=== PATIENT | male | born 1940 | race African-American/Black ===

== ENCOUNTER 2017-06-06 09:22 | Emergency (ER) | payer BC ==
[~2017-06-06 09:22] MED LIST: LISI-334 PO
[2017-06-06 09:38] VITALS: BP 148/67
--- NOTE | 2017-06-06 09:48 | PHYS DOC ---
Past Medical History Past Medical History: Hypertension Additional Past Medical Histor: GOUT, ABDOMINAL AND UMBILICAL HERNIA Past Surgical History: Other Additional Past Surgical Histo: VASECTOMY, HERNIA REPAIR Alcohol Use: Occasionally Drug Use: None Adult General Chief Complaint Chief Complaint: R foot/ankle pain HPI HPI Patient is a 77 year old male who presents with R foot and ankle pain after a fall on Monday. He was standing on a wall and fell striking his R ankle/foot. He had pain and swelling and had been treating it as a gout attack with maciel-lord and red onion. Denies other injury, no headache/blurry vision/other extremity pain, no cp/sob/abd pain Review of Systems Review of Systems Constitutional: Denies fever or chills [] Eyes: Denies change in visual acuity, redness, or eye pain [] HENT: Denies nasal congestion or sore throat [] Respiratory: Denies cough or shortness of breath [] Cardiovascular:denies chest pain GI: Denies abdominal pain, nausea, vomiting, bloody stools or diarrhea [] : Denies dysuria or hematuria [] Musculoskeletal: Denies back pain Integument: Denies rash or skin lesions [] Neurologic: Denies headache, focal weakness or sensory changes [] All other systems were reviewed and found to be within normal limits, except as documented in this note. Allergies Allergies Allergies Coded Allergies Type Severity Reaction Last Updated Verified No Known Drug Allergies 10/25/13 No Physical Exam Physical Exam Constitutional: Well developed, well nourished, no acute distress, non-toxic appearance. HENT: Normocephalic, atraumatic Eyes: conjunctiva normal, no discharge. Neck:supple Cardiovascular:Heart rate regular with regular rhythm Lungs & Thorax: No respiratory distress Skin: Warm, dry Extremities: R foot with ttp lateral maleolus, anterior distal foot ttp, no deformity, FROM, normal strength, cap refill >3s, dp pulse intact, mild edema Neurologic: Alert and oriented X 3, normal sensory function, no focal deficits noted. Psychologic: mood normal. Current Patient Data Vital Signs Vital Signs Date Time Temp Pulse Resp B/P (MAP) Pulse Ox O2 Delivery O2 Flow Rate FiO2 06/06/17 09:38 97.5 92 16 148/67 (94) 98 Room Air 97.5 EKG EKG [] Radiology/Procedures Radiology/Procedures XRay R foot History: Fall, pain There is a mild hallux valgus deformity with moderate degenerative change at the first MTP joint. There is deformity of the fifth metatarsal shaft compatible with an old healed fracture. Minimal spurring is present at the midfoot level. A tiny calcific density along the dorsal aspect of the anterior portion of the talus is probably old. No acute fracture or dislocation is identified. There is mild generalized subcutaneous edema. IMPRESSION: 1. Chronic findings as described above. 2. No acute bony abnormality is detected. ankle:Indication: Fall with pain in the right ankle and right foot. Time of exam 9:43 AM 3 views of the right ankle were obtained. The alignment is normal. Ankle mortise is well-maintained. The talar dome is smooth. No fracture is seen. There is a large plantar calcaneal spur. Impression: No acute bony abnormality is detected. Course & Med Decision Making Course & Med Decision Making Pertinent Labs and Imaging studies reviewed. (See chart for details) pt declined pain meds. XRay R foot/ankle performed. No acute fracture/dislocation noted. Pt placed in stuart wrap, sprain care instructions given. Ibuprofen RX Dragon Disclaimer Dragon Disclaimer This electronic medical record was generated, in whole or in part, using a voice recognition dictation system. Departure Departure Impression: Primary Impression: Ankle sprain Additional Impression: Hand pain Disposition: 01 HOME, SELF-CARE Condition: STABLE Referrals: YANI CORBETT MD (PCP) Scripts Ibuprofen (IBUPROFEN) 600 Mg Tablet 600 MG PO PRN Q6HRS Y for PAIN, #20 TAB take with food or milk Prov: BETTY ANDERSEN MD 06/06/17 Problem Qualifiers BETTY ANDERSEN MD Jun 06, 2017 09:48
--- NOTE | 2017-06-06 10:00 | RAD ---
Indication: Fall with pain in the right ankle and right foot. Time of exam 9:43 AM 3 views of the right ankle were obtained. The alignment is normal. Ankle mortise is well-maintained. The talar dome is smooth. No fracture is seen. There is a large plantar calcaneal spur. Impression: No acute bony abnormality is detected.
--- NOTE | 2017-06-06 10:02 | RAD ---
Right foot, 3 views, 06/06/2017: History: Fall, pain There is a mild hallux valgus deformity with moderate degenerative change at the first MTP joint. There is deformity of the fifth metatarsal shaft compatible with an old healed fracture. Minimal spurring is present at the midfoot level. A tiny calcific density along the dorsal aspect of the anterior portion of the talus is probably old. No acute fracture or dislocation is identified. There is mild generalized subcutaneous edema. IMPRESSION: 1. Chronic findings as described above. 2. No acute bony abnormality is detected.
[2017-06-06] MEDS ORDERED: IBUP-1007 PO (10:07)
== END 2017-06-06 10:14 | disposition home or self-care (01) ==
LOC: ER 09:22
DX: S93.401A Sprain of unspecified ligament of right ankle, initial encounter (principal); M79.641 Pain in right hand; I10 Essential (primary) hypertension; M10.9 Gout, unspecified; W01.198A Fall on same level from slipping, tripping and stumbling with subsequent striking against other object, initial encounter; Y93.89 Activity, other specified; Y92.89 Other specified places as the place of occurrence of the external cause; Y99.8 Other external cause status
CPT/HCPCS: 73610; 73630; 99284

== ENCOUNTER → 2018-01-29 | Outpatient (CLI) | payer BC | END | disposition home or self-care (01) | LOC: RAD 13:04 | DX: M17.11 Unilateral primary osteoarthritis, right knee (principal); I10 Essential (primary) hypertension; J45.909 Unspecified asthma, uncomplicated; Z87.891 Personal history of nicotine dependence | CPT/HCPCS: 73562 ==

== ENCOUNTER 2019-11-12 16:21 | Emergency (ER) | payer BC, MEDICARE ==
[~2019-11-12] VITALS: Ht 294.6 cm; Wt 94.0 kg
[~2019-11-12 16:21] MED LIST changes: +IBUP-1007 PO
[2019-11-12 16:45] VITALS: BP 161/81
--- NOTE | 2019-11-12 17:21 | RAD ---
Right knee x-rays 4 views HISTORY: Right knee swelling, unable to bear weight. Pain. FINDINGS: No fracture. No dislocation. Osteoarthritis with bone spurring at the patellofemoral compartment and medial tibiofemoral compartment. There may be a suprapatellar joint effusion on the lateral view. There is anterior knee soft tissue edema about the quadriceps tendon and patellar tendon. Calcifications of the patella tendon may indicate tendinopathy. Arterial vascular calcifications upper calf. IMPRESSION: No acute osseous injury. Osteoarthritis. Anterior knee soft tissue edema and swelling. Probable mild joint effusion. Patellar tendon calcifications may indicate tendinopathy. Electronically signed by: Narciso Mera MD (11/12/2019 5:18 PM) [facility]
[2019-11-12] MEDS ORDERED: methylPREDNISolone SOD SUCC PF 125 MG/2 ML VIAL. IM ONE (17:45)
[2019-11-12] MEDS ORDERED: KETOROLAC 60 MG/2 ML VIAL. IM ONE (17:45)
[2019-11-12] MEDS ORDERED: DICL100G54 TP (17:58)
[2019-11-12] MEDS ORDERED: GABA-585 PO (17:58)
[2019-11-12] MEDS ORDERED: METH4TAB2 PO (17:58)
--- NOTE | 2019-11-12 17:59 | PHYS DOC ---
Past Medical History Past Medical History: Hypertension Additional Past Medical Histor: GOUT, ABDOMINAL AND UMBILICAL HERNIA Past Surgical History: Other Additional Past Surgical Histo: VASECTOMY, HERNIA REPAIR Smoking Status: Current Every Day Smoker Alcohol Use: Occasionally Drug Use: None Social History Narrative: LAST USE YESTERDAY General Adult EDM: Chief Complaint: KNEE SWELLING HPI: HPI: Patient is a 79 year old male with history of hypertension who presents to the ED today complaining of 9 out of 10 throbbing constant right knee pain that began on Monday, patient states the pain is worse on weightbearing. Reports is had similar pain before and was seen by the PCP who drained some fluid from his knee a couple of months ago. Patient states this did not improve his pain. Denies any fever. Denies any injury. Review of Systems: Review of Systems: Constitutional: Denies fever or chills. [] Musculoskeletal: Reports right knee pain Integument: Denies rash. [] Neurologic: Denies headache, focal weakness or sensory changes. [] Psychiatric: Denies depression or anxiety. [] Heart Score: Risk Factors: Risk Factors: DM, Current or recent (<one month) smoker, HTN, HLP, family history of CAD, obesity. Risk Scores: Score 0 - 3: 2.5% MACE over next 6 weeks - Discharge Home Score 4 - 6: 20.3% MACE over next 6 weeks - Admit for Clinical Observation Score 7 - 10: 72.7% MACE over next 6 weeks - Early Invasive Strategies Current Medications: Current Medications Medications (Trade) Dose Ordered [facility] Start Time Stop Time Status Last Admin Dose Admin Ketorolac Tromethamine (Toradol Im) 60 mg 1X ONCE 11/12/19 17:45 11/12/19 17:46 DC Methylprednisolone Sodium Succinate (SOLU-Medrol 125MG VIAL) 125 mg 1X ONCE 11/12/19 17:45 11/12/19 17:46 DC Allergies: Allergies: Allergies Coded Allergies Type Severity Reaction Last Updated Verified No Known Drug Allergies 10/25/13 No Physical Exam: PE: Constitutional: Well developed, well nourished, no acute distress, non-toxic appearance. [] Skin: Warm, dry, no erythema, no rash. [] Back: No tenderness, no CVA tenderness. [] Extremities: Right knee with mild soft tissue swelling on the anterior aspect of the knee, no redness, no warmth. Tenderness diffusely on the anterior aspect of the knee especially with range of motion. Limited range of motion to the right knee due to pain. +2 right pedal pulse. Cap refill less than 2 seconds the right lower extremity. Neurologic: Alert and oriented X 3, normal motor function, normal sensory function, no focal deficits noted. [] Psychologic: Affect normal, judgement normal, mood normal. [] Current Patient Data: Vital Signs: Vital Signs Date Time Temp Pulse Resp B/P (MAP) Pulse Ox O2 Delivery O2 Flow Rate FiO2 11/12/19 16:45 99.2 93 14 161/81 (107) 100 Room Air 99.2 EKG: EKG: [] Radiology/Procedures: Radiology/Procedures: []PROCEDURE: KNEE RIGHT 4V Right knee x-rays 4 views HISTORY: Right knee swelling, unable to bear weight. Pain. FINDINGS: No fracture. No dislocation. Osteoarthritis with bone spurring at the patellofemoral compartment and medial tibiofemoral compartment. There may be a suprapatellar joint effusion on the lateral view. There is anterior knee soft tissue edema about the quadriceps tendon and patellar tendon. Calcifications of the patella tendon may indicate tendinopathy. Arterial vascular calcifications upper calf. IMPRESSION: No acute osseous injury. Osteoarthritis. Anterior knee soft tissue edema and swelling. Probable mild joint effusion. Patellar tendon calcifications may indicate tendinopathy. Electronically signed by: Jose Mera MD (11/12/2019 5:18 PM) [facility] [place] DICTATED and SIGNED BY: JOSE MERA MD DATE: 11/12/19 1718 Course & Med Decision Making: Course & Med Decision Making Pertinent Labs and Imaging studies reviewed. (See chart for details) This is a 79-year-old male patient presenting to the ED today with right knee pain that began on Monday. No known injury. Right knee x-rays interpreted by radiologist were negative for any acute findings, noted for small joint effusion, osteoarthritis, swelling and probable mild joint effusion and tendinitis. Khoa bandage was applied to the right knee by the mechanical sound technician, neurovascular exam is intact, patient was discharged with instructions to follow-up with orthopedic doctor. Savana Disclaimer: Savana Disclaimer: This electronic medical record was generated, in whole or in part, using a voice recognition dictation system. Departure Departure Impression: Primary Impression: Right knee pain Qualified Codes: M25.561 - Pain in right knee Additional Impressions: Joint effusion, knee Qualified Codes: M25.461 - Effusion, right knee Tendinitis of right knee Osteoarthritis Qualified Codes: M17.11 - Unilateral primary osteoarthritis, right knee Disposition: HOME, SELF-CARE Condition: STABLE Referrals: YANI CORBETT MD (PCP) BRENDA HAQUE MD follow up in the course of this week Patient Instructions: Arthritis, Degenerative-Brief, Knee Pain, [id number] Additional Instructions: You were evaluated in the emergency room for right knee pain, your right knee x- rays are negative for any acute findings, you were noted to have arthritis in your knee, possible joint effusion and tendinitis. We provided you an orthopedic doctor, contact the office tomorrow and set up a follow-up appointment. Wear the Khoa bandage provided as tolerated. Try to ice and elevate the extremity. Take the prescribed medications as ordered. Scripts Gabapentin (GABAPENTIN ) 100 Mg Capsule 100 MG PO TID PRN for PAIN, #25 CAP Prov: DARREL DIMAS APRN 11/12/19 Methylprednisolone (MEDROL) 4 Mg Tab.ds.pk 1 PKG PO UD, #1 PKG Prov: DARREL DIMAS APRN 11/12/19 Diclofenac Sodium (VOLTAREN) 100 Gm Gel..gram. 1 GM TP QID for pain for 30 Days, #1 EACH 0 Refills apply to affected area(s) Prov: DARREL DIMAS APRN 11/12/19 DARREL DIMAS APRN November 12, 2019 17:59
== END 2019-11-12 18:00 | disposition home or self-care (01) ==
LOC: ER 16:21
DX: M25.461 Effusion, right knee (principal); M25.561 Pain in right knee; M17.11 Unilateral primary osteoarthritis, right knee; I10 Essential (primary) hypertension; F17.200 Nicotine dependence, unspecified, uncomplicated; Z90.89 Acquired absence of other organs; Z98.890 Other specified postprocedural states
CPT/HCPCS: 73564; 96372; 99284; J1885; J2930

== ENCOUNTER 2019-12-23 16:06 | Inpatient (IN) | payer MEDICARE ==
[~2019-12-23] VITALS: Ht 170.2 cm; Wt 91.7 kg
[~2019-12-23 16:06] MED LIST changes: +DICL100G54 TP; +GABA-585 PO; +METH4TAB2 PO
[2019-12-23] MEDS ORDERED: ASPIRIN CHEWABLE 81 MG TABLET. PO ONE (16:45)
--- NOTE | 2019-12-23 17:00 | PHYS DOC ---
Past Medical History Past Medical History: Hypertension Additional Past Medical Histor: GOUT, ABDOMINAL AND UMBILICAL HERNIA Past Surgical History: Other Additional Past Surgical Histo: VASECTOMY, HERNIA REPAIR Smoking Status: Current Every Day Smoker Alcohol Use: Occasionally Drug Use: None General Adult EDM: Chief Complaint: WEAKNESS/GENERALIZED HPI: HPI: Patient is a 79-year-old male who presents with generalized weakness chest pain and sweating. He states he was out working in the yard when he started sweating profusely and developed a little chest tightness. He is never had this before. Patient states currently he feels so weak he is just unable to get up and do anything. [] Review of Systems: Review of Systems: Constitutional: Denies fever or chills. [] Eyes: Denies change in visual acuity. [] HENT: Denies nasal congestion or sore throat. [] Respiratory: Denies cough or shortness of breath. [] Cardiovascular: Per HPI [] GI: Denies abdominal pain, nausea, vomiting, bloody stools or diarrhea. [] : Denies dysuria. [] Musculoskeletal: Denies back pain or joint pain. [] Integument: Denies rash. [] Neurologic: Denies headache, focal weakness or sensory changes. [] Endocrine: Denies polyuria or polydipsia. [] Lymphatic: Denies swollen glands. [] Psychiatric: Reports depression [] Heart Score: HEART Score for Chest Pain: HEART Score for Chest Pain Response (Comments) Value History Moderately Suspicious 1 Age > 65 2 Risk Factors 1 or 2 Risk Factors 1 Troponin < Normal Limit 0 Total 4 Risk Factors: Risk Factors: DM, Current or recent (<one month) smoker, HTN, HLP, family history of CAD, obesity. Risk Scores: Score 0 - 3: 2.5% MACE over next 6 weeks - Discharge Home Score 4 - 6: 20.3% MACE over next 6 weeks - Admit for Clinical Observation Score 7 - 10: 72.7% MACE over next 6 weeks - Early Invasive Strategies Current Medications: Current Medications Medications (Trade) Dose Ordered Sig/Li Start Time Stop Time Status Last Admin Dose Admin Aspirin (Aspirin Chewable) 324 mg 1X ONCE 12/23/19 16:45 12/23/19 16:46 DC 12/23/19 16:55 324 MG Allergies: Allergies: Allergies Coded Allergies Type Severity Reaction Last Updated Verified No Known Drug Allergies 10/25/13 No Physical Exam: PE: Constitutional: Frail elderly male in no acute distress. [] HENT: Normocephalic, atraumatic, bilateral external ears normal, oropharynx moist, no oral exudates, nose normal. [] Eyes: PERRLA, EOMI, conjunctiva normal, no discharge. [] Neck: Normal range of motion, no tenderness, supple, no stridor. [] Cardiovascular:Heart rate regular rhythm, no murmur [] Lungs & Thorax: Bilateral breath sounds clear to auscultation [] Abdomen: Bowel sounds normal, soft, no tenderness, no masses, no pulsatile masses. [] Skin: Warm, dry, no erythema, no rash. [] Back: No tenderness, no CVA tenderness. [] Extremities: No tenderness, no cyanosis, no clubbing, ROM intact, no edema. [] Neurologic: Alert and oriented X 3, normal motor function, normal sensory function, no focal deficits noted. [] Psychologic: Depressed affect [] EKG: EKG: [] EKG: Normal sinus rhythm rate of [address]-T changes Radiology/Procedures: Radiology/Procedures: []PROCEDURE: CHEST AP ONLY CHEST AP ONLY History: Reason: chest pain / Spl. Instructions: / History: Comparison: July 23, 2015 Findings: No consolidation or pleural effusion. Normal heart size. No pneumothorax. Calcified right lower lung nodule, likely prior granulomatous disease. Nodular opacity projecting over the left mid lung measures 9 mm. Impression: 1. No acute cardiopulmonary process. 2. Nodular opacity projecting over the left midlung, may represent summation artifact or nodule. Nonemergent CT can further assess as clinically warranted. Course & Med Decision Making: Course & Med Decision Making Pertinent Labs and Imaging studies reviewed. (See chart for details) [ED course: Evaluation of is a 79-year-old male with a heart score of 4. His symptoms were concerning for cardiac in origin. Although his laboratory studies were relatively unremarkable I believe it is in the patient's best interest to stay and be risk stratified.] Dragon Disclaimer: Dragon Disclaimer: This electronic medical record was generated, in whole or in part, using a voice recognition dictation system. Departure Departure Impression: Primary Impression: Chest pain Qualified Codes: R07.9 - Chest pain, unspecified Disposition: 09 ADMITTED INPATIENT Admitting Physician: Yani Cheatham Condition: STABLE Referrals: YANI CHEATHAM MD (PCP) Justicifation of Admission Dx: Justifications for Admission: Justification of Admission Dx: Yes Angina: New-Onset MADELINE NUENS DO Dec 23, 2019 17:00
[2019-12-23 17:12] LABS: BASO # 0.1 x10^3/uL (0.0-0.2); BASO % 1 % (0-3); EOS # 0.2 x10^3/uL (0.0-0.7); EOS % 4 % (0-3); HEMATOCRIT 34.8 % (39.0-53.0); HEMOGLOBIN 12.3 g/dL (13.0-17.5); LYMPH # 1.2 x10^3/uL (1.0-4.8); LYMPH % 26 % (24-48); MEAN CORPUSCULAR HEMOGLOBIN 34 pg (25-35); MEAN CORPUSCULAR HGB CONC 35 g/dL (31-37); MEAN CORPUSCULAR VOLUME 97 fL (79-100); MONO # 0.6 x10^3/uL (0.0-1.1); MONO % 13 % (0-9); NEUT # 2.7 x10^3/uL (1.8-7.7); NEUT % 56 % (31-73); PLATELET COUNT 238 x10^3/uL (140-400); RED BLOOD COUNT 3.59 x10^6/uL (4.30-5.70); RED CELL DISTRIBUTION WIDTH 13.5 % (11.5-14.5); WHITE BLOOD COUNT 4.9 x10^3/uL (4.0-11.0)
[2019-12-23 17:24] LABS: CALCIUM 8.7 mg/dL (8.5-10.1); CREATININE 1.4 mg/dL (0.7-1.3); GFR 59.3; POTASSIUM 4.5 mmol/L (3.5-5.1)
--- NOTE | 2019-12-23 17:24 | RAD ---
CHEST AP ONLY History: Reason: chest pain / Spl. Instructions: / History: Comparison: July 23, 2015 Findings: No consolidation or pleural effusion. Normal heart size. No pneumothorax. Calcified right lower lung nodule, likely prior granulomatous disease. Nodular opacity projecting over the left mid lung measures 9 mm. Impression: 1. No acute cardiopulmonary process. 2. Nodular opacity projecting over the left midlung, may represent summation artifact or nodule. Nonemergent CT can further assess as clinically warranted. Electronically signed by: Philippe Montoya DO (12/23/2019 5:21 PM) [id number]
[2019-12-23 17:29] LABS: ALBUMIN 3.5 g/dL (3.4-5.0); MAGNESIUM 1.8 mg/dL (1.8-2.4); TOTAL BILIRUBIN 0.3 mg/dL (0.2-1.0)
[2019-12-23] MEDS ORDERED: NITROGLYCERIN SUBLINGUAL 0.4 MG BOTTLE OF 25. SL PRN (17:45)
[2019-12-23] MEDS ORDERED: ONDANSETRON PF 4 MG/2 ML VIAL. IV PRN (17:45)
[2019-12-23] MEDS ORDERED: ACETAMINOPHEN 325 MG TABLET. PO PRN (17:45)
[2019-12-23 18:55] VITALS: BP 173/76
[2019-12-23] MEDS ORDERED: ALLO100T PO (19:51)
[2019-12-23 23:00] VITALS: BP 170/87
[2019-12-24 03:40] VITALS: BP 162/79
--- NOTE | 2019-12-24 06:19 | EKG ---
[facility] [address] [place] [address] Test Date: 2019-12-23 Test Time: 16:47:40 Pat Name: JULI BALL Department: Room: 250 1 Gender: M Clinical Quality Rn: : 1940 Requested By: MADELINE NUNES Order Number: [id number] Reading MD: De Pablo MD Measurements Intervals [place] Rate: 82 P: 34 GA: 186 QRS: 9 QRSD: 72 T: 24 QT: 330 QTc: 388 Interpretive Statements SINUS RHYTHM Electronically Signed On 01-20-2020 9:37:31 CDT by De Pablo MD
[2019-12-24 07:00] VITALS: BP 144/78
[2019-12-24] MEDS ORDERED: GABAPENTIN 100 MG CAPSULE. PO PRN (07:45)
--- NOTE | 2019-12-24 07:49 | PDOC ---
Provider Note Provider Note H&P to be dictated.#[id number] Justicifation of Admission Dx: Justifications for Admission: Justification of Admission Dx: Yes Comments: CHEST PAIN EVALUATION YANI CORBETT MD Dec 24, 2019 07:49
[2019-12-24] MEDS ORDERED: LISINOPRIL 10 MG TABLET PO SCH (09:00)
[2019-12-24] MEDS: DICLOFENAC SODIUM 1% TOPICAL GEL 100GM TUBE. TP SCH ×2 (09:00→13:00)
[2019-12-24] MEDS ORDERED: ALLOPURINOL 100 MG TABLET. PO SCH (09:00)
[2019-12-24 09:02] LABS: CHOLESTEROL/HDL RATIO 2.6
--- NOTE | 2019-12-24 09:07 | PDOC2 ---
VIRGIL JONES BUSINESS BROKER 12/24/19 0907: CARDIAC CONSULT DATE OF CONSULT Date of Consult DATE: 12/24/19 TIME: 09:02 REASON FOR CONSULT Reason for Consult: Chest pain REFERRING PHYSICIAN Referring Physician: Dr. Estrella SOURCE Source: Chart review, Patient HISTORY OF PRESENT ILLNESS HISTORY OF PRESENT ILLNESS This is a 79 yo male who presented secondary to chest pain. Patient reports pain began last Monday. Was out working in the yard in the sun and began having tightness in his central chest. Was diaphoretic and slightly short of breath. No dizziness, palpitations, or nausea/vomiting. Pain resolved with rest. Yesterday, was out working in the yard again and developed central chest tightness again after about a hour of work. [place] short of breath and was very diaphoretic. No palpitations or nausea/vomiting. He rested and pain did not resolved so he came in for further evaluation and treatment. Pain resolved in ED and has not returned since. PAST MEDICAL HISTORY Cardiovascular: HTN Rheumatologic: Gout Renal/: Chronic renal insuff PAST SURGICAL HISTORY Past Surgical History: No pertinent history FAMILY HISTORY Family History: Hypertension SOCIAL HISTORY Smoke: <1 pack per day ALCOHOL: heavy (3 beers and 1/2 pint Gin daily ) Drugs: Marijuana Lives: Alone CURRENT MEDICATIONS CURRENT MEDICATIONS Current Medications Medications (Trade) Dose Ordered Sig/Li Route PRN Reason Start Time Stop Time Status Last Admin Dose Admin Aspirin (Aspirin Chewable) 324 mg 1X ONCE PO 12/23/19 16:45 12/23/19 16:46 DC 12/23/19 16:55 Allopurinol (Zyloprim) 100 mg DAILY PO 12/24/19 09:00 12/24/19 08:44 Lisinopril (Prinivil) 10 mg DAILY PO 12/24/19 09:00 12/24/19 08:45 ALLERGIES ALLERGIES: Coded Allergies: No Known Drug Allergies (Unverified , 10/25/13) ROS Review of System 14 point ROS conducted with pertinent positives noted above in HPI PHYSICAL EXAM General: Alert, Oriented X3, Cooperative, No acute distress HEENT: Atraumatic, Mucous membr. moist/pink Lungs: Clear to auscultation Heart: Regular rate, Normal S1, Normal S2 Abdomen: Soft, No tenderness Extremities: No edema, Normal pulses Skin: No significant lesion Neuro: Normal speech, Sensation intact Psych/Mental Status: Mental status NL, Mood NL MUSCULOSKELETAL: Osteoarthritic changes both hands VITALS/I&O VITALS/I&O: Vital Signs Date Time Temp Pulse Resp B/P (MAP) Pulse Ox O2 Delivery O2 Flow Rate FiO2 12/24/19 08:45 66 144/78 12/24/19 08:00 Room Air 12/24/19 03:40 98.4 18 97 98.4 I & O 12/23/19 12/23/19 12/24/19 15:00 23:00 07:00 Intake Total 0 ml Balance 0 ml LABS Lab: Laboratory Tests Test 12/23/19 17:03 12/23/19 20:55 12/23/19 23:59 12/24/19 08:05 White Blood Count 4.9 x10^3/uL (4.0-11.0) Red Blood Count 3.59 x10^6/uL (4.30-5.70) L Hemoglobin 12.3 g/dL (13.0-17.5) L Hematocrit 34.8 % (39.0-53.0) L Mean Corpuscular Volume 97 fL (79-100) Mean Corpuscular Hemoglobin 34 pg (25-35) Mean Corpuscular Hemoglobin Concent 35 g/dL (31-37) Red Cell Distribution Width 13.5 % (11.5-14.5) Platelet Count 238 x10^3/uL (140-400) Neutrophils (%) (Auto) 56 % (31-73) Lymphocytes (%) (Auto) 26 % (24-48) Monocytes (%) (Auto) 13 % (0-9) H Eosinophils (%) (Auto) 4 % (0-3) H Basophils (%) (Auto) 1 % (0-3) Neutrophils # (Auto) 2.7 x10^3/uL (1.8-7.7) Lymphocytes # (Auto) 1.2 x10^3/uL (1.0-4.8) Monocytes # (Auto) 0.6 x10^3/uL (0.0-1.1) Eosinophils # (Auto) 0.2 x10^3/uL (0.0-0.7) Basophils # (Auto) 0.1 x10^3/uL (0.0-0.2) Sodium Level 137 mmol/L (136-145) Potassium Level 4.5 mmol/L (3.5-5.1) Chloride Level 105 mmol/L (98-107) Carbon Dioxide Level 21 mmol/L (21-32) Anion Gap 11 (6-14) Blood Urea Nitrogen 18 mg/dL (8-26) Creatinine 1.4 mg/dL (0.7-1.3) H Estimated GFR (Cockcroft-Gault) 59.3 BUN/Creatinine Ratio 13 (6-20) Glucose Level 95 mg/dL (70-99) Calcium Level 8.7 mg/dL (8.5-10.1) Magnesium Level 1.8 mg/dL (1.8-2.4) Total Bilirubin 0.3 mg/dL (0.2-1.0) Aspartate Amino Transferase (AST) 23 U/L (15-37) Alanine Aminotransferase (ALT) 18 U/L (16-63) Alkaline Phosphatase 78 U/L (46-116) Troponin I Quantitative < 0.017 ng/mL (0.000-0.055) < 0.017 ng/mL (0.000-0.055) < 0.017 ng/mL (0.000-0.055) WU-Kpm-R-Type Natriuretic Peptide 41 pg/mL (0-449) Total Protein 7.0 g/dL (6.4-8.2) Albumin 3.5 g/dL (3.4-5.0) Albumin/Globulin Ratio 1.0 (1.0-1.7) Triglycerides Level 172 mg/dL (0-150) H Cholesterol Level 134 mg/dL (0-200) LDL Cholesterol, Calculated 49 mg/dL (0-100) VLDL Cholesterol, Calculated 34 mg/dL (0-40) Non-HDL Cholesterol Calculated 83 mg/dL (0-129) HDL Cholesterol 51 mg/dL (40-60) Cholesterol/HDL Ratio 2.6 Laboratory Tests 12/23/19 17:03 Laboratory Tests 12/23/19 17:03 ASSESSMENT/PLAN ASSESSMENT/PLAN 1. Chest pain, mixed features. AMI ruled out. EKG without significant acute changes 2. Accelerated hypertension; now better controlled 3. KEYSHA vs CKD 4. ETOH misuse; 3 beers and 1/2 pint Gin daily. Discussed decreasing consumption 5. Tobaccoism; discussed/encouraged cessation Recommendations ASA Lipids Oral hydration Echo to assess LV systolic function Discussed need for further ischemic evaluation. Further risk stratification with MPI versus definitive evaluation with left heart cath discussed. Patient would prefer to be discharged and do further workup on an outpatient basis. CK ALVAREZ MD 12/24/19 2121: CARDIAC CONSULT ASSESSMENT/PLAN ASSESSMENT/PLAN Patient seen and examined. Agree with above nurse practitioner note. Echocardiogram unremarkable. Cardiac enzymes negative. Okay to discharge with outpatient follow-up and stress testing. Thank you for this consultation. VIRGIL JONES APRN Dec 24, 2019 09:07 CK ALVAREZ MD Dec 24, 2019 16:57
--- NOTE | 2019-12-24 09:13 | RAD ---
EXAM: Chest CT without intravenous contrast. HISTORY: Pulmonary nodule on chest radiograph. TECHNIQUE: Computed tomographic images of the chest were obtained without contrast. Multiplanar reformatting was performed. *One or more of the following individualized dose reduction techniques were utilized for this examination: 1. Automated exposure control. 2. Adjustment of the mA and/or kV according to patient size. 3. Use of iterative reconstruction technique. COMPARISON: Chest radiograph dated 12/23/2019. FINDINGS: There is minimal biapical predominant emphysema. There is no pneumothorax or pleural effusion. There is no infiltrate. There is mild central bronchial wall thickening. There are calcified right hilar, subcarinal and infrahilar granulomas. There is a 10 mm pleural-based groundglass opacity within the anterior medial left upper lobe, the appearance of which favors atelectasis or scarring. No pathologically enlarged lymph node is seen. The heart is normal in size. There is calcified atherosclerotic plaque involving the coronary arteries. There are a few small hypodense lesions within the liver, the largest of which measures 2.1 cm with attenuation consistent with a cyst. There are few smaller lesions which are too small to characterize on this noncontrast exam. There is colonic diverticulosis, partially included on the oaizl-jk-coao. There are degenerative changes involving the spine. There is no suspicious osseous lesion. IMPRESSION: 1. Minimal emphysema and bronchial wall thickening suggesting the sequela of bronchitis. There is no acute infiltrate. 2. 10 mm pleural-based groundglass opacity within the anterior medial left upper lobe, the appearance of which favors atelectasis or scarring. No suspicious pulmonary nodule is seen. 3. Several small hepatic cysts. There are few small hypodense lesions within the liver which are too small to characterize in the absence of contrast. These are also likely too small to characterize sonographically. If there is no history of primary malignancy, these are also likely cysts. Electronically signed by: Abi Luis MD (12/24/2019 9:11 AM) [id number]
[2019-12-24 11:00] VITALS: BP 133/73
--- NOTE | 2019-12-24 11:45 | NUR ---
SS following for discharge planning. SS reviewed pt chart and discussed with pt RN. Pt is from home and is currently on room air. Pt having cardiac workup. SS will continue to follow for discharge planning.
[2019-12-24] MEDS ORDERED: ASPIRIN ENTERIC COATED 81 MG TABLET.DR. PO SCH (13:00)
--- NOTE | 2019-12-24 15:20 | NUR ---
Discharge Note: JULI BALL [address] [place] [address] The following instructions and handouts were given: patient not willing to wait for discharge order/instructions to be put in computer by Dr. Cheatham so he left without paperwork. Cardiology's card was given to patient however. Discontinued lines and drains: Peripheral IV intact. Patient discharged to Home or Self Care with Significant Other via Ambulated at 1520.
--- NOTE | 2019-12-24 16:13 | CARD ---
MR#: [id number] Date of Study: 12/24/2019 Ordering Physician: YANI CORBETT, Referring Physician: YANI CORBETT, Tech: Barbara Singh APPROVED REPORT EXAM: Two-dimensional and M-mode echocardiogram with Doppler and color Doppler. Other Information Quality : AverageHR: 84bpm INDICATION Chest Pain 2D DIMENSIONS RVDd2.6 (2.9-3.5cm)Left Atrium(2D)3.6 (1.6-4.0cm) IVSd1.1 (0.7-1.1cm)Aortic Root(2D)3.2 (2.0-3.7cm) LVDd5.2 (3.9-5.9cm)LVOT Diameter2.4 (1.8-2.4cm) PWd1.1 (0.7-1.1cm)LVDs3.0 (2.5-4.0cm) FS (%) 42.0 %SV94.5 ml LVEF(%)72.7 (>50%) Aortic Valve AoV Peak Rajendra.177.1cm/sAoV VTI28.2cm AO Peak GR.12.5mmHgLVOT Peak Rajendra.143.6cm/s LVOT VTI 27.02cmAO Mean GR.6mmHg REID (VMAX)2.09yt2YYX (VTI)4.37cm2 Mitral Valve MV E Oujztmtb77.5cm/sMV DECEL ORDM745uh MV A Wwqkqdhd05.0cm/sMV E Mean Gr.2mmHg MV VGG950qgO/A Ratio0.7 MVA (PHT)2.19cm2 TDI E/Lateral E'9.0E/Medial E'9.5 Pulmonary Valve PV Peak Vmdolcuk198.3cm/sPV Peak Grad.5mmHg Tricuspid Valve TR P. Zbozqoew481yx/sRAP WIEVTPOG7vgWb TR Peak Gr.70msDhUESM17akKc Pulmonary Vein S1 Vslmdoeg49.3cm/sD2 Zdrxycry15.4cm/s PVa evffgvow352fbju LEFT VENTRICLE The left ventricle is normal size. There is mild concentric left ventricular hypertrophy. The left ve ntricular systolic function is normal and the ejection fraction is within normal range. The Ejection Fraction is 55-60%. There is normal LV segmental wall motion. Transmitral Doppler flow pattern is Gra de I-abnormal relaxation pattern. RIGHT VENTRICLE The right ventricle is normal size. There is normal right ventricular wall thickness. The right ventr icular systolic function is normal. ATRIA The left atrium size is normal. The right atrium size is normal. The interatrial septum is intact wit h no evidence for an atrial septal defect or patent foramen ovale as noted on 2-D or Doppler imaging. AORTIC VALVE The aortic valve is normal in structure and function. Doppler and Color Flow revealed no significant aortic regurgitation. There is no significant aortic valvular stenosis. MITRAL VALVE The mitral valve is normal in structure and function. There is no evidence of mitral valve prolapse. There is no mitral valve stenosis. Doppler and Color Flow revealed no mitral valve regurgitation note d. TRICUSPID VALVE The tricuspid valve is normal in structure and function. Doppler and Color Flow revealed trace tricus pid regurgitation with an estimated PAP of 34 mmHg. There is no tricuspid valve stenosis. PULMONIC VALVE The pulmonic valve is not well visualized. Doppler and Color Flow revealed trace to mild pulmonic jazmin vular regurgitation. There is no pulmonic valvular stenosis. GREAT VESSELS The aortic root is normal in size. The IVC is normal in size and collapses >50% with inspiration. PERICARDIAL EFFUSION There is no evidence of significant pericardial effusion. Critical Notification Critical Value: No <Conclusion> The left ventricular systolic function is normal and the ejection fraction is within normal range. T he Ejection Fraction is 55-60%. There is normal LV segmental wall motion. Signed by : De Pablo, Electronically Approved : 12/24/2019 16:12:37
--- NOTE | 2019-12-24 16:58 | HP ---
ADMIT DATE: LOCATION: . REASON FOR ADMISSION TO THE HOSPITAL: Chest discomfort feels weak, tired. CONSULTATION: Dr. Chandler. PROCEDURES DONE: CT chest. COMPLICATIONS NOTED: None. HISTORY OF PRESENT ILLNESS: The patient is a 79-year-old male patient with history of hypertension, gout. He has been feeling like not feeling well, like feeling passing out and some discomfort, tightness, but nothing significant was brought into the hospital and EKG. Cardiac enzymes negative, was admitted for rule out CA. The patient was seen by Cardiology. Chest x-ray shows nodule in the lung. CT chest did not show any nodules. The patient is seen by Cardiology, scheduled as outpatient echo and a stress test. PAST MEDICAL HISTORY: Hypertension, gout, umbilical hernia. PAST SURGICAL HISTORY: Vasectomy, hernia repair, arthritis. MEDICATIONS: The patient is on allopurinol 100 mg daily, gabapentin 100 mg 3 times a day, lisinopril 20 mg daily, diclofenac gel. PERSONAL HISTORY: Smokes half a pack for at least 40 years. The patient is a social alcoholic. Denies any street drugs. ALLERGIES: Negative. REVIEW OF SYSTEMS: The patient is not sweating, not short of breath at this point. No fever. Only felt tired at that time and much better now. PHYSICAL EXAMINATION: GENERAL: The patient is pleasant, not in any distress. VITAL SIGNS: Temperature 98, pulse 80, respirations 20, blood pressure 170/87, 99 on room air. HEENT: Head is atraumatic. Pupils equal. Oral cavity: Dentures. NECK: Supple. Thyroid not enlarged. JVD not elevated. CHEST: Symmetrical. No tenderness to deep palpation. LUNGS: Clear to auscultation. No wheezing. ABDOMEN: Soft, bowel sounds present, no mass palpable. EXTERNAL GENITALIA: No Bhatt. RECTAL: Deferred. EXTREMITIES: No calf tenderness, no edema. The patient has arthritis in the knee. Pulses 1+. NEUROLOGIC: Moving all extremities. No focal deficits noted. LABORATORY DATA: Shows a white count of 5, hemoglobin 12, platelets 238. Electrolytes are sodium 137, potassium 4.5, chloride 105, bicarbonate 21, BUN 18, creatinine 1.4, glucose 95, magnesium 1.8. LFTs are normal. Troponin was negative x 3. Cholesterol was normal. TSH was normal. Chest x-ray shows possible 9 mm left mid lung nodule, possible CT of the chest did not show any lung nodules, some scarring medial left upper lobe and an EKG done, report pending. No acute CA. Echocardiogram was done, report is pending. FINAL IMPRESSION: 1. Chest discomfort. 2. Hypertension. 3. Mild renal insufficiency. 4. Gout. 5. Arthritis. 6. Smoking. PLAN: At this time, was admitted to the hospital. Serial cardiac enzymes, Cardiology consultation, cafeteria monitor and as mentioned, CT chest was negative. Would recommend outpatient stress test. YANI CORBETT MD DR: MAYELIN/marya JOB#: [id number] / [id number]
--- NOTE | 2019-12-25 14:59 | PDOC ---
Provider Note Provider Note Discharge summary dictated.#[id number]. Justicifation of Admission Dx: Justifications for Admission: Justification of Admission Dx: Yes YANI CORBETT MD Dec 25, 2019 14:59
--- NOTE | 2019-12-25 15:49 | DS ---
DATE OF DISCHARGE: 12/24/2019 REASON FOR ADMISSION TO THE HOSPITAL: Chest pain. CONSULTATION: Dr. Chandler. PROCEDURES DONE: 1. CT chest. 2. Echocardiogram. HOSPITAL COURSE: The patient is a 79-year-old male. The patient was not feeling well, history of hypertension, gout, arthritis. He felt something heaviness in the chest, came into the emergency room. EKG negative, cardiac enzymes negative, was admitted overnight. Had x-ray shows some nodule less than a centimeter in the left lung. Had a CT chest was mostly scarring nodule. The patient had echocardiogram shows a good left ventricular function. It was decided that the patient could be discharged home and do outpatient stress test. Ejection fraction 55%, normal left ventricular function. FINAL IMPRESSION: 1. Heaviness in the chest does not look like acute cardiac event at this time; however, needs for outpatient cardiac stress test. 2. Hypertension. 3. Arthritis. 4. Gout. DISPOSITION: Home. Follow up outpatient. Smoking counseling was done. Schedule outpatient stress test. YANI CORBETT MD DR: MAYELIN/marya JOB#: [id number] / [id number] MONI
== END 2019-12-24 15:20 | disposition home or self-care (01) | DRG 392 ==
LOC: ER 16:06 → 2 SOUTH 17:35
PROVIDERS: ADMIT Internal Medicine; ATTEND Internal Medicine
DX: K21.9 Gastro-esophageal reflux disease without esophagitis (principal); F17.210 Nicotine dependence, cigarettes, uncomplicated; I12.9 Hypertensive chronic kidney disease with stage 1 through stage 4 chronic kidney disease, or unspecified chronic kidney disease; M10.9 Gout, unspecified; M19.90 Unspecified osteoarthritis, unspecified site; N18.9 Chronic kidney disease, unspecified; Z82.49 Family history of ischemic heart disease and other diseases of the circulatory system; Z71.6 Tobacco abuse counseling; Z79.899 Other long term (current) drug therapy
CPT/HCPCS: 36415; 71045; 71250; 80053; 80061; 83735; 83880; 84443; 84484; 85025; 93005; 93306; 99285-25; G0378

== ENCOUNTER → 2020-02-11 | Outpatient (CLI) | payer MEDICARE ==
[~2020-02-11] MED LIST changes: +ALLO100T PO; +IOHEXOL 240 MG/ML 50ML VIAL. PO ONE; +IOHEXOL 300 MG/ML 100ML VIAL. IV ONE
--- NOTE | 2020-02-11 17:43 | RAD ---
CT abdomen and pelvis with IV contrast HISTORY: One month lower abdomen pain COMPARISON: None TECHNIQUE: Computed tomographic imaging of the abdomen and pelvis was performed following the uneventful intravenous administration of 75 cc Omnipaque 300 nonionic iodinated contrast material. PQRS Compliance Statement: One or more of the following individualized dose reduction techniques were utilized for this examination: 1. Automated exposure control 2. Adjustment of the mA and/or kV according to patient size 3. Use of iterative reconstruction technique FINDINGS: Adjacent low-density lesions in the posterior lateral aspect of segment 2 of the liver. Multiple small low-density lesions seen in segment 4A and segment 8 in the liver. Also low-density lesion in segment IVb and 6 segment 5 and 6 are present. Gallbladder unremarkable Multiple small low-density lesions in both kidneys are present. No overtly suspicious pattern is present. Adrenal glands unremarkable Pancreas unremarkable Spleen unremarkable Complex heterogeneous mass involving the inferior cecum with surrounding edema of the adjacent fat and multiple focal low-density collections within it measures 75 x 50 x 84 mm. Bladder unremarkable Prostate unremarkable IMPRESSION: Large 8 cm mass involving the cecum without visualization of the appendix that is complex and has low-density collections and is surrounded by inflammation or edema of the adjacent fat. Diagnostic considerations are a complex cecal mass with a mucinous etiology or possibly a complex appendicitis FOR INTERNAL CODING PURPOSES Critical result: Findings discussed with YANI CORBETT at 02/11/2020 5:39 PM. RESULT CODE: (C) Low-density lesions in the liver most likely reflect cysts although hepatic abscesses or metastasis are not excluded Bilateral renal cystic lesions with no suspicious characteristics. Electronically signed by: Reynaldo Drake MD (02/11/2020 5:40 PM) [id number]
== END | disposition home or self-care (01) ==
LOC: CT 08:50
PROVIDERS: ATTEND Internal Medicine
DX: N28.9 Disorder of kidney and ureter, unspecified (principal); K63.89 Other specified diseases of intestine; R10.9 Unspecified abdominal pain
CPT/HCPCS: 74177; Q9966; Q9967

== ENCOUNTER 2020-02-18 13:45 | Inpatient (IN) | payer MEDICARE ==
[~2020-02-18] VITALS: Ht 170.2 cm; Wt 88.9 kg
[~2020-02-18 13:45] MED LIST changes: -IOHEXOL 240 MG/ML 50ML VIAL. PO ONE; -IOHEXOL 300 MG/ML 100ML VIAL. IV ONE
[2020-02-18 14:14] VITALS: BP 148/76
[2020-02-18 15:00] VITALS: BP 125/53
--- NOTE | 2020-02-18 16:24 | PDOC2 ---
GI CONSULT Date of Service: DATE: 02/18/20 TIME: 16:07 Reason For Consult: cecal mass HPI: HPI: 79 y/o male directly admitted by Dr. Cheatham. Reports lower abdominal pain - mostly RLQ but sometimes felt across lower abdomen to LLQ and up toward RLQ. Fairly constant though waxes and wanes in intensity - currently barely bothersome. Worse after eating. Additionally reports need for new dentures - has changed diet and doesn't eat as much as a result. Has lost ~30 pounds in 3-4 months. Had constipation a few weeks ago, resolved w/ a medication and has not recurred. Typically no issues w/ constipation. Denies reflux/heartburn, dysphagia, n/v, diarrhea, hematochezia, and melena. No previous EGD. Colonoscopy in 2013 w/ diverticulosis only. Says was supposed to have a colonoscopy tomorrow (but hasn't prepped or had COVID testing... maybe talking about upcoming office visit?). Denies GB, liver, pancreas, and PUD history. Smokes and drinks. Occasional NSAID for gout. Labs fairly unremarkable in 12/2019 - evaluated for chest pain then, I believe w/ recommendation for outpt stress test. PMH: PMH: HTN, CKD, gout vasectomy, RIH repair, umbilical hernia repair FH: Family History: No pertinent hx Social History: Smoke: <1 pack per day ALCOHOL: other (4 beers and a few shots - not every day) Drugs: Marijuana ROS: GEN: +occasional night sweats HEENT: Denies blurred vision, sore throat CV: Denies chest pain RESP: Denies shortness of air, cough GI: Per HPI : Denies hematuria, dysuria ENDO: +weight loss NEURO: Denies confusion, dizziness MSK: Denies weakness, joint pain/swelling SKIN: Denies jaundice, pruritus Vitals: Vitals: Vital Signs Date Time Temp Pulse Resp B/P (MAP) Pulse Ox O2 Delivery O2 Flow Rate FiO2 02/18/20 15:00 98.0 90 16 125/53 (77) 99 Room Air 98.0 Allergies: Coded Allergies: No Known Drug Allergies (Unverified , 10/25/13) Imaging: Imaging: CT A/P 02/11/20 FINDINGS: Adjacent low-density lesions in the posterior lateral aspect of segment 2 of the liver. Multiple small low-density lesions seen in segment 4A and segment 8 in the liver. Also low-density lesion in segment IVb and 6 segment 5 and 6 are present. Gallbladder unremarkable Multiple small low-density lesions in both kidneys are present. No overtlysuspicious pattern is present. Adrenal glands unremarkable Pancreas unremarkable Spleen unremarkable Complex heterogeneous mass involving the inferior cecum with surrounding edema of the adjacent fat and multiple focal low-density collections within it measures 75 x 50 x 84 mm. Bladder unremarkable Prostate unremarkable IMPRESSION: Large 8 cm mass involving the cecum without visualization of the appendix that is complex and has low-density collections and is surrounded by inflammation or edema of the adjacent fat. Diagnostic considerations are acomplex cecal mass with a mucinous etiology or possibly a complex appendicitis FOR INTERNAL CODING PURPOSES Critical result: Findings discussed with YANI CHEATHAM at 02/11/2020 5:39 PM. Low-density lesions in the liver most likely reflect cysts although hepatic abscesses or metastasis are not excluded Bilateral renal cystic lesions with no suspicious characteristics. Abd US 05/2014 IMPRESSION: 1. No significant gallbladder abnormality. 2. Numerous small hepatic cysts are again identified. 3. Tiny left renal cysts. 4. No acute abdominal abnormality is detected. PE: GEN: NAD HEENT: Atraumatic, PERRL LUNGS: diminished anteriorly HEART: RRR ABD: NABS, soft, RLQ discomfort tracking to LLQ and right mid abdomen EXTREMITY: No edema SKIN: No rashes, no jaundice NEURO/PSYCH: A & O 3 A/P: A/P: RLQ pain Abnormal CT - 8 cm mass involving the cecum without visualization of the appendix, suspected liver cysts Weight loss - attributed to denture issues and dietary changes CRC screen - last in 2013 Diverticulosis -- Await labs and MRI. Await surgery eval. Clears okay w/ GI but defer to surgery. Check COVID swab. OSVALDO WATERS Feb 18, 2020 16:24
--- NOTE | 2020-02-18 16:55 | NUR ---
Patient Shola Montiel 79 y/o male admitted due to cecal mass. He's alert, oriented x 4, denies pain, ambulatory on room air, VSS accompanied by the patient's girlfriend. He was oriented to the unit, call light placed within reach. Dr. Cheatham notified of admission, orders received.
[2020-02-18 18:09] LABS: BASO # 0.1 x10^3/uL (0.0-0.2); BASO % 1 % (0-3); EOS # 0.2 x10^3/uL (0.0-0.7); EOS % 5 % (0-3); HEMATOCRIT 28.4 % (39.0-53.0); HEMOGLOBIN 9.7 g/dL (13.0-17.5); LYMPH # 0.9 x10^3/uL (1.0-4.8); LYMPH % 20 % (24-48); MEAN CORPUSCULAR HEMOGLOBIN 32 pg (25-35); MEAN CORPUSCULAR HGB CONC 34 g/dL (31-37); MEAN CORPUSCULAR VOLUME 95 fL (79-100); MONO # 0.5 x10^3/uL (0.0-1.1); MONO % 10 % (0-9); NEUT # 3.1 x10^3/uL (1.8-7.7); NEUT % 65 % (31-73); PLATELET COUNT 581 x10^3/uL (140-400); RED BLOOD COUNT 2.99 x10^6/uL (4.30-5.70); RED CELL DISTRIBUTION WIDTH 14.2 % (11.5-14.5); WHITE BLOOD COUNT 4.8 x10^3/uL (4.0-11.0)
[2020-02-18 18:16] LABS: PROTHROMBIN TIME PATIENT 13.5 SEC (11.7-14.0)
[2020-02-18 18:23] LABS: ALBUMIN 2.9 g/dL (3.4-5.0); ALBUMIN/GLOBULIN RATIO 0.6 (1.0-1.7); CREATININE 1.3 mg/dL (0.7-1.3); GFR 64.6; POTASSIUM 5.1 mmol/L (3.5-5.1); TOTAL BILIRUBIN 0.4 mg/dL (0.2-1.0); TOTAL PROTEIN 7.7 g/dL (6.4-8.2)
[2020-02-18 19:00] VITALS: BP 136/61
--- NOTE | 2020-02-18 21:10 | NUR ---
NURSING NOTE Attempted to start IVF on pt. Pt refused to have them started, said he would be ok without them. Explained the purpose for IV hydration, but pt still refused.
[2020-02-18] MEDS: IV DEXTROSE 5% - 0.9 % NACL 1,000 ML IV SCH (21:15)
[2020-02-18] MEDS: diphenhydrAMINE HCL 25 MG CAPSULE PO PRN (22:44)
[2020-02-18 23:00] VITALS: BP 137/80
[2020-02-19 07:00] VITALS: BP 157/77
[2020-02-19] MEDS: ALLOPURINOL 100 MG TABLET. PO SCH (08:14)
[2020-02-19] MEDS: LISINOPRIL 10 MG TABLET PO SCH (08:15)
--- NOTE | 2020-02-19 09:01 | PDOC ---
Provider Note Provider Note Pt seen .H&P dictated.#[id number]. Justicifation of Admission Dx: Justifications for Admission: Justification of Admission Dx: Yes YANI CORBETT MD Feb 19, 2020 09:01
--- NOTE | 2020-02-19 10:25 | PDOC ---
Date of Service: DATE: 02/19/20 TIME: 10:22 Subjective: Subjective: Not much pain currently, says going to have an MRI. Objective: Vital Signs: Vital Signs Date Time Temp Pulse Resp B/P (MAP) Pulse Ox O2 Delivery O2 Flow Rate FiO2 02/19/20 08:15 79 157/77 02/19/20 07:00 97.8 18 97 Room Air 97.8 Labs: Laboratory Tests Test 02/18/20 17:40 02/18/20 18:30 White Blood Count 4.8 x10^3/uL Red Blood Count 2.99 x10^6/uL Hemoglobin 9.7 g/dL Hematocrit 28.4 % Mean Corpuscular Volume 95 fL Mean Corpuscular Hemoglobin 32 pg Mean Corpuscular Hemoglobin Concent 34 g/dL Red Cell Distribution Width 14.2 % Platelet Count 581 x10^3/uL Neutrophils (%) (Auto) 65 % Lymphocytes (%) (Auto) 20 % Monocytes (%) (Auto) 10 % Eosinophils (%) (Auto) 5 % Basophils (%) (Auto) 1 % Neutrophils # (Auto) 3.1 x10^3/uL Lymphocytes # (Auto) 0.9 x10^3/uL Monocytes # (Auto) 0.5 x10^3/uL Eosinophils # (Auto) 0.2 x10^3/uL Basophils # (Auto) 0.1 x10^3/uL Prothrombin Time 13.5 SEC Prothromb Time International Ratio 1.1 Sodium Level 135 mmol/L Potassium Level 5.1 mmol/L Chloride Level 99 mmol/L Carbon Dioxide Level 26 mmol/L Anion Gap 10 Blood Urea Nitrogen 18 mg/dL Creatinine 1.3 mg/dL Estimated GFR (Cockcroft-Gault) 64.6 BUN/Creatinine Ratio 14 Glucose Level 85 mg/dL Calcium Level 9.0 mg/dL Total Bilirubin 0.4 mg/dL Aspartate Amino Transf (AST/SGOT) 28 U/L Alanine Aminotransferase (ALT/SGPT) 26 U/L Alkaline Phosphatase 70 U/L Total Protein 7.7 g/dL Albumin 2.9 g/dL Albumin/Globulin Ratio 0.6 SARS-CoV-2 Antigen (Rapid) Negative PE: GEN: NAD LUNGS: CTAB HEART: RRR ABD: less RLQ discomfort this morning NEURO/PSYCH: A & O 3, flat A/P: RLQ pain, weight loss Normocytic anemia Abnormal CT - 8 cm mass involving the cecum without visualization of the appendix, suspected liver cysts Rapid COVID neg -- Surgery opinion pending. ?MRI today Check iron profile. Justicifation of Admission Dx: Justifications for Admission: Justification of Admission Dx: Yes OSVALDO WATERS Feb 19, 2020 10:25
[2020-02-19] MEDS: IV DEXTROSE 5% - 0.9 % NACL 1,000 ML IV SCH ×2 (10:35→23:55)
[2020-02-19 10:46] VITALS: BP 128/67
--- NOTE | 2020-02-19 11:02 | HP ---
ADMIT DATE: 02/18/2020 LOCATION: 534. REASON FOR ADMISSION TO THE HOSPITAL: Right lower abdominal pain for a couple of weeks. There is a mass in the cecum, which is close to 8 cm. HISTORY OF PRESENT ILLNESS: The patient is a 79-year-old male patient, known to me, was seen last week for complaints of abdominal pain in the right lower quadrant, on and off for 2-3 weeks and then the patient had a CT scan of the abdomen and pelvis, which shows an 8 cm cecal mass, close to the cecum. The patient had last colonoscopy 5 years ago and the patient also was slightly anemic, hemoglobin 9.5. There are questionable small lesions in the liver. The patient was admitted to the hospital for further evaluation and treatment. PAST MEDICAL HISTORY: Hypertension, arthritis and gout. PAST SURGICAL HISTORY: Vasectomy, inguinal hernia repair, umbilical hernia repair. FAMILY HISTORY: Unremarkable. SOCIAL HISTORY: He smokes less than 1 pack per day, drinks for 3-4 beers daily, occasional marijuana. PREVIOUS GI: He had a colonoscopy 5 years ago. REVIEW OF SYMPTOMS: Complains of pain in the right lower quadrant. No nausea, no vomiting, no blood in the stool. Had lost 20 pounds in last 1 year. Rest of the 14-system was reviewed and negative. PHYSICAL EXAMINATION: GENERAL: The patient is pleasant, not in any distress. VITAL SIGNS: Temperature 98, pulse 90, respirations 16, blood pressure 125/53 and 99 on room air. HEENT: Head is atraumatic. Pupils are equal. Oral cavity: No congestion. NECK: Supple. Thyroid not enlarged. JVD not elevated. CHEST: Symmetrical. CARDIOVASCULAR: S1, S2. LUNGS: Clear to auscultation. ABDOMEN: Soft, slight tender to deep palpation of the right lower quadrant. No rebound, no masses palpable. EXTERNAL GENITALIA: No Bhatt. RECTAL: Deferred. EXTREMITIES: No calf tenderness, no edema. Pulses 1+. NEUROLOGIC: Moving all extremities. No focal deficits noted. LABORATORY DATA: Shows a white count of 5, hemoglobin 9.7, platelets 581. INR 1.1. Electrolytes show sodium 135, potassium 5.1, chloride 99, bicarbonate 26, BUN 18, creatinine 1.3, glucose 85. LFTs were normal. Rapid COVID test negative. The patient had a CT chest on 12/23, minimal emphysema, 10 mm pleural-based ground-glass opacity, left upper lobe, possible scarring, small hepatic cysts. The patient had a CT of the abdomen and pelvis on 02/10, it shows a large 8 cm mass involving the cecum. It is complex, has a low density collection, surrounded by inflammation and some low density lesions in the liver. FINAL IMPRESSION: 1. Right lower quadrant pain. 2. 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 3. Small lesions in the liver, not sure of the etiology. 4. A 10 mm left lung nodule. 5. Hypertension. 6. Gout. PLAN: At this time, the patient is admitted to the hospital. GI is consulted and Surgery was consulted and probably, we will get an MRI of the abdomen to rule out any liver metastasis at this point and make sure the patient does well in the next couple of days. YANI CORBETT MD DR: MAYELIN/marya JOB#: [id number] / [id number]
[2020-02-19] MEDS ORDERED: GADOTERATE 7.5 MMOL/15ML VIAL. IVP ONE (13:15)
[2020-02-19 15:00] VITALS: BP 132/70
--- NOTE | 2020-02-19 15:42 | RAD ---
EXAM: MRI ABDOMEN WITH AND WITHOUT CONTRAST. HISTORY: Cecal mass, liver lesions. TECHNIQUE: MRI of the abdomen was performed before and after the intravenous administration of gadolinium contrast. COMPARISON: CT 02/11/2020. FINDINGS: Liver: There is no significant steatosis. Multiple nonenhancing T2 hyperintense hepatic lesions are consistent with benign cysts. There are no suspicious hepatic lesions. Biliary tree: The gallbladder is unremarkable. The common duct is not dilated. There are no suspicious pancreatic parenchymal lesions. The pancreatic duct is not dilated. Other findings: A mass along the appendix and cecum is incompletely included at the inferior margin of the [id number]-ef-jadf. It refer to prior CT. There is no evidence of small bowel obstruction. Bilateral benign renal cysts measure up to 9 mm. The adrenal glands and spleen are unremarkable. IMPRESSION: 1. No suspicious hepatic lesions. 2. Cecal/appendiceal mass again noted. Endoscopy is recommended for tissue diagnosis if this is not already known. Electronically signed by: Edwin Forrester MD (02/19/2020 3:40 PM) [id number]
--- NOTE | 2020-02-19 16:40 | NUR ---
SW following. Reviewed chart and discussed with RN. Pt from home. Pt NPO and on IV pain medications. Pt admitted r/t a cecal mass. Pt on room air. Rehab screen on this pt. RN stated no PT/OT needs as pt independent and walking. No anticipated SW needs at discharge. SW will follow as needed.
--- NOTE | 2020-02-19 16:41 | RAD ---
EXAM: CHEST PA LATERAL INDICATION: Reason: preop eval / Spl. Instructions: / History: . TECHNIQUE: PA and lateral views COMPARISON: 12/23/2019 chest x-ray, noncontrast chest CT 12/24/2019. FINDINGS: The heart size is normal. The great vessels appear unremarkable. There is no hilar or mediastinal mass. Lungs show no focal infiltrates.. There is no pleural effusion or pneumothorax. There are no significant osseous abnormalities. IMPRESSION: No active cardiopulmonary disease. Electronically signed by: Emery Quinn MD (02/19/2020 4:38 PM) [facility] – [place]
--- NOTE | 2020-02-19 16:56 | PDOC2 ---
CONSULT Date of Consult Date of Consult DATE: 02/19/20 TIME: 16:49 Reason for Consult Reason for Consult: Cecal mass Referring Physician Referring Physician: Linden Identification/Chief Complaint Chief Complaint Righ lower abd pain Source Source: Chart review, Patient History of Present Illness Reason for Visit: 79 yo male admitted to the hospital with RLQ, currently denies pain, no N/V passing flatus Past Medical History Cardiovascular: HTN Rheumatologic: Gout Renal/: Chronic renal insuff Past Surgical History Past Surgical History: No pertinent history Family History Family History: Hypertension Social History <1 pack per day ALCOHOL: other (4 beers and a few shots - not every day) Drugs: Marijuana Lives: Alone Current Medications Current Medications Current Medications Allopurinol (Zyloprim) 100 mg DAILY PO Last administered on 02/19/20at 08:14; Start 02/19/20 at 09:00 Lisinopril (Prinivil) 10 mg DAILY PO Last administered on 02/19/20at 08:15; Start 02/19/20 at 09:00 Diphenhydramine HCl (Benadryl) 25 mg PRN QHS PRN PO ITCHING Last administered on 02/18/20at 22:44; Start 02/18/20 at 21:15 Dextrose/Sodium Chloride 1,000 ml @ 75 mls/hr [id number] IV ; Start 02/18/20 at 21:15 Ondansetron HCl (Zofran) 4 mg PRN Q6HRS PRN IV NAUSEA/VOMITING; Start 02/20/20 at 07:00; Stop 02/20/20 at 20:00 Fentanyl Citrate (Fentanyl 2ml Vial) 25 mcg PRN Q5MIN PRN IV MILD PAIN 1-3; Start 02/20/20 at 07:00; Stop 02/20/20 at 20:00 Fentanyl Citrate (Fentanyl 2ml Vial) 50 mcg PRN Q5MIN PRN IV MODERATE TO SEVERE PAIN; Start 02/20/20 at 07:00; Stop 02/20/20 at 20:00 Morphine Sulfate (Morphine Sulfate) 1 mg PRN Q10MIN PRN IV SEVERE PAIN 7-10; Start 02/20/20 at 07:00; Stop 02/20/20 at 20:00 Ringer's Solution 1,000 ml @ 30 mls/hr Q24H IV ; Start 02/20/20 at 07:00; Stop 02/20/20 at 18:59 Lidocaine HCl (Xylocaine-Mpf 1% 2ml Vial) 2 ml PRN 1X PRN ID PRIOR TO IV START; Start 02/20/20 at 07:00; Stop 02/20/20 at 20:00 Hydromorphone HCl (Dilaudid) 0.5 mg PRN Q10MIN PRN IV SEV PAIN, Second choice; Start 02/20/20 at 07:00; Stop 02/20/20 at 20:00 Prochlorperazine Edisylate (Compazine) 5 mg PACU PRN PRN IV NAUSEA, MRX1; Start 02/20/20 at 07:00; Stop 02/20/20 at 20:00 Gadoterate Meglumine (Dotarem) 17.8 ml 1X ONCE IVP Last administered on 02/19/20at 13:15; Start 02/19/20 at 13:15; Stop 02/19/20 at 13:18; Status DC Active Scripts Active Voltaren (Diclofenac Sodium) 100 Gm Gel..gram. 1 Gm TP QID 30 Days apply to affected area(s) Ibuprofen 600 Mg Tablet 600 Mg PO PRN Q6HRS PRN take with food or milk Reported Allopurinol 100 Mg Tablet 1 Tab PO DAILY Lisinopril 20 Mg Tablet 10 Mg PO DAILY Allergies Allergies: Coded Allergies: No Known Drug Allergies (Unverified , 10/25/13) ROS Gastrointestinal: Yes Abdominal Pain Physical Exam General: Alert, Oriented X3, Cooperative, No acute distress HEENT: Atraumatic, EOMI Lungs: Clear to auscultation, Normal air movement Heart: Regular rate, No murmurs Abdomen: Normal bowel sounds, Soft, No tenderness Extremities: No edema Skin: No significant lesion Neuro: Normal speech Psych/Mental Status: Mental status NL Vitals VITALS Vital Signs Date Time Temp Pulse Resp B/P (MAP) Pulse Ox O2 Delivery O2 Flow Rate FiO2 02/19/20 15:00 97.8 74 18 132/70 (90) 98 Room Air 97.8 Labs Labs Laboratory Tests Test 02/18/20 17:40 02/18/20 18:30 White Blood Count 4.8 x10^3/uL (4.0-11.0) Red Blood Count 2.99 x10^6/uL (4.30-5.70) Hemoglobin 9.7 g/dL (13.0-17.5) Hematocrit 28.4 % (39.0-53.0) Mean Corpuscular Volume 95 fL (79-100) Mean Corpuscular Hemoglobin 32 pg (25-35) Mean Corpuscular Hemoglobin Concent 34 g/dL (31-37) Red Cell Distribution Width 14.2 % (11.5-14.5) Platelet Count 581 x10^3/uL (140-400) Neutrophils (%) (Auto) 65 % (31-73) Lymphocytes (%) (Auto) 20 % (24-48) Monocytes (%) (Auto) 10 % (0-9) Eosinophils (%) (Auto) 5 % (0-3) Basophils (%) (Auto) 1 % (0-3) Neutrophils # (Auto) 3.1 x10^3/uL (1.8-7.7) Lymphocytes # (Auto) 0.9 x10^3/uL (1.0-4.8) Monocytes # (Auto) 0.5 x10^3/uL (0.0-1.1) Eosinophils # (Auto) 0.2 x10^3/uL (0.0-0.7) Basophils # (Auto) 0.1 x10^3/uL (0.0-0.2) Prothrombin Time 13.5 SEC (11.7-14.0) Prothromb Time International Ratio 1.1 (0.8-1.1) Sodium Level 135 mmol/L (136-145) Potassium Level 5.1 mmol/L (3.5-5.1) Chloride Level 99 mmol/L (98-107) Carbon Dioxide Level 26 mmol/L (21-32) Anion Gap 10 (6-14) Blood Urea Nitrogen 18 mg/dL (8-26) Creatinine 1.3 mg/dL (0.7-1.3) Estimated GFR (Cockcroft-Gault) 64.6 BUN/Creatinine Ratio 14 (6-20) Glucose Level 85 mg/dL (70-99) Calcium Level 9.0 mg/dL (8.5-10.1) Iron Level 71 ug/dL (65-175) Total Iron Binding Capacity 237 ug/dL (250-450) Iron Saturation 30 % (15-34) Total Bilirubin 0.4 mg/dL (0.2-1.0) Aspartate Amino Transf (AST/SGOT) 28 U/L (15-37) Alanine Aminotransferase (ALT/SGPT) 26 U/L (16-63) Alkaline Phosphatase 70 U/L (46-116) Total Protein 7.7 g/dL (6.4-8.2) Albumin 2.9 g/dL (3.4-5.0) Albumin/Globulin Ratio 0.6 (1.0-1.7) SARS-CoV-2 Antigen (Rapid) Negative (NEGATIVE) Laboratory Tests Test 02/18/20 17:40 02/18/20 18:30 White Blood Count 4.8 x10^3/uL (4.0-11.0) Red Blood Count 2.99 x10^6/uL (4.30-5.70) Hemoglobin 9.7 g/dL (13.0-17.5) Hematocrit 28.4 % (39.0-53.0) Mean Corpuscular Volume 95 fL (79-100) Mean Corpuscular Hemoglobin 32 pg (25-35) Mean Corpuscular Hemoglobin Concent 34 g/dL (31-37) Red Cell Distribution Width 14.2 % (11.5-14.5) Platelet Count 581 x10^3/uL (140-400) Neutrophils (%) (Auto) 65 % (31-73) Lymphocytes (%) (Auto) 20 % (24-48) Monocytes (%) (Auto) 10 % (0-9) Eosinophils (%) (Auto) 5 % (0-3) Basophils (%) (Auto) 1 % (0-3) Neutrophils # (Auto) 3.1 x10^3/uL (1.8-7.7) Lymphocytes # (Auto) 0.9 x10^3/uL (1.0-4.8) Monocytes # (Auto) 0.5 x10^3/uL (0.0-1.1) Eosinophils # (Auto) 0.2 x10^3/uL (0.0-0.7) Basophils # (Auto) 0.1 x10^3/uL (0.0-0.2) Prothrombin Time 13.5 SEC (11.7-14.0) Prothromb Time International Ratio 1.1 (0.8-1.1) Sodium Level 135 mmol/L (136-145) Potassium Level 5.1 mmol/L (3.5-5.1) Chloride Level 99 mmol/L (98-107) Carbon Dioxide Level 26 mmol/L (21-32) Anion Gap 10 (6-14) Blood Urea Nitrogen 18 mg/dL (8-26) Creatinine 1.3 mg/dL (0.7-1.3) Estimated GFR (Cockcroft-Gault) 64.6 BUN/Creatinine Ratio 14 (6-20) Glucose Level 85 mg/dL (70-99) Calcium Level 9.0 mg/dL (8.5-10.1) Iron Level 71 ug/dL (65-175) Total Iron Binding Capacity 237 ug/dL (250-450) Iron Saturation 30 % (15-34) Total Bilirubin 0.4 mg/dL (0.2-1.0) Aspartate Amino Transf (AST/SGOT) 28 U/L (15-37) Alanine Aminotransferase (ALT/SGPT) 26 U/L (16-63) Alkaline Phosphatase 70 U/L (46-116) Total Protein 7.7 g/dL (6.4-8.2) Albumin 2.9 g/dL (3.4-5.0) Albumin/Globulin Ratio 0.6 (1.0-1.7) SARS-CoV-2 Antigen (Rapid) Negative (NEGATIVE) Images Images MRI showing cecal mass, no apparent metastatic disease Assessment/Plan Assessment/Plan Cecal mass, not obstructed would prefer colonscolpy with biopsies prior to resection. JULI GARCIA MD Feb 19, 2020 16:56
[2020-02-19 19:00] VITALS: BP_SYST 120; BP_SYST 134; BP_DIAS 46; BP_DIAS 76
[2020-02-19] MEDS: diphenhydrAMINE HCL 25 MG CAPSULE PO PRN (22:20)
[2020-02-19 23:00] VITALS: BP 123/74
[2020-02-20 03:00] VITALS: BP 129/71
[2020-02-20] MEDS ORDERED: LIDOCAINE 1% PF 2 ML VIAL. ID PRN (07:00)
[2020-02-20] MEDS ORDERED: ONDANSETRON PF 4 MG/2 ML VIAL. IV PRN (07:00)
[2020-02-20] MEDS ORDERED: MORPHINE SULFATE 2 MG/ML VIAL. IV PRN (07:00)
[2020-02-20] MEDS ORDERED: IV RINGERS,LACTATED 1000ML 1,000 ML IV SCH (07:00)
[2020-02-20] MEDS ORDERED: HYDROmorphone 2 MG/ML VIAL IV PRN (07:00)
[2020-02-20] MEDS ORDERED: fentaNYL PF VIAL 100 MCG/2 ML VIAL IV PRN ×2 (07:00)
[2020-02-20] MEDS ORDERED: PROCHLORPERAZINE 10 MG/2 ML VIAL. IV PRN (07:00)
[2020-02-20 07:15] VITALS: BP 125/69
--- NOTE | 2020-02-20 08:57 | PDOC ---
PROGRESS NOTES Date of Service: DATE: 02/20/20 TIME: 08:53 Subjective Subjective Pt upset that he did not get colonoscopy today Objective Objective Vital Signs Date Time Temp Pulse Resp B/P (MAP) Pulse Ox O2 Delivery O2 Flow Rate FiO2 02/20/20 07:15 98.0 87 14 125/69 (87) 97 Room Air 98.0 Intake and Output 02/20/20 07:00 Intake Total 300 ml Balance 300 ml Intake Oral 300 ml # Voids 1 Physical Exam Abdomen: Normal bowel sounds, Soft, No tenderness Heart: Regular rate, No murmurs Extremities: No edema General: Alert, Oriented X3, Cooperative, No acute distress HEENT: Atraumatic, EOMI Lungs: Clear to auscultation, Normal air movement MUSCULOSKELETAL: Osteoarthritic changes both hands Neuro: Normal speech Psych/Mental Status: Mental status NL Skin: No significant lesion Assessment Assessment FINAL IMPRESSION: 1. Right lower quadrant pain. 2. 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 3. Small lesions in the liver, not sure of the etiology. 4. A 10 mm left lung nodule. 5. Hypertension. 6. Gout. PLAN: MRI no liver mets Surgery recommend colonoscopy with biopsy. Hopefully can get colonoscopy tomorrow,colon prep today will talk to GI. At this time, the patient is admitted to the hospital. GI is consulted and Surgery was consulted and probably, we will get an MRI of the abdomen to rule out any liver metastasis at this point and make sure the patient does well in the next couple of days. Comment Review of Relevant I have reviewed the following items baljeet (where applicable) has been applied. Medications Current Medications Allopurinol (Zyloprim) 100 mg DAILY PO Last administered on 02/19/20at 08:14; Start 02/19/20 at 09:00 Fentanyl Citrate (Fentanyl 2ml Vial) 25 mcg PRN Q5MIN PRN IV MILD PAIN 1-3; Start 02/20/20 at 07:00; Stop 02/20/20 at 20:00 Fentanyl Citrate (Fentanyl 2ml Vial) 50 mcg PRN Q5MIN PRN IV MODERATE TO SEVERE PAIN; Start 02/20/20 at 07:00; Stop 02/20/20 at 20:00 Gadoterate Meglumine (Dotarem) 17.8 ml 1X ONCE IVP Last administered on 02/19/20at 13:15; Start 02/19/20 at 13:15; Stop 02/19/20 at 13:18; Status DC Hydromorphone HCl (Dilaudid) 0.5 mg PRN Q10MIN PRN IV SEV PAIN, Second choice; Start 02/20/20 at 07:00; Stop 02/20/20 at 20:00 Lidocaine HCl (Xylocaine-Mpf 1% 2ml Vial) 2 ml PRN 1X PRN ID PRIOR TO IV START; Start 02/20/20 at 07:00; Stop 02/20/20 at 20:00 Lisinopril (Prinivil) 10 mg DAILY PO Last administered on 02/19/20at 08:15; Start 02/19/20 at 09:00 Morphine Sulfate (Morphine Sulfate) 1 mg PRN Q10MIN PRN IV SEVERE PAIN 7-10; Start 02/20/20 at 07:00; Stop 02/20/20 at 20:00 Ondansetron HCl (Zofran) 4 mg PRN Q6HRS PRN IV NAUSEA/VOMITING; Start 02/20/20 at 07:00; Stop 02/20/20 at 20:00 Prochlorperazine Edisylate (Compazine) 5 mg PACU PRN PRN IV NAUSEA, MRX1; Start 02/20/20 at 07:00; Stop 02/20/20 at 20:00 Ringer's Solution 1,000 ml @ 30 mls/hr Q24H IV ; Start 02/20/20 at 07:00; Stop 02/20/20 at 18:59 Vitals/I & O Vital Sign - Last 24 Hours 02/19/20 02/19/20 02/19/20 02/19/20 10:46 15:00 19:00 20:00 Temp 97.8 97.8 97.6 97.8 97.8 97.6 Pulse 76 74 80 Resp 18 18 16 B/P (MAP) 128/67 (87) 132/70 (90) 134/76 (95) Pulse Ox 98 98 100 O2 Delivery Room Air Room Air Room Air 02/19/20 02/20/20 02/20/20 23:00 03:00 07:15 Temp 98.1 98.4 98.0 98.1 98.4 98.0 Pulse 69 82 87 Resp 16 16 14 B/P (MAP) 123/74 (90) 129/71 (90) 125/69 (87) Pulse Ox 100 100 97 O2 Delivery Room Air Intake and Output 02/19/20 02/19/20 02/20/20 15:00 23:00 07:00 Intake Total 300 ml Balance 300 ml Justicifation of Admission Dx: Justifications for Admission: Justification of Admission Dx: Yes YANI CORBETT MD Feb 20, 2020 08:57
--- NOTE | 2020-02-20 09:07 | PDOC ---
Date of Service: DATE: 02/20/20 TIME: 09:04 Subjective: Subjective: Upset for various reasons, says he should have already been prepped for colonoscopy. Not much pain today. Objective: Objective: Called by Dr. Cheatham at this time - just letting me know pt is upset that his colonoscopy is not being done today. Already d/w Dr. Serrano earlier - planning for colonoscopy tomorrow after prep. D/w Jessica - pt no showed to appt w/ Dr. Kaiser last week. Vital Signs: Vital Signs Date Time Temp Pulse Resp B/P (MAP) Pulse Ox O2 Delivery O2 Flow Rate FiO2 02/20/20 07:15 98.0 87 14 125/69 (87) 97 Room Air 98.0 Imaging: Abd MRI 02/18 IMPRESSION: 1. No suspicious hepatic lesions. 2. Cecal/appendiceal mass again noted. Endoscopy is recommended for tissue diagnosis if this is not already known. PE: GEN: NAD LUNGS: room air, clear HEART: RRR ABD: non-distended NEURO/PSYCH: A & O 3, upset A/P: RLQ pain, weight loss Normocytic anemia - iron ok Cecal/appendiceal mass COVID negative -- I listened to his concerns. Will schedule colonoscopy tomorrow after prep today. Justicifation of Admission Dx: Justifications for Admission: Justification of Admission Dx: Yes OSVALDO WATERS Feb 20, 2020 09:07
[2020-02-20] MEDS ORDERED: MAGNESIUM CITRATE 296 ML SOLUTION. PO ONE ×2 (09:15→10:00)
[2020-02-20] MEDS ORDERED: BISACODYL 5 MG TABLET.DR. PO ONE (09:15)
--- NOTE | 2020-02-20 09:42 | PDOC ---
NOMAN ADDISON [employer] 02/20/20 0942: SURGICAL PROGRESS NOTE DATE: 02/20/20 TIME: 09:40 Subjective upset nothing being done today does not understand why prep not started last night Vital Signs Vital Signs Date Time Temp Pulse Resp B/P (MAP) Pulse Ox O2 Delivery O2 Flow Rate FiO2 02/20/20 07:15 98.0 87 14 125/69 (87) 97 Room Air 98.0 I&O Intake and Output 02/20/20 07:00 Intake Total 300 ml Balance 300 ml Intake Oral 300 ml # Voids 1 General: Alert, Oriented X3, Cooperative Abdomen: Soft, No tenderness Labs Laboratory Tests Test 02/18/20 17:40 02/18/20 18:15 02/18/20 18:30 White Blood Count 4.8 x10^3/uL (4.0-11.0) Red Blood Count 2.99 x10^6/uL (4.30-5.70) Hemoglobin 9.7 g/dL (13.0-17.5) Hematocrit 28.4 % (39.0-53.0) Mean Corpuscular Volume 95 fL (79-100) Mean Corpuscular Hemoglobin 32 pg (25-35) Mean Corpuscular Hemoglobin Concent 34 g/dL (31-37) Red Cell Distribution Width 14.2 % (11.5-14.5) Platelet Count 581 x10^3/uL (140-400) Neutrophils (%) (Auto) 65 % (31-73) Lymphocytes (%) (Auto) 20 % (24-48) Monocytes (%) (Auto) 10 % (0-9) Eosinophils (%) (Auto) 5 % (0-3) Basophils (%) (Auto) 1 % (0-3) Neutrophils # (Auto) 3.1 x10^3/uL (1.8-7.7) Lymphocytes # (Auto) 0.9 x10^3/uL (1.0-4.8) Monocytes # (Auto) 0.5 x10^3/uL (0.0-1.1) Eosinophils # (Auto) 0.2 x10^3/uL (0.0-0.7) Basophils # (Auto) 0.1 x10^3/uL (0.0-0.2) Prothrombin Time 13.5 SEC (11.7-14.0) Prothromb Time International Ratio 1.1 (0.8-1.1) Sodium Level 135 mmol/L (136-145) Potassium Level 5.1 mmol/L (3.5-5.1) Chloride Level 99 mmol/L (98-107) Carbon Dioxide Level 26 mmol/L (21-32) Anion Gap 10 (6-14) Blood Urea Nitrogen 18 mg/dL (8-26) Creatinine 1.3 mg/dL (0.7-1.3) Estimated GFR (Cockcroft-Gault) 64.6 BUN/Creatinine Ratio 14 (6-20) Glucose Level 85 mg/dL (70-99) Calcium Level 9.0 mg/dL (8.5-10.1) Iron Level 71 ug/dL (65-175) Total Iron Binding Capacity 237 ug/dL (250-450) Iron Saturation 30 % (15-34) Total Bilirubin 0.4 mg/dL (0.2-1.0) Aspartate Amino Transf (AST/SGOT) 28 U/L (15-37) Alanine Aminotransferase (ALT/SGPT) 26 U/L (16-63) Alkaline Phosphatase 70 U/L (46-116) Total Protein 7.7 g/dL (6.4-8.2) Albumin 2.9 g/dL (3.4-5.0) Albumin/Globulin Ratio 0.6 (1.0-1.7) Coronavirus (PCR) Not detected (Not Detected) SARS-CoV-2 Antigen (Rapid) Negative (NEGATIVE) Assessment/Plan colonoscopy tomorrow Justicifation of Admission Dx: Justifications for Admission: Justification of Admission Dx: Yes JULI GARCIA MD 02/20/20 1235: SURGICAL PROGRESS NOTE Assessment/Plan No acute changes plan for colonoscopy awaiting results. Agree with [place] assessment plan NOMAN ADDISON APRN Feb 20, 2020 09:42 JULI GARCIA MD Feb 20, 2020 12:35
[2020-02-20] MEDS: ALLOPURINOL 100 MG TABLET. PO SCH (09:53)
[2020-02-20] MEDS: LISINOPRIL 10 MG TABLET PO SCH (09:53)
[2020-02-20] MEDS ORDERED: POLYETHYLENE GLYCOL 3350 BTL 238 GM POWDER PO ONE (10:30)
[2020-02-20 11:15] VITALS: BP 141/67
[2020-02-20] MEDS ORDERED: fentaNYL PF VIAL 100 MCG/2 ML VIAL ONE (11:32)
[2020-02-20] MEDS ORDERED: PROPOFOL 10 MG/ML (20ML) VIAL. IV ONE (11:32)
[2020-02-20] MEDS ORDERED: LIDOCAINE 2% PF 5 ML VIAL. ONE (11:32)
[2020-02-20] MEDS: IV DEXTROSE 5% - 0.9 % NACL 1,000 ML IV SCH (13:15)
[2020-02-20 15:15] VITALS: BP 121/57
--- NOTE | 2020-02-20 17:32 | NUR ---
SW following. Reviewed chart and discussed with RN. Pt from home. No anticipated SW needs at discharge. Pt not ready for discharge today. SW to follow as needed.
[2020-02-20 19:00] VITALS: BP 120/62
[2020-02-20] MEDS: diphenhydrAMINE HCL 25 MG CAPSULE PO PRN (22:02)
[2020-02-20 23:00] VITALS: BP 111/65
[2020-02-21] VITALS (13 sets, daily range): BP systolic 106–145; BP diastolic 56–80
[2020-02-21] MEDS: IV DEXTROSE 5% - 0.9 % NACL 1,000 ML IV SCH ×2 (02:35→07:29)
[2020-02-21] MEDS ORDERED: IV RINGERS,LACTATED 1000ML 1,000 ML IV SCH (07:00)
--- NOTE | 2020-02-21 08:40 | PDOC ---
PROGRESS NOTES Date of Service: DATE: 02/21/20 TIME: 08:37 Subjective Subjective going for colonoscopy with biopsy today Objective Objective Vital Signs Date Time Temp Pulse Resp B/P (MAP) Pulse Ox O2 Delivery O2 Flow Rate FiO2 02/21/20 07:00 98.3 104 20 133/63 (86) 98 Room Air 98.3 Intake and Output 02/21/20 07:00 Output Total 0 ml Balance 0 ml Output Urine Total 0 ml # Voids 2 # Bowel Movements 2 Physical Exam Abdomen: Soft, No tenderness Heart: Regular rate, No murmurs Extremities: No edema General: Alert, Oriented X3, Cooperative HEENT: Atraumatic, EOMI Lungs: Clear to auscultation, Normal air movement MUSCULOSKELETAL: Osteoarthritic changes both hands Neuro: Normal speech Psych/Mental Status: Mental status NL Skin: No significant lesion Assessment Assessment FINAL IMPRESSION: 1. Right lower quadrant pain. 2. 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 3. Small lesions in the liver, not sure of the etiology. 4. A 10 mm left lung nodule. 5. Hypertension. 6. Gout. PLAN: colonoscopy with biopsy today MRI- no liver mets Surgery recommend colonoscopy with biopsy. can d/c home later today and come electively for colon surgery next week Comment Review of Relevant I have reviewed the following items baljeet (where applicable) has been applied. Medications Current Medications Bisacodyl (Dulcolax Tab) 10 mg 1X ONCE PO Last administered on 02/20/20at 09:52; Start 02/20/20 at 09:15; Stop 02/20/20 at 09:16; Status DC Fentanyl Citrate (Fentanyl 2ml Vial) 100 mcg STK-MED ONCE .ROUTE ; Start 02/20/20 at 11:32; Stop 02/20/20 at 11:33; Status Cancel Lidocaine HCl (Lidocaine Pf 2% Vial) 5 ml STK-MED ONCE .ROUTE ; Start 02/20/20 at 11:32; Stop 02/20/20 at 11:32; Status DC Magnesium Citrate (Citroma) 296 ml 1X ONCE PO ; Start 02/20/20 at 09:15; Stop 02/20/20 at 09:16; Status DC Magnesium Citrate (Citroma) 296 ml 1X ONCE PO Last administered on 02/20/20at 10:05; Start 02/20/20 at 10:00; Stop 02/20/20 at 10:01; Status DC Polyethylene Glycol (miraLAX Powder BULK BOTTLE) 238 gm 1X ONCE PO Last administered on 02/20/20at 10:02; Start 02/20/20 at 10:30; Stop 02/20/20 at 10:31; Status DC Propofol (Diprivan) 200 mg STK-MED ONCE IV ; Start 02/20/20 at 11:32; Stop 02/20/20 at 11:32; Status DC Ringer's Solution 1,000 ml @ 30 mls/hr Q24H IV ; Start 02/21/20 at 07:00; Stop 02/21/20 at 18:59 Vitals/I & O Vital Sign - Last 24 Hours 02/20/20 02/20/20 02/20/20 02/20/20 09:53 11:15 15:15 19:00 Temp 97.9 98.2 98.5 97.9 98.2 98.5 Pulse 87 84 81 80 Resp 16 16 20 B/P (MAP) 125/69 141/67 (91) 121/57 (78) 120/62 (81) Pulse Ox 99 97 94 O2 Delivery Room Air Room Air Room Air 02/20/20 02/20/20 02/21/20 02/21/20 20:00 23:00 03:00 07:00 Temp 98.2 98.4 98.3 98.2 98.4 98.3 Pulse 84 86 104 Resp 18 20 20 B/P (MAP) 111/65 (80) 106/56 (73) 133/63 (86) Pulse Ox 100 98 98 O2 Delivery Room Air Room Air Room Air Room Air Intake and Output 02/20/20 02/20/20 02/21/20 15:00 23:00 07:00 Output Total 0 ml Balance 0 ml Justicifation of Admission Dx: Justifications for Admission: Justification of Admission Dx: Yes Nutrition Consultation Dietary Evaluation: Recommendations by RD: Dietary education by RD, Increase Calorie Intake, Protein supplementation Comments: REC Ensure clear (orellana) w/dinner while on clear liquids REC advance diet as able/tolerated s/p procedure, goal diet cardiac/w/textures per pt, may need softer foods due to denture problems REC Ensure (chocolate) w/lunch once diet advanced past clears Expected Outcomes/Goals: diet advancement Interpretation of weight loss: >10% in 6 months Malnutrition Findings: Food and Nutrition Intake (Mod: <75% est energy req 7days Body Fat Depletion (Non Severe: Mild Depletion Weight Status: Obese YANI CORBETT MD Feb 21, 2020 08:40
[2020-02-21] MEDS: ALLOPURINOL 100 MG TABLET. PO SCH (09:00)
[2020-02-21] MEDS: LISINOPRIL 10 MG TABLET PO SCH (09:00)
--- NOTE | 2020-02-21 10:53 | PDOC ---
SURGICAL PROGRESS NOTE DATE: 02/21/20 TIME: 10:52 Subjective Patient without complaints Vital Signs Vital Signs Date Time Temp Pulse Resp B/P (MAP) Pulse Ox O2 Delivery O2 Flow Rate FiO2 02/21/20 08:00 Room Air 02/21/20 07:00 98.3 104 20 133/63 (86) 98 98.3 I&O Intake and Output 02/21/20 07:00 Output Total 0 ml Balance 0 ml Output Urine Total 0 ml # Voids 2 # Bowel Movements 2 General: Alert, Oriented X3, Cooperative, No acute distress Abdomen: Normal bowel sounds, Soft, No tenderness Assessment/Plan Cecal mass going for colonoscopy today we will follow-up on results Justicifation of Admission Dx: Justifications for Admission: Justification of Admission Dx: Yes JULI GARCIA MD Feb 21, 2020 10:53
[2020-02-21] MEDS ORDERED: PROPOFOL 10 MG/ML (20ML) VIAL. IV ONE (12:16)
[2020-02-21] MEDS ORDERED: LIDOCAINE 2% PF 5 ML VIAL. ONE (12:16)
--- NOTE | 2020-02-21 13:07 | PDOC4 ---
PROCEDURE Procedure Colonoscopy with biopsies/tattoo Indication: abnormal CT/right colon mass Meds: per anesthesia Findings: DESIREE normal. -'Scope advanced to ~hepatic flexure. Fair prep. At this point large mass nearly filling the lumen; we could not pass. Looks malignant. Biopsies taken and tattooed maybe 2 cm distally. Scattered diverticula to this level. No other lesions. Mucosa normal. Internal hemorrhoids on retroflex. Macy. well. IMP: Malignant-appearing mass. Diverticulosis. Internal hemorrhoids. REC: Will leave on clears. Await path. OR before path OK with me as little doubt needs surgery regardless. SHYAM PONCE MD Feb 21, 2020 13:07
--- NOTE | 2020-02-21 14:00 | NUR ---
Patient has returned to unit to room. Alert and oriented. Patient denies pain at this time.
--- NOTE | 2020-02-21 16:56 | NUR ---
SW following. Reviewed chart and discussed with RN. Pt will likely discharge home self-care this weekend. No further SW needs at this time.
[2020-02-21] MEDS ORDERED: IOHEXOL 300 MG/ML 100ML VIAL. IV ONE (22:00)
[2020-02-21] MEDS ORDERED: CONTRAST GIVEN. MC PRN (22:00)
[2020-02-21] MEDS: ZOLPIDEM 5 MG TABLET. PO PRN (22:50)
--- NOTE | 2020-02-21 23:13 | RAD ---
CT scan of the chest with contrast 02/21/2020 CLINICAL HISTORY: Colon cancer. TECHNIQUE: After the intravenous administration of 75 cc of Omnipaque 300, contiguous, 5 mm axial sections were obtained through the chest and upper abdomen. One or more of the following individualized dose reduction techniques were utilized for this study: 1. Automated exposure control. 2. Adjustment of the mA and/or kV according to patient size. 3. Use of iterative reconstruction technique. FINDINGS: Comparison study is dated 12/24/2019. Atherosclerotic calcification of the thoracic aorta and its branches is seen. The thoracic aorta is mildly tortuous but tapers normally. The heart is normal in size. Small calcified right hilar and mediastinal lymph nodes are seen. No hilar, mediastinal or axillary lymphadenopathy is noted. Mild emphysematous changes are seen involving both lungs. Minimal dependent subsegmental atelectasis is seen involving both lower lobes. No area of consolidation is seen. Small calcified granulomas are seen involving the right lower lobe. No suspicious noncalcified pulmonary nodule or mass is seen. No pleural effusion or pneumothorax is noted. Images through the upper abdomen again demonstrate multiple low-attenuation lesions scattered throughout both lobes of the liver consistent with hepatic cysts. These measure 1 cm to 4 cm in size. Degenerative changes are seen throughout the thoracic spine. IMPRESSION: No acute abnormality is seen. There is no CT evidence of metastatic disease involving the chest. Electronically signed by: Donald Lyle MD (02/21/2020 11:10 PM) [place] [id number]
[2020-02-22] VITALS (13 sets, daily range): BP systolic 120–152; BP diastolic 57–77
[2020-02-22] MEDS ORDERED: LIDOCAINE 1% PF 2 ML VIAL. ID PRN (07:00)
[2020-02-22] MEDS ORDERED: fentaNYL PF VIAL 100 MCG/2 ML VIAL IV PRN ×2 (07:00)
[2020-02-22] MEDS ORDERED: IV RINGERS,LACTATED 1000ML 1,000 ML IV SCH (07:00)
[2020-02-22] MEDS ORDERED: ONDANSETRON PF 4 MG/2 ML VIAL. IV PRN (07:00)
[2020-02-22] MEDS ORDERED: PROCHLORPERAZINE 10 MG/2 ML VIAL. IV PRN (07:00)
[2020-02-22] MEDS ORDERED: MORPHINE SULFATE 2 MG/ML VIAL. IV PRN (07:00)
[2020-02-22] MEDS ORDERED: HYDROmorphone 2 MG/ML VIAL IV PRN (07:00)
[2020-02-22] MEDS ORDERED: BUPIVACAINE-EPI 0.5%-1:200000 MPF 30 ML VIAL. ONE (07:11)
[2020-02-22] MEDS ORDERED: ROCURONIUM 50 MG/5 ML VIAL. ONE ×2 (07:53→09:13)
[2020-02-22] MEDS ORDERED: PROPOFOL 10 MG/ML (20ML) VIAL. IV ONE ×2 (07:54→10:45)
[2020-02-22] MEDS ORDERED: LIDOCAINE 2% PF 5 ML VIAL. ONE ×2 (07:54→10:34)
[2020-02-22] MEDS ORDERED: PHENYLEPHRINE in 0.9% NACL PF 1 MG/10 ML SYRINGE. IV ONE (07:54)
[2020-02-22] MEDS ORDERED: DESFLURANE > 120 MINUTES IH ONE (07:54)
[2020-02-22] MEDS ORDERED: fentaNYL PF VIAL 250 MCG/5 ML VIAL ONE (07:54)
[2020-02-22] MEDS ORDERED: cefOXitin SODIUM IV Push 2 GM VIAL. IVP SCH (08:00)
[2020-02-22] MEDS ORDERED: cefOXitin SODIUM IV Push 2 GM VIAL. IVP ONE (08:18)
--- NOTE | 2020-02-22 08:30 | PDOC ---
SURGICAL PROGRESS NOTE DATE: 02/22/20 TIME: 08:27 Subjective PreOp Note 79 yo M with one month history or RLQ pain. CT and MRI with large mass of cecum. No obvious liver mets. CT chest wnl CEA pending. Colonoscopy demonstrates obstructing mass in right colon. Biopsy pending. Previous colonoscopy 2014 wnl. TO OR for laparoscopic versus open right colon (favor open, given large size and obstruction). Proceeding urgently given obstruction. R/R/B/A d/w pt and pt's supportive and son. Risks, including, but not limited to: bleeding, infection, damage to surrounding structures, risk of anesthesia, risk of leak. They appear to understand, their questions are answered and they elect to proceed. Vital Signs Vital Signs Date Time Temp Pulse Resp B/P (MAP) Pulse Ox O2 Delivery O2 Flow Rate FiO2 02/22/20 07:57 98.5 99 16 131/70 (90) 98 98.5 02/21/20 22:52 Room Air 02/21/20 13:07 2 I&O Intake and Output 02/22/20 07:00 Intake Total 220 ml Balance 220 ml Intake Oral 220 ml # Voids 2 Justicifation of Admission Dx: Justifications for Admission: Justification of Admission Dx: Yes IRINA CEDILLO MD Feb 22, 2020 08:30
[2020-02-22] MEDS ORDERED: FAMOTIDINE 20 MG/2 ML VIAL ONE (08:47)
[2020-02-22] MEDS ORDERED: ONDANSETRON PF 4 MG/2 ML VIAL. ONE (08:47)
[2020-02-22] MEDS ORDERED: DEXAMETHASONE SOD PHOS 4 MG/ML VIAL ONE (08:47)
[2020-02-22] MEDS: ALLOPURINOL 100 MG TABLET. PO SCH (09:00)
[2020-02-22] MEDS: LISINOPRIL 10 MG TABLET PO SCH (09:00)
[2020-02-22] MEDS ORDERED: KETAMINE HCL IN NACL, ISO-OSM 50 MG/5 ML SYRINGE ONE (09:51)
[2020-02-22] MEDS ORDERED: METHYLENE BLUE 0.5% 10ml AMPULE. ONE (09:57)
[2020-02-22] MEDS ORDERED: GLYCOPYRROLATE 1 MG/5 ML VIAL. ONE (10:18)
[2020-02-22] MEDS ORDERED: NEOSTIGMINE METHYLSULFATE 5 MG/5 ML SYRINGE. ONE (10:18)
[2020-02-22] MEDS ORDERED: ONDANSETRON PF 4 MG/2 ML VIAL. IVP PRN (10:45)
[2020-02-22] MEDS ORDERED: 0.9 % SODIUM CHLORIDE 10 ML DISP.SYRIN. IV PRN (10:45)
[2020-02-22] MEDS ORDERED: NALOXONE 0.4 MG/ML VIAL. IV PRN (10:45)
[2020-02-22] MEDS ORDERED: MORPHINE SULFATE 30 ML IV PRN (11:00)
--- NOTE | 2020-02-22 11:05 | PDOC4 ---
OPERATIVE NOTE Date: Date: Feb 22, 2020 Pre-Op Diagnosis: Colon obstruction, suspect colon cancer Post-Op Diagnosis: same, favor appendiceal cancer Procedure Performed: laparoscopic converted to open right colon resection, removal of umbilical mesh Surgeon: Maximus Cedillo Anesthesia Type: GETA plus local Blood Loss: 100 Specimans Obtained: right colon, umbilical mesh, small bowel mesentery mass Findings: multiple liver cysts, normal gallbladder, large mass in right colon with perforation of appendix, normal small bowel, small bowel mesentery nodule, omental nodule (favor benign), favor mass appears to come from appendiceal orifice Complications: none Operative Note: After obtaining informed consent, patient was taken to OR, induced under GETA and prepped in the usual fashion. 5 mm ports placed supraumbilical and epigastric, under laparoscopic guidance. Abdominal cavity was explored and noted as above. Given extensive inflammation in RLQ and large mass, open procedure indicated. Midline incision was made with cautery. Omental adhesion to umbilical mass, which appears to be mesh. This was excised, given risk for infection and possible metastatic disease and sent to pathology for evaluation. Liver was explored and no obvious metastatic disease and multiple large cysts. Stomach was normal. Small bowel normal throughout. Small small bowel mesentery mass was excised and sent to pathology. Omental mass was excised and sent to pathology. No peritoneal disease noted. Gallbladder was normal. White line of toldt divided on right and right colon fully mobilized. This was difficult secondary to extensive inflammation in RLQ. Mobilization of appendix demonstrated abscess (cultures obtained). Appendix was indurated and appeared to have ruptured. Right colon fully mobilized. Duodenum was normal and maintained without injury. Right ureter identified by Kiah's sign (spasm with palpation) and traced and found to be uninjured and uninvolved. Rough tissue was noted lateral to area of appendiceal perforation. This was debrided and radioopague clips left in placed for possible further treatment. Small bowel divided proximal to ileocecal valve using SHILPA. Transverse colon divided distal to area of concern with SHILPA. Mesentery taken with ligasure down to origin of vessels. Specimen was opened at end of procedure as pathology not readily available, off the field, demonstrating suspected malignant mass coming from appendiceal orifice. Side to side stapled anastomosis created with 75 SHILPA. Sealed with TA 60. Mesentery defect repaired with 3 0 chromic. Anastomosis noted to be patent, under no tension, completely viable and without evidence of leakage. Copious irrigation. No evidence of bleeding or other pathology at time of closure. Fascia repaired with 0 looped PDS. Skin repaired with 3 0 vicryl and 4 0 monocryl. Art left in wound and secured with 3 0 nylon. Dressing placed. Patient tolerated procedure well and sent to PACU in stable condition. All counts correct. Wound class is 4, dirty. IRINA CEDILLO MD Feb 22, 2020 11:05
[2020-02-22] MEDS: IV NORMAL SALINE 1000ML BAG 1,000 ML IV SCH (11:46)
--- NOTE | 2020-02-22 11:49 | PDOC ---
PROGRESS NOTES Date of Service: DATE: 02/22/20 TIME: 11:47 Subjective Subjective pt went to OR Objective Objective Vital Signs Date Time Temp Pulse Resp B/P (MAP) Pulse Ox O2 Delivery O2 Flow Rate FiO2 02/22/20 11:24 18 97 Room Air 02/22/20 11:10 75 150/78 10 02/22/20 10:55 98.6 98.6 Intake and Output 02/22/20 07:00 Intake Total 220 ml Balance 220 ml Intake Oral 220 ml # Voids 2 Assessment Assessment FINAL IMPRESSION: 1. Right lower quadrant pain. 2. 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 3. Small lesions in the liver, not sure of the etiology. 4. A 10 mm left lung nodule. 5. Hypertension. 6. Gout. PLAN: Date: Feb 22, 2020 Pre-Op Diagnosis: Colon obstruction, suspect colon cancer Post-Op Diagnosis: same, favor appendiceal cancer Procedure Performed: laparoscopic converted to open right colon resection, removal of umbilical mesh Surgeon: Maximus Perez Ct chest -no mets MRI- no liver mets Comment Review of Relevant I have reviewed the following items baljeet (where applicable) has been applied. Medications Current Medications Bupivacaine HCl/ Epinephrine Bitart (Sensorcain-Epi 0.5%-1:034539 Mpf) 30 ml S TK-MED ONCE .ROUTE Last administered on 02/22/20at 08:50; Start 02/22/20 at 07:11; Stop 02/22/20 at 07:11; Status DC Cefoxitin Sodium (Mefoxin) 2 gm 1X PREOP IVP Last administered on 02/22/20at 09:08; Start 02/22/20 at 08:00; Stop 02/22/20 at 14:00 Desflurane (Suprane) 90 ml STK-MED ONCE IH ; Start 02/22/20 at 07:54; Stop 02/22/20 at 07:54; Status DC Dexamethasone Sodium Phosphate (Decadron) 4 mg STK-MED ONCE .ROUTE ; Start 02/22/20 at 08:47; Stop 02/22/20 at 08:47; Status DC Enoxaparin Sodium (Lovenox 40mg Syringe) 40 mg Q24H SQ ; Start 02/22/20 at 16:00 Famotidine (Pepcid Vial) 20 mg STK-MED ONCE .ROUTE ; Start 02/22/20 at 08:47; Stop 02/22/20 at 08:47; Status DC Fentanyl Citrate (Fentanyl 2ml Vial) 25 mcg PRN Q5MIN PRN IV MILD PAIN 1-3 Last administered on 02/22/20at 11:24; Start 02/22/20 at 07:00; Stop 02/22/20 at 15:00 Fentanyl Citrate (Fentanyl 2ml Vial) 50 mcg PRN Q5MIN PRN IV MODERATE TO SEVERE PAIN; Start 02/22/20 at 07:00; Stop 02/22/20 at 15:00 Fentanyl Citrate (Fentanyl 5ml Vial) 250 mcg STK-MED ONCE .ROUTE ; Start 02/22/20 at 07:54; Stop 02/22/20 at 07:54; Status DC Glycopyrrolate (Robinul) 1 mg STK-MED ONCE .ROUTE ; Start 02/22/20 at 10:18; Stop 02/22/20 at 10:19; Status DC Hydromorphone HCl (Dilaudid) 0.5 mg PRN Q10MIN PRN IV SEV PAIN, Second choice; Start 02/22/20 at 07:00; Stop 02/22/20 at 15:00 Info (CONTRAST GIVEN -- Rx MONITORING) 1 each PRN DAILY PRN MC SEE COMMENTS; Start 02/21/20 at 22:00; Stop 02/23/20 at 21:59 Iohexol (Omnipaque 300 Mg/ml) 75 ml 1X ONCE IV Last administered on 02/21/20at 22:02; Start 02/21/20 at 22:00; Stop 02/21/20 at 22:01; Status DC Ketamine HCl (Ketamine) 50 mg STK-MED ONCE .ROUTE ; Start 02/22/20 at 09:51; Stop 02/22/20 at 09:51; Status DC Lidocaine HCl (Lidocaine Pf 2% Vial) 5 ml STK-MED ONCE .ROUTE ; Start 02/21/20 at 12:16; Stop 02/21/20 at 12:17; Status DC Lidocaine HCl (Lidocaine Pf 2% Vial) 5 ml STK-MED ONCE .ROUTE ; Start 02/22/20 at 07:54; Stop 02/22/20 at 07:54; Status DC Lidocaine HCl (Lidocaine Pf 2% Vial) 5 ml STK-MED ONCE .ROUTE ; Start 02/22/20 at 10:34; Stop 02/22/20 at 10:34; Status DC Lidocaine HCl (Xylocaine-Mpf 1% 2ml Vial) 2 ml PRN 1X PRN ID PRIOR TO IV START; Start 02/22/20 at 07:00; Stop 02/22/20 at 15:00 Methylene Blue (Provayblue) 10 ml STK-MED ONCE .ROUTE ; Start 02/22/20 at 09:57; Stop 02/22/20 at 09:57; Status DC Morphine Sulfate 30 ml @ 0 mls/hr CONT PRN PRN IV PER PROTOCOL; Start 02/22/20 at 11:00 Morphine Sulfate (Morphine Sulfate) 1 mg PRN Q10MIN PRN IV SEVERE PAIN 7-10; Start 02/22/20 at 07:00; Stop 02/22/20 at 15:00 Naloxone HCl (Narcan) 0.4 mg PRN Q2MIN PRN IV SEE INSTRUCTIONS; Start 02/22/20 at 10:45 Neostigmine [place] (Neostigmine Methylsulfate) 5 mg STK-MED ONCE .ROUTE ; Start 02/22/20 at 10:18; Stop 02/22/20 at 10:19; Status DC Ondansetron HCl (Zofran) 4 mg PRN Q6HRS PRN IV NAUSEA/VOMITING; Start 02/22/20 at 07:00; Stop 02/22/20 at 15:00 Ondansetron HCl (Zofran) 4 mg PRN Q6HRS PRN IVP NAUESA, 1ST CHOICE; Start 02/22/20 at 10:45 Ondansetron HCl (Zofran) 4 mg STK-MED ONCE .ROUTE ; Start 02/22/20 at 08:47; Stop 02/22/20 at 08:47; Status DC Phenylephrine HCl (PHENYLEPHRINE in 0.9% NACL PF) 1 mg STK-MED ONCE IV ; Start 02/22/20 at 07:54; Stop 02/22/20 at 07:54; Status DC Piperacillin Sod/ Tazobactam Sod 3.375 gm/Sodium Chloride 50 ml @ 100 mls/hr Q6HRS IV ; Start 02/22/20 at 12:00 Prochlorperazine Edisylate (Compazine) 5 mg PACU PRN PRN IV NAUSEA, MRX1; Start 02/22/20 at 07:00; Stop 02/22/20 at 15:00 Propofol (Diprivan) 200 mg STK-MED ONCE IV ; Start 02/21/20 at 12:16; Stop 02/21/20 at 12:17; Status DC Propofol (Diprivan) 200 mg STK-MED ONCE IV ; Start 02/22/20 at 07:54; Stop 02/22/20 at 07:54; Status DC Propofol (Diprivan) 200 mg STK-MED ONCE IV ; Start 02/22/20 at 10:45; Stop 02/22/20 at 10:46; Status DC Ringer's Solution 1,000 ml @ 30 mls/hr Q24H IV ; Start 02/22/20 at 07:00; Stop 02/22/20 at 18:59 Ringer's Solution 1,000 ml @ 100 mls/hr Q10H IV ; Start 02/22/20 at 12:00 Rocuronium [place] (Zemuron) 50 mg STK-MED ONCE .ROUTE ; Start 02/22/20 at 07:53; Stop 02/22/20 at 07:54; Status DC Rocuronium [place] (Zemuron) 50 mg STK-MED ONCE .ROUTE ; Start 02/22/20 at 09:13; Stop 02/22/20 at 09:13; Status DC Sodium Chloride 1,000 ml @ 25 mls/hr Q24H IV ; Start 02/22/20 at 11:00 Sodium Chloride (Normal Saline Flush) 3 ml QSHIFT PRN IV AFTER MEDS AND BLOOD DRAWS; Start 02/22/20 at 10:45 Zolpidem Tartrate (Ambien) 5 mg PRN QHS PRN PO INSOMNIA Last administered on 02/21/20at 22:50; Start 02/21/20 at 16:00 Vitals/I & O Vital Sign - Last 24 Hours 02/21/20 02/21/20 02/21/20 02/21/20 12:02 12:04 13:07 13:21 Temp 97.7 97.2 97.7 97.2 Pulse 82 82 81 Resp 20 20 20 B/P (MAP) 95/49 113/58 Pulse Ox 99 99 100 O2 Delivery Room Air Nasal Cannula Room Air O2 Flow Rate 2 02/21/20 02/21/20 02/21/20 8/21/20 14:00 14:15 14:30 14:45 Pulse 79 73 71 69 B/P (MAP) 141/65 (90) 137/69 (91) 128/57 (80) 130/74 (92) 02/21/20 02/21/20 02/21/20 02/21/20 15:00 15:15 15:45 16:45 Temp 98.0 98.0 Pulse 78 80 83 77 Resp 18 B/P (MAP) 145/68 (93) 137/71 (93) 122/69 (86) 139/80 (99) Pulse Ox 100 O2 Delivery Room Air 02/21/20 02/21/20 02/21/20 02/22/20 19:00 20:00 22:52 03:00 Temp 99.5 98.8 99.8 99.5 98.8 99.8 Pulse 77 80 93 Resp 18 16 16 B/P (MAP) 128/64 (85) 108/75 (86) 120/57 (78) Pulse Ox 99 99 99 O2 Delivery Room Air Room Air 02/22/20 02/22/20 02/22/20 02/22/20 07:57 08:00 09:00 10:55 Temp 98.5 98.6 98.5 98.6 Pulse 99 75 69 Resp 16 16 B/P (MAP) 131/70 (90) 150/78 136/65 Pulse Ox 98 91 O2 Delivery Room Air Simple Mask O2 Flow Rate 10 02/22/20 02/22/20 11:10 11:24 Pulse 75 Resp 16 18 B/P (MAP) 150/78 Pulse Ox 97 97 O2 Delivery Simple Mask Room Air O2 Flow Rate 10 Intake and Output 02/21/20 02/21/20 02/22/20 15:00 23:00 07:00 Intake Total 220 ml Balance 220 ml Justicifation of Admission Dx: Justifications for Admission: Justification of Admission Dx: Yes Nutrition Consultation Dietary Evaluation: Recommendations by RD: Dietary education by RD, Increase Calorie Intake, Protein supplementation Comments: REC Ensure clear (orellana) w/dinner while on clear liquids REC advance diet as able/tolerated s/p procedure, goal diet cardiac/w/textures per pt, may need softer foods due to denture problems REC Ensure (chocolate) w/lunch once diet advanced past clears Expected Outcomes/Goals: diet advancement Interpretation of weight loss: >10% in 6 months Malnutrition Findings: Food and Nutrition Intake (Mod: <75% est energy req 7days Body Fat Depletion (Non Severe: Mild Depletion Weight Status: Obese YANI CORBETT MD Feb 22, 2020 11:49
[2020-02-22] MEDS: IV RINGERS,LACTATED 1000ML 1,000 ML IV SCH ×2 (12:13→21:19)
[2020-02-22] MEDS: PIPERACILLIN/TAZOBACTAM 3.375 GM in IV NORMAL SALINE 50ML 50 ML IV SCH ×2 (12:13→17:35)
--- NOTE | 2020-02-22 12:34 | RAD ---
AP abdomen 02/22/2020. Reason for exam: Postop exploratory laparotomy. The gas pattern shows no obstruction. There is a density overlying the upper left kidney resembling a renal calculus, although the recent CT did not show such a stone. This may be within the bowel. There is an elongated tubular structure overlying the pelvis. This may be a drainage tube. There are some sutures and surgical clips in the right abdomen. No other foreign body is seen. IMPRESSION: No evidence of bowel obstruction. Elongated structure overlying the pelvis is presumably a drainage tube related to surgery, although its location is indeterminate on this single projection. Electronically signed by: Huy Carrillo Jr., MD (02/22/2020 12:31 PM) [id number]
[2020-02-22] MEDS: ENOXAPARIN 40 MG/0.4 ML SYRINGE. SQ SCH (15:14)
[2020-02-23] MEDS: PIPERACILLIN/TAZOBACTAM 3.375 GM in IV NORMAL SALINE 50ML 50 ML IV SCH ×4 (00:27→17:00)
[2020-02-23 03:00] VITALS: BP 134/67
[2020-02-23 06:01] LABS: BASO % 0 % (0-3); EOS % 0 % (0-3); HEMATOCRIT 24.2 % (39.0-53.0); HEMOGLOBIN 8.2 g/dL (13.0-17.5); LYMPH # 0.5 x10^3/uL (1.0-4.8); LYMPH % 6 % (24-48); MEAN CORPUSCULAR HEMOGLOBIN 32 pg (25-35); MEAN CORPUSCULAR HGB CONC 34 g/dL (31-37); MEAN CORPUSCULAR VOLUME 95 fL (79-100); MONO # 0.9 x10^3/uL (0.0-1.1); MONO % 9 % (0-9); NEUT # 7.8 x10^3/uL (1.8-7.7); NEUT % 85 % (31-73); PLATELET COUNT 342 x10^3/uL (140-400); RED BLOOD COUNT 2.55 x10^6/uL (4.30-5.70); RED CELL DISTRIBUTION WIDTH 14.7 % (11.5-14.5); WHITE BLOOD COUNT 9.2 x10^3/uL (4.0-11.0)
[2020-02-23 06:25] LABS: CALCIUM 8.5 mg/dL (8.5-10.1); CREATININE 1.2 mg/dL (0.7-1.3); GFR 70.9; POTASSIUM 4.5 mmol/L (3.5-5.1)
[2020-02-23 07:29] VITALS: BP 150/72
[2020-02-23] MEDS: IV RINGERS,LACTATED 1000ML 1,000 ML IV SCH ×2 (08:11→17:00)
[2020-02-23] MEDS: LISINOPRIL 10 MG TABLET PO SCH (08:11)
[2020-02-23] MEDS: ALLOPURINOL 100 MG TABLET. PO SCH (08:11)
--- NOTE | 2020-02-23 08:46 | PDOC ---
SURGICAL PROGRESS NOTE DATE: 02/23/20 TIME: 08:45 Subjective pain managed, hurts with coughing no flatus Vital Signs Vital Signs Date Time Temp Pulse Resp B/P (MAP) Pulse Ox O2 Delivery O2 Flow Rate FiO2 02/23/20 08:11 101 150/72 02/23/20 07:29 98.8 19 97 Room Air 98.8 02/22/20 11:10 10 I&O Intake and Output 02/23/20 07:00 Intake Total 110 ml Output Total 250 ml Balance -140 ml Intake Oral 60 ml IV Total 50 ml Output Urine Total 250 ml General: Alert, Oriented X3, Cooperative Abdomen: Soft, Other (dressing dry, ND) Labs Laboratory Tests Test 02/23/20 05:30 White Blood Count 9.2 x10^3/uL (4.0-11.0) Red Blood Count 2.55 x10^6/uL (4.30-5.70) Hemoglobin 8.2 g/dL (13.0-17.5) Hematocrit 24.2 % (39.0-53.0) Mean Corpuscular Volume 95 fL (79-100) Mean Corpuscular Hemoglobin 32 pg (25-35) Mean Corpuscular Hemoglobin Concent 34 g/dL (31-37) Red Cell Distribution Width 14.7 % (11.5-14.5) Platelet Count 342 x10^3/uL (140-400) Neutrophils (%) (Auto) 85 % (31-73) Lymphocytes (%) (Auto) 6 % (24-48) Monocytes (%) (Auto) 9 % (0-9) Eosinophils (%) (Auto) 0 % (0-3) Basophils (%) (Auto) 0 % (0-3) Neutrophils # (Auto) 7.8 x10^3/uL (1.8-7.7) Lymphocytes # (Auto) 0.5 x10^3/uL (1.0-4.8) Monocytes # (Auto) 0.9 x10^3/uL (0.0-1.1) Eosinophils # (Auto) 0.0 x10^3/uL (0.0-0.7) Basophils # (Auto) 0.0 x10^3/uL (0.0-0.2) Sodium Level 140 mmol/L (136-145) Potassium Level 4.5 mmol/L (3.5-5.1) Chloride Level 106 mmol/L (98-107) Carbon Dioxide Level 21 mmol/L (21-32) Anion Gap 13 (6-14) Blood Urea Nitrogen 10 mg/dL (8-26) Creatinine 1.2 mg/dL (0.7-1.3) Estimated GFR (Cockcroft-Gault) 70.9 Glucose Level 110 mg/dL (70-99) Calcium Level 8.5 mg/dL (8.5-10.1) Laboratory Tests Test 02/23/20 05:30 White Blood Count 9.2 x10^3/uL (4.0-11.0) Red Blood Count 2.55 x10^6/uL (4.30-5.70) Hemoglobin 8.2 g/dL (13.0-17.5) Hematocrit 24.2 % (39.0-53.0) Mean Corpuscular Volume 95 fL (79-100) Mean Corpuscular Hemoglobin 32 pg (25-35) Mean Corpuscular Hemoglobin Concent 34 g/dL (31-37) Red Cell Distribution Width 14.7 % (11.5-14.5) Platelet Count 342 x10^3/uL (140-400) Neutrophils (%) (Auto) 85 % (31-73) Lymphocytes (%) (Auto) 6 % (24-48) Monocytes (%) (Auto) 9 % (0-9) Eosinophils (%) (Auto) 0 % (0-3) Basophils (%) (Auto) 0 % (0-3) Neutrophils # (Auto) 7.8 x10^3/uL (1.8-7.7) Lymphocytes # (Auto) 0.5 x10^3/uL (1.0-4.8) Monocytes # (Auto) 0.9 x10^3/uL (0.0-1.1) Eosinophils # (Auto) 0.0 x10^3/uL (0.0-0.7) Basophils # (Auto) 0.0 x10^3/uL (0.0-0.2) Sodium Level 140 mmol/L (136-145) Potassium Level 4.5 mmol/L (3.5-5.1) Chloride Level 106 mmol/L (98-107) Carbon Dioxide Level 21 mmol/L (21-32) Anion Gap 13 (6-14) Blood Urea Nitrogen 10 mg/dL (8-26) Creatinine 1.2 mg/dL (0.7-1.3) Estimated GFR (Cockcroft-Gault) 70.9 Glucose Level 110 mg/dL (70-99) Calcium Level 8.5 mg/dL (8.5-10.1) Problem List s/p right colon await bowel function Justicifation of Admission Dx: Justifications for Admission: Justification of Admission Dx: Yes NOMAN ADDISON CREASING MACHINE OPERATOR Feb 23, 2020 08:46
--- NOTE | 2020-02-23 10:25 | PDOC ---
PROGRESS NOTES Date of Service: DATE: 02/23/20 TIME: 10:23 Subjective Subjective feels better today Objective Objective Vital Signs Date Time Temp Pulse Resp B/P (MAP) Pulse Ox O2 Delivery O2 Flow Rate FiO2 02/23/20 08:11 101 150/72 02/23/20 08:00 Room Air 02/23/20 07:29 98.8 19 97 98.8 02/22/20 11:10 10 Intake and Output 02/23/20 07:00 Intake Total 110 ml Output Total 250 ml Balance -140 ml Intake Oral 60 ml IV Total 50 ml Output Urine Total 250 ml Physical Exam Abdomen: Soft, Other (dressing dry, ND) General: Alert, Oriented X3, Cooperative Neuro: Normal speech Psych/Mental Status: Mental status NL Skin: No breakdown Assessment Assessment FINAL IMPRESSION: 1. Right lower quadrant pain. 2. 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 3. Small lesions in the liver, not sure of the etiology. 4. A 10 mm left lung nodule. 5. Hypertension. 6. Gout. PLAN: Date: Feb 22, 2020,POD#1 Pre-Op Diagnosis: Colon obstruction, suspect colon cancer Post-Op Diagnosis: same, favor appendiceal cancer Procedure Performed: laparoscopic converted to open right colon resection, removal of umbilical mesh Surgeon: Maximus eng ok IV Zosyn spoke with surgeon yesterday iv fluids Comment Review of Relevant I have reviewed the following items baljeet (where applicable) has been applied. Labs Laboratory Tests Test 02/23/20 05:30 White Blood Count 9.2 x10^3/uL (4.0-11.0) Red Blood Count 2.55 x10^6/uL (4.30-5.70) Hemoglobin 8.2 g/dL (13.0-17.5) Hematocrit 24.2 % (39.0-53.0) Mean Corpuscular Volume 95 fL (79-100) Mean Corpuscular Hemoglobin 32 pg (25-35) Mean Corpuscular Hemoglobin Concent 34 g/dL (31-37) Red Cell Distribution Width 14.7 % (11.5-14.5) Platelet Count 342 x10^3/uL (140-400) Neutrophils (%) (Auto) 85 % (31-73) Lymphocytes (%) (Auto) 6 % (24-48) Monocytes (%) (Auto) 9 % (0-9) Eosinophils (%) (Auto) 0 % (0-3) Basophils (%) (Auto) 0 % (0-3) Neutrophils # (Auto) 7.8 x10^3/uL (1.8-7.7) Lymphocytes # (Auto) 0.5 x10^3/uL (1.0-4.8) Monocytes # (Auto) 0.9 x10^3/uL (0.0-1.1) Eosinophils # (Auto) 0.0 x10^3/uL (0.0-0.7) Basophils # (Auto) 0.0 x10^3/uL (0.0-0.2) Sodium Level 140 mmol/L (136-145) Potassium Level 4.5 mmol/L (3.5-5.1) Chloride Level 106 mmol/L (98-107) Carbon Dioxide Level 21 mmol/L (21-32) Anion Gap 13 (6-14) Blood Urea Nitrogen 10 mg/dL (8-26) Creatinine 1.2 mg/dL (0.7-1.3) Estimated GFR (Cockcroft-Gault) 70.9 Glucose Level 110 mg/dL (70-99) Calcium Level 8.5 mg/dL (8.5-10.1) Medications Current Medications Enoxaparin Sodium (Lovenox 40mg Syringe) 40 mg Q24H SQ ; Start 02/22/20 at 16:00 Lidocaine HCl (Lidocaine Pf 2% Vial) 5 ml STK-MED ONCE .ROUTE ; Start 02/22/20 at 10:34; Stop 02/22/20 at 10:34; Status DC Morphine Sulfate 30 ml @ 0 mls/hr CONT PRN PRN IV PER PROTOCOL Last administered on 02/22/20at 11:46; Start 02/22/20 at 11:00 Naloxone HCl (Narcan) 0.4 mg PRN Q2MIN PRN IV SEE INSTRUCTIONS; Start 02/22/20 at 10:45 Ondansetron HCl (Zofran) 4 mg PRN Q6HRS PRN IVP NAUESA, 1ST CHOICE; Start 02/22/20 at 10:45 Piperacillin Sod/ Tazobactam Sod 3.375 gm/Sodium Chloride 50 ml @ 100 mls/hr Q6HRS IV Last administered on 02/23/20at 06:12; Start 02/22/20 at 12:00 Propofol (Diprivan) 200 mg STK-MED ONCE IV ; Start 02/22/20 at 10:45; Stop at 10:46; Status DC Ringer's Solution 1,000 ml @ 100 mls/hr Q10H IV Last administered on 02/23/20at 08:11; Start 02/22/20 at 12:00 Sodium Chloride 1,000 ml @ 25 mls/hr Q24H IV Last administered on 02/22/20at 11:46; Start 02/22/20 at 11:00 Sodium Chloride (Normal Saline Flush) 3 ml QSHIFT PRN IV AFTER MEDS AND BLOOD DRAWS; Start 02/22/20 at 10:45 Vitals/I & O Vital Sign - Last 24 Hours 02/22/20 02/22/20 02/22/20 02/22/20 10:55 11:10 11:24 11:25 Temp 98.6 98.6 Pulse 69 75 74 Resp 16 16 18 16 B/P (MAP) 136/65 150/78 149/72 Pulse Ox 91 97 97 95 O2 Delivery Simple Mask Simple Mask Room Air Room Air O2 Flow Rate 10 10 02/22/20 02/22/20 02/22/20 02/22/20 11:40 11:46 11:55 12:10 Temp 98.6 98.6 Pulse 74 80 87 Resp 16 20 16 B/P (MAP) 147/76 158/78 145/72 (96) Pulse Ox 95 94 95 93 O2 Delivery Room Air Room Air Room Air Room Air 02/22/20 02/22/20 02/22/20 02/22/20 12:12 12:12 12:25 12:40 Pulse 83 86 B/P (MAP) 139/77 (97) 136/74 (94) Pulse Ox 95 94 O2 Delivery Room Air Room Air Room Air Room Air 02/22/20 02/22/20 02/22/20 02/22/20 12:55 13:20 13:50 14:50 Pulse 88 83 87 86 B/P (MAP) 144/76 (98) 152/69 (96) 139/72 (94) 143/74 (97) Pulse Ox 96 97 97 97 O2 Delivery Room Air Room Air Room Air Room Air 02/22/20 02/22/20 02/22/20 02/22/20 15:49 15:50 19:00 20:09 Temp 98.8 98.9 98.8 98.9 Pulse 84 91 95 Resp 16 17 B/P (MAP) 142/73 (96) 143/67 (92) 146/76 (99) Pulse Ox 98 96 98 O2 Delivery Room Air Room Air Room Air Room Air 02/22/20 02/23/20 02/23/20 02/23/20 23:00 03:00 07:29 08:00 Temp 98.9 98.6 98.8 98.9 98.6 98.8 Pulse 95 96 101 Resp 17 17 19 B/P (MAP) 146/76 (99) 134/67 (89) 150/72 (98) Pulse Ox 98 97 97 O2 Delivery Room Air Room Air Room Air Room Air 02/23/20 08:11 Pulse 101 B/P (MAP) 150/72 Intake and Output 02/22/20 02/22/20 02/23/20 15:00 23:00 07:00 Intake Total 50 ml 0 ml 60 ml Output Total 250 ml Balance 50 ml -250 ml 60 ml Justicifation of Admission Dx: Justifications for Admission: Justification of Admission Dx: Yes Nutrition Consultation Dietary Evaluation: Recommendations by RD: Dietary education by RD, Increase Calorie Intake, Protein supplementation Comments: REC Ensure clear (orellana) w/dinner while on clear liquids REC advance diet as able/tolerated s/p procedure, goal diet cardiac/w/textures per pt, may need softer foods due to denture problems REC Ensure (chocolate) w/lunch once diet advanced past clears Expected Outcomes/Goals: diet advancement Interpretation of weight loss: >10% in 6 months Malnutrition Findings: Food and Nutrition Intake (Mod: <75% est energy req 7days Body Fat Depletion (Non Severe: Mild Depletion Weight Status: Obese YANI CORBETT MD Feb 23, 2020 10:25
[2020-02-23 11:00] VITALS: BP 128/58
[2020-02-23] MEDS: IV NORMAL SALINE 1000ML BAG 1,000 ML IV SCH (11:14)
[2020-02-23 15:42] VITALS: BP 147/76
[2020-02-23] MEDS: ENOXAPARIN 40 MG/0.4 ML SYRINGE. SQ SCH (17:00)
[2020-02-23 19:00] VITALS: BP 159/74
[2020-02-23 23:00] VITALS: BP 147/65
[2020-02-24] MEDS: PIPERACILLIN/TAZOBACTAM 3.375 GM in IV NORMAL SALINE 50ML 50 ML IV SCH ×4 (00:27→15:51)
[2020-02-24 03:04] VITALS: BP 161/71
[2020-02-24] MEDS: IV RINGERS,LACTATED 1000ML 1,000 ML IV SCH ×2 (05:41→08:47)
[2020-02-24 07:00] VITALS: BP 148/68
[2020-02-24] MEDS: LISINOPRIL 10 MG TABLET PO SCH (08:04)
[2020-02-24] MEDS: ALLOPURINOL 100 MG TABLET. PO SCH (08:04)
--- NOTE | 2020-02-24 08:20 | PDOC ---
PROGRESS NOTES Date of Service: DATE: 02/24/20 TIME: 08:18 Subjective Subjective says gout acting up Objective Objective Vital Signs Date Time Temp Pulse Resp B/P (MAP) Pulse Ox O2 Delivery O2 Flow Rate FiO2 02/24/20 08:04 91 148/68 02/24/20 07:00 99.8 17 94 Nasal Cannula 2.0 99.8 Intake and Output 02/24/20 07:00 Intake Total 0 ml Output Total 2250 ml Balance -2250 ml Intake Oral 0 ml Output Urine Total 2250 ml Physical Exam Abdomen: Soft, Other (dressing dry, ND) General: Alert, Oriented X3, Cooperative Neuro: Normal speech Psych/Mental Status: Mental status NL Skin: No breakdown COMMENT foot not red , mild pain Assessment Assessment FINAL IMPRESSION: 1. Right lower quadrant pain. 2. 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 3. Small lesions in the liver, not sure of the etiology. 4. A 10 mm left lung nodule. 5. Hypertension. 6. Gout. PLAN:IV solumedrol for gout attackX1, cannot take oral meds Date: Feb 22, 2020,POD#2 Pre-Op Diagnosis: Colon obstruction, suspect colon cancer Post-Op Diagnosis: same, favor appendiceal cancer Procedure Performed: laparoscopic converted to open right colon resection, removal of umbilical mesh Surgeon: Maximus Perez labs ok IV Zosyn spoke with surgeon yesterday iv fluids Comment Review of Relevant I have reviewed the following items baljeet (where applicable) has been applied. Labs Microbiology 02/22/20 Gram Stain - Final, Resulted 02/22/20 Aerobic and Anaerobic Culture, Resulted Pending Vitals/I & O Vital Sign - Last 24 Hours 02/23/20 02/23/20 02/23/20 02/23/20 11:00 15:42 19:00 20:22 Temp 98.9 99.1 99.6 98.9 99.1 99.6 Pulse 95 86 82 Resp 19 19 20 B/P (MAP) 128/58 (81) 147/76 (99) 159/74 (102) Pulse Ox 99 98 92 O2 Delivery Room Air Room Air Nasal Cannula Room Air 02/23/20 02/24/20 02/24/20 02/24/20 23:00 03:04 07:00 08:04 Temp 99.6 100.2 99.8 99.6 100.2 99.8 Pulse 83 86 91 91 Resp 20 20 17 B/P (MAP) 147/65 (92) 161/71 (101) 148/68 (94) 148/68 Pulse Ox 95 96 94 O2 Delivery Nasal Cannula Nasal Cannula Nasal Cannula O2 Flow Rate 2.0 Intake and Output 02/23/20 02/23/20 02/24/20 15:00 23:00 07:00 Intake Total 0 ml 0 ml Output Total 600 ml 1000 ml 650 ml Balance -600 ml -1000 ml -650 ml Nutrition Consultation Dietary Evaluation: Recommendations by RD: Dietary education by RD, Increase Calorie Intake, Protein supplementation Comments: REC Ensure clear (orellana) w/dinner while on clear liquids REC advance diet as able/tolerated s/p procedure, goal diet cardiac/w/textures per pt, may need softer foods due to denture problems REC Ensure (chocolate) w/lunch once diet advanced past clears Expected Outcomes/Goals: diet advancement Interpretation of weight loss: >10% in 6 months Malnutrition Findings: Food and Nutrition Intake (Mod: <75% est energy req 7days Body Fat Depletion (Non Severe: Mild Depletion Weight Status: Obese YANI CORBETT MD Feb 24, 2020 08:20
[2020-02-24] MEDS ORDERED: methylPREDNISolone SOD SUCC PF 40 MG/ML VIAL. IV ONE (08:30)
[2020-02-24] MEDS: IV NORMAL SALINE 1000ML BAG 1,000 ML IV SCH (08:43)
--- NOTE | 2020-02-24 10:56 | PDOC ---
Date of Service: DATE: 02/24/20 TIME: 10:51 Subjective: Subjective: Abd pain is okay but left foot is bothersome - "gout attack." No flatus but feels stomach rumbling. Objective: Objective: Tmax 100.2 Vital Signs: Vital Signs Date Time Temp Pulse Resp B/P (MAP) Pulse Ox O2 Delivery O2 Flow Rate FiO2 02/24/20 08:04 91 148/68 02/24/20 08:00 Room Air 2.0 02/24/20 07:00 99.8 17 94 99.8 Imaging: Chest CT 02/20 IMPRESSION: No acute abnormality is seen. There is no CT evidence of metastatic disease involving the chest. Colonoscopy 02/20 DESIREE normal. -'Scope advanced to ~hepatic flexure. Fair prep. At this point large mass nearly filling the lumen; we could not pass. Looks malignant. Biopsies taken and tattooed maybe 2 cm distally. Scattered diverticula to this level. No other lesions. Mucosa normal. Internal hemorrhoids on retroflex. IMP: Malignant-appearing mass. Diverticulosis. Internal hemorrhoids. REC: Will leave on clears. Await path. OR before path OK with me as little doubt needs surgery regardless. Pre-Op Diagnosis: Colon obstruction, suspect colon cancer Post-Op Diagnosis: same, favor appendiceal cancer Procedure Performed: laparoscopic converted to open right colon resection, removal of umbilical mesh KUB 02/21 IMPRESSION: No evidence of bowel obstruction. Elongated structure overlying the pelvis is presumably a drainage tube related to surgery, although its location is indeterminate on this single projection. PE: GEN: NAD LUNGS: CTAB HEART: RRR ABD: non-distended, not particularly tender, a few quiet gurgles to right NEURO/PSYCH: A & O 3 A/P: S/p right colon resection Gout -- Continue per surgery, await path. Justicifation of Admission Dx: Justifications for Admission: Justification of Admission Dx: Yes OSVALDO WATERS Feb 24, 2020 10:56
[2020-02-24 11:00] VITALS: BP 168/72
--- NOTE | 2020-02-24 14:05 | PDOC ---
SURGICAL PROGRESS NOTE DATE: 02/24/20 TIME: 14:03 Subjective resting pain with movement, cough no flatus Vital Signs Vital Signs Date Time Temp Pulse Resp B/P (MAP) Pulse Ox O2 Delivery O2 Flow Rate FiO2 02/24/20 11:00 99.0 94 16 168/72 (104) 95 Room Air 2.0 99.0 I&O Intake and Output 02/24/20 07:00 Intake Total 0 ml Output Total 2250 ml Balance -2250 ml Intake Oral 0 ml Output Urine Total 2250 ml General: Alert, Oriented X3, Cooperative Abdomen: Soft, Other (dressing intact) Labs Laboratory Tests Test 02/23/20 05:30 White Blood Count 9.2 x10^3/uL (4.0-11.0) Red Blood Count 2.55 x10^6/uL (4.30-5.70) Hemoglobin 8.2 g/dL (13.0-17.5) Hematocrit 24.2 % (39.0-53.0) Mean Corpuscular Volume 95 fL (79-100) Mean Corpuscular Hemoglobin 32 pg (25-35) Mean Corpuscular Hemoglobin Concent 34 g/dL (31-37) Red Cell Distribution Width 14.7 % (11.5-14.5) Platelet Count 342 x10^3/uL (140-400) Neutrophils (%) (Auto) 85 % (31-73) Lymphocytes (%) (Auto) 6 % (24-48) Monocytes (%) (Auto) 9 % (0-9) Eosinophils (%) (Auto) 0 % (0-3) Basophils (%) (Auto) 0 % (0-3) Neutrophils # (Auto) 7.8 x10^3/uL (1.8-7.7) Lymphocytes # (Auto) 0.5 x10^3/uL (1.0-4.8) Monocytes # (Auto) 0.9 x10^3/uL (0.0-1.1) Eosinophils # (Auto) 0.0 x10^3/uL (0.0-0.7) Basophils # (Auto) 0.0 x10^3/uL (0.0-0.2) Sodium Level 140 mmol/L (136-145) Potassium Level 4.5 mmol/L (3.5-5.1) Chloride Level 106 mmol/L (98-107) Carbon Dioxide Level 21 mmol/L (21-32) Anion Gap 13 (6-14) Blood Urea Nitrogen 10 mg/dL (8-26) Creatinine 1.2 mg/dL (0.7-1.3) Estimated GFR (Cockcroft-Gault) 70.9 Glucose Level 110 mg/dL (70-99) Calcium Level 8.5 mg/dL (8.5-10.1) Assessment/Plan await bowel function Justicifation of Admission Dx: Justifications for Admission: Justification of Admission Dx: Yes NOMAN ADDISON OSTEOLOGY TEACHER Feb 24, 2020 14:05
[2020-02-24 15:00] VITALS: BP 154/76
[2020-02-24] MEDS: ENOXAPARIN 40 MG/0.4 ML SYRINGE. SQ SCH (15:50)
--- NOTE | 2020-02-24 17:11 | NUR ---
SW following. Reviewed chart and discussed with RN. Pt from home. Pt is now on 2l 02 and IV Zosyn. SW is following for discharge planning.
[2020-02-24 19:00] VITALS: BP 162/75
[2020-02-24 23:00] VITALS: BP 157/70
[2020-02-25] MEDS: PIPERACILLIN/TAZOBACTAM 3.375 GM in IV NORMAL SALINE 50ML 50 ML IV SCH ×5 (00:41→23:21)
[2020-02-25] MEDS: IV RINGERS,LACTATED 1000ML 1,000 ML IV SCH ×3 (00:41→15:34)
[2020-02-25 03:00] VITALS: BP 154/75
[2020-02-25 07:00] VITALS: BP 179/78
--- NOTE | 2020-02-25 08:45 | PDOC ---
PROGRESS NOTES Date of Service: DATE: 02/25/20 TIME: 08:43 Subjective Subjective passing gas Objective Objective Vital Signs Date Time Temp Pulse Resp B/P (MAP) Pulse Ox O2 Delivery O2 Flow Rate FiO2 02/25/20 07:00 98.3 74 20 179/78 (111) 99 Nasal Cannula 2.0 98.3 Intake and Output 02/25/20 07:00 Intake Total 0 ml Output Total 950 ml Balance -950 ml Intake Oral 0 ml Output Urine Total 950 ml Physical Exam Abdomen: Soft, Other (dressing intact) General: Alert, Oriented X3, Cooperative Neuro: Normal speech Psych/Mental Status: Mental status NL Skin: No breakdown COMMENT foot not red , mild pain Assessment Assessment FINAL IMPRESSION: 1. Right lower quadrant pain. 2. 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 3. Small lesions in the liver, not sure of the etiology. 4. A 10 mm left lung nodule. 5. Hypertension. 6. Gout. PLAN:IV solumedrol for gout attackX1, cannot take oral meds Date: Feb 22, 2020,POD#3 Pre-Op Diagnosis: Colon obstruction, suspect colon cancer Post-Op Diagnosis: same, favor appendiceal cancer Procedure Performed: laparoscopic converted to open right colon resection, removal of umbilical mesh Surgeon: Maximus Perez labs ok IV Zosyn May be able to start on diet Medical oncology consult CEA 35 Comment Review of Relevant I have reviewed the following items baljeet (where applicable) has been applied. Labs Microbiology 02/22/20 Gram Stain - Final, Resulted 02/22/20 Aerobic and Anaerobic Culture - Preliminary, Resulted Vitals/I & O Vital Sign - Last 24 Hours 02/24/20 02/24/20 02/24/20 02/24/20 11:00 15:00 19:00 20:16 Temp 99.0 98.2 98.8 99.0 98.2 98.8 Pulse 94 94 85 Resp 16 18 18 B/P (MAP) 168/72 (104) 154/76 (102) 162/75 (104) Pulse Ox 95 100 97 O2 Delivery Room Air Room Air Room Air Room Air O2 Flow Rate 2.0 2.0 02/24/20 02/25/20 02/25/20 23:00 03:00 07:00 Temp 99.2 99.2 98.3 99.2 99.2 98.3 Pulse 82 82 74 Resp 20 20 20 B/P (MAP) 157/70 (99) 154/75 (101) 179/78 (111) Pulse Ox 98 98 99 O2 Delivery Nasal Cannula Nasal Cannula Nasal Cannula O2 Flow Rate 2.0 2.0 2.0 Intake and Output 02/24/20 02/24/20 02/25/20 15:00 23:00 07:00 Intake Total 0 ml 0 ml Output Total 350 ml 600 ml Balance -350 ml -600 ml 0 ml Justifications for Admission Other Justification Other justification for admit: colon mass with obstruction Nutrition Consultation Dietary Evaluation: Recommendations by RD: Dietary education by RD, Increase Calorie Intake, Protein supplementation Comments: REC resume Ensure clear w/meals once diet advanced per surgery If unable to advance diet within 24 - 48 hrs, recommend consideration of PPN for short-term non-enteral nutrition needs Expected Outcomes/Goals: diet advancement - not met, goal ongoing Interpretation of weight loss: >10% in 6 months Malnutrition Findings: Food and Nutrition Intake (Mod: <75% est energy req 7days Body Fat Depletion (Non Severe: Mild Depletion Weight Status: Obese YANI CORBETT MD Feb 25, 2020 08:45
--- NOTE | 2020-02-25 08:54 | PDOC ---
SURGICAL PROGRESS NOTE DATE: 02/25/20 TIME: 08:53 Subjective feeling better gout improved has some stool Vital Signs Vital Signs Date Time Temp Pulse Resp B/P (MAP) Pulse Ox O2 Delivery O2 Flow Rate FiO2 02/25/20 07:00 98.3 74 20 179/78 (111) 99 Nasal Cannula 2.0 98.3 I&O Intake and Output 02/25/20 06:59 Intake Total 0 ml Output Total 950 ml Balance -950 ml Intake Oral 0 ml Output Urine Total 950 ml General: Alert, Oriented X3, Cooperative Abdomen: Soft, Other (ND, incision intact ) Assessment/Plan trial clears Justicifation of Admission Dx: Justifications for Admission: Justification of Admission Dx: Yes NOMAN ADDISON APRN Feb 25, 2020 08:54
[2020-02-25] MEDS: LISINOPRIL 10 MG TABLET PO SCH (09:23)
[2020-02-25] MEDS: ALLOPURINOL 100 MG TABLET. PO SCH (09:23)
--- NOTE | 2020-02-25 10:11 | NUR ---
Bag of LR nonadministered by this RN. Previous bag still infusing, refer to EMAR for details.
[2020-02-25] MEDS ORDERED: MORPHINE SULFATE 2 MG/ML VIAL. IV PRN (10:30)
[2020-02-25 11:00] VITALS: BP 164/73
--- NOTE | 2020-02-25 12:07 | PDOC ---
Date of Service: DATE: 02/25/20 TIME: 12:05 Subjective: Subjective: Feeling better. Has stooled, taking clears, going to get up and walk again later, off oxygen. Objective: Vital Signs: Vital Signs Date Time Temp Pulse Resp B/P (MAP) Pulse Ox O2 Delivery O2 Flow Rate FiO2 02/25/20 11:00 98.0 94 18 164/73 (103) 98 Nasal Cannula 2.0 98.0 Labs: SOURCE: ABDOMEN ENTR: 02/22/20-1135 [facility] DR: SHYAM PONCE MD [facility] [place]: ABSCESS JULI GARCIA MD ORDERED: GER/AEROB/GS COMMENTS: ABDOMINAL ABSCESS Procedure Result GRAM STAIN Final Final NO ORGANISMS SEEN. SQUAMOUS EPI CELL:NONE SEEN PMN (WBCs):FEW Unless otherwise specified, Testing Performed by: [address] [address] For Inquires, the Physician may contact the Microbiology department at [phone] ANAEROBIC-AEROBIC CULTURE Preliminary Preliminary RARE GRAM NEGATIVE RODS on 02/24/20 at 0929 FINAL ID= [ESCHERICHIA COLI] ESCHERICHIA COLI ANTIMICROBIAL SUSCEPTIBILITY Preliminary Comment NEG JENNIFER 56 ESCHERICHIA COLI ANTIBIOTIC RESULT INTERPRETATION AMPICILLIN/SULBACTAM 16/8 I AMIKACIN <=16 S AMPICILLIN >16 R AMOXICILLIN/K CLAVULANATE <=8/4 S AZTREONAM <=4 S CEFTRIAXONE <=1 S CEFTAZIDIME <=1 S CEFOTAXIME <=2 S CEFOXITIN <=8 S CIPROFLOXACIN <=0.25 S CEFEPIME <=2 S CEFUROXIME <=4 S CEFTAZIDIME/AVIBACTAM <=4 S ERTAPENEM <=0.5 S GENTAMICIN <=2 S LEVOFLOXACIN <=0.5 S CONTINUED ON NEXT PAGE RUN DATE: 02/25/20 [facility] *LIVE* PAGE 2 RUN TIME: 1051 Specimen Inquiry SPEC: [id number] PATIENT: LIZZYJULI [id number] (Continued) Procedure Result ANTIMICROBIAL SUSCEPTIBILITY Preliminary (continued) MEROPENEM <=1 S PIPERACILLIN/TAZOBACTAM <=8 S TRIMETHOPRIM/SULFAMETHOXAZOLE <=0.5/9.5 S TETRACYCLINE <=4 S TOBRAMYCIN <=2 S Unless otherwise specified, Testing Performed by: [address] [address] For Inquires, the Physician may contact the Microbiology department at [phone] PE: GEN: NAD LUNGS: CTAB HEART: RRR ABD: soft NEURO/PSYCH: A & O 3 A/P: S/p right colon resection -- Improving post-op. Diet per surgery. Awaiting path. Justicifation of Admission Dx: Justifications for Admission: Justification of Admission Dx: Yes OSVALDO WATERS Feb 25, 2020 12:07
[2020-02-25 15:00] VITALS: BP 148/88
--- NOTE | 2020-02-25 15:42 | NUR ---
SW following. Spoke with RN and reviewed chart. Pt from home. Pt is now on room air. No PT/OT needs per RN. Pt remains on IV abx. SW will follow as needed but there are no anticipated SW needs at discharge.
[2020-02-25] MEDS: ENOXAPARIN 40 MG/0.4 ML SYRINGE. SQ SCH (16:31)
--- NOTE | 2020-02-25 18:06 | PATHOLOGY ---
[facility] Accession Number: [id number] . 01 Material submitted: . hepatic flexure - HEPATIC FLEXURE MASS . 01 Clinical history: . R/O MASS . 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 LBQ 02/25/2020 1800 Local . 02 Comment: The case is seen in co-review with Dr. Sia Poole who concurs with the above diagnosis. (MLK/db; 02/25/2020) . 02 Electronically signed: . Leonidas Valenzuela MD, Pathologist NPI- [id number] . 01 Gross description: . The specimen is received in formalin, labeled "Shola Rodriguez, hepatic flexure mass" and consists of multiple friable fragments of cutler tissue measuring 1.4 x 0.9 x 0.2 cm in aggregate which are entirely submitted in A1. (SDY; 02/21/2020) SYU/SYU 02/21/2020 1725 Local . 02 Pathologist provided ICD-10: D12.3 . 02 CPT . 231088 Specimen Comment: A courtesy copy of this report has been sent to [phone] Specimen Comment: [id number] Specimen Comment: Report sent to / DR CORBETT Performed at: 01 [facility] [address], [place] [id number] MD Cody Pham MD Phone: [phone] Performed at: 02 [facility] [address], [place] [id number] MD Matias Wong MD Phone: [phone]
[2020-02-25] MEDS: HYDROcodon/APAP 7.5/325MG ORAL 15 ML SOLUTION PO PRN (18:11)
[2020-02-25 19:00] VITALS: BP 158/86
--- NOTE | 2020-02-25 21:20 | PDOC2 ---
CONSULT Date of Consult Date of Consult DATE: 02/25/20 TIME: 16:48 Reason for Consult Reason for Consult: Colon mass Referring Physician Referring Physician: Dr Cheatham Identification/Chief Complaint Chief Complaint Abdominal pain Source Source: Chart review, Patient History of Present Illness Reason for Visit: Shola Rodriguez is a 79 year old male with hx of tobacco abuse who presented with abdominal pain for the past 2 weeks. He saw his PCP Dr Cheatham for it and received a CT abdomen and pelvis which showed an 8 cm cecal mass. He was also found to have anemia. He received CT chest which showed no evidence of metastatic disease. He was seen by Dr Kaiser and underwent a right hemicolectomy on 02/22/2020 and pathology is pending at this time. Oncology consultation has been sought given suspicion for colon cancer. Mr Rodriguez reports that he has resumed a clear liquid diet post-operatively. He reports no other symptoms at this time. He smokes 1 PPD and has done so for 40 years He drinks 3-4 beers daily He reports smoking marijuana He is considering smoking cessation but does not wish to moderate alcohol use at this time. Past Medical History Cardiovascular: HTN Rheumatologic: Gout Renal/: Chronic renal insuff Past Surgical History Past Surgical History: No pertinent history Family History Family History: Hypertension Social History <1 pack per day ALCOHOL: other (4 beers and a few shots - not every day) Drugs: Marijuana Lives: Alone Current Medications Current Medications Current Medications Allopurinol (Zyloprim) 100 mg DAILY PO Last administered on 02/25/20at 09:23; Start 02/19/20 at 09:00 Lisinopril (Prinivil) 10 mg DAILY PO Last administered on 02/25/20at 09:23; Start 02/19/20 at 09:00 Diphenhydramine HCl (Benadryl) 25 mg PRN QHS PRN PO ITCHING Last administered on 02/20/20at 22:02; Start 02/18/20 at 21:15 Dextrose/Sodium Chloride 1,000 ml @ 75 mls/hr [id number] IV Last administered on 02/21/20at 07:29; Start 02/18/20 at 21:15; Stop 02/22/20 at 12:01; Status DC Ondansetron HCl (Zofran) 4 mg PRN Q6HRS PRN IV NAUSEA/VOMITING; Start 02/20/20 at 07:00; Stop 02/20/20 at 20:00; Status DC Fentanyl Citrate (Fentanyl 2ml Vial) 25 mcg PRN Q5MIN PRN IV MILD PAIN 1-3; Start 02/20/20 at 07:00; Stop 02/20/20 at 20:00; Status DC Fentanyl Citrate (Fentanyl 2ml Vial) 50 mcg PRN Q5MIN PRN IV MODERATE TO SEVERE PAIN; Start 02/20/20 at 07:00; Stop 02/20/20 at 20:00; Status DC Morphine Sulfate (Morphine Sulfate) 1 mg PRN Q10MIN PRN IV SEVERE PAIN 7-10; Start 02/20/20 at 07:00; Stop 02/20/20 at 20:00; Status DC Ringer's Solution 1,000 ml @ 30 mls/hr Q24H IV Last administered on 02/20/20at 07:00; Start 02/20/20 at 07:00; Stop 02/20/20 at 18:59; Status DC Lidocaine HCl (Xylocaine-Mpf 1% 2ml Vial) 2 ml PRN 1X PRN ID PRIOR TO IV START; Start 02/20/20 at 07:00; Stop 02/20/20 at 20:00; Status DC Hydromorphone HCl (Dilaudid) 0.5 mg PRN Q10MIN PRN IV SEV PAIN, Second choice; Start 02/20/20 at 07:00; Stop 02/20/20 at 20:00; Status DC Prochlorperazine Edisylate (Compazine) 5 mg PACU PRN PRN IV NAUSEA, MRX1; Start 02/20/20 at 07:00; Stop 02/20/20 at 20:00; Status DC Gadoterate Meglumine (Dotarem) 17.8 ml 1X ONCE IVP Last administered on 02/19/20at 13:15; Start 02/19/20 at 13:15; Stop 02/19/20 at 13:18; Status DC Polyethylene Glycol (miraLAX Powder BULK BOTTLE) 238 gm 1X ONCE PO Last administered on 02/20/20at 10:02; Start 02/20/20 at 10:30; Stop 02/20/20 at 10:31; Status DC Magnesium Citrate (Citroma) 296 ml 1X ONCE PO ; Start 02/20/20 at 09:15; Stop 02/20/20 at 09:16; Status DC Bisacodyl (Dulcolax Tab) 10 mg 1X ONCE PO Last administered on 02/20/20at 09:52; Start 02/20/20 at 09:15; Stop 02/20/20 at 09:16; Status DC Magnesium Citrate (Citroma) 296 ml 1X ONCE PO Last administered on 02/20/20at 10:05; Start 02/20/20 at 10:00; Stop 02/20/20 at 10:01; Status DC Propofol (Diprivan) 200 mg STK-MED ONCE IV ; Start 02/20/20 at 11:32; Stop 02/20/20 at 11:32; Status DC Lidocaine HCl (Lidocaine Pf 2% Vial) 5 ml STK-MED ONCE .ROUTE ; Start 02/20/20 at 11:32; Stop 02/20/20 at 11:32; Status DC Fentanyl Citrate (Fentanyl 2ml Vial) 100 mcg STK-MED ONCE .ROUTE ; Start 02/20/20 at 11:32; Stop 02/20/20 at 11:33; Status Cancel Ringer's Solution 1,000 ml @ 30 mls/hr Q24H IV ; Start 02/21/20 at 07:00; Stop 02/21/20 at 18:59; Status DC Propofol (Diprivan) 200 mg STK-MED ONCE IV ; Start 02/21/20 at 12:16; Stop 02/21/20 at 12:17; Status DC Lidocaine HCl (Lidocaine Pf 2% Vial) 5 ml STK-MED ONCE .ROUTE ; Start 02/21/20 at 12:16; Stop 02/21/20 at 12:17; Status DC Zolpidem Tartrate (Ambien) 5 mg PRN QHS PRN PO INSOMNIA Last administered on 02/21/20at 22:50; Start 02/21/20 at 16:00 Cefoxitin Sodium (Mefoxin) 2 gm 1X PREOP IVP Last administered on 02/22/20at 09:08; Start 02/22/20 at 08:00; Stop 02/22/20 at 14:00; Status DC Ondansetron HCl (Zofran) 4 mg PRN Q6HRS PRN IV NAUSEA/VOMITING; Start 02/22/20 at 07:00; Stop 02/22/20 at 15:00; Status DC Fentanyl Citrate (Fentanyl 2ml Vial) 25 mcg PRN Q5MIN PRN IV MILD PAIN 1-3 Last administered on 02/22/20at 11:24; Start 02/22/20 at 07:00; Stop 02/22/20 at 15:00; Status DC Fentanyl Citrate (Fentanyl 2ml Vial) 50 mcg PRN Q5MIN PRN IV MODERATE TO SEVERE PAIN; Start 02/22/20 at 07:00; Stop 02/22/20 at 15:00; Status DC Morphine Sulfate (Morphine Sulfate) 1 mg PRN Q10MIN PRN IV SEVERE PAIN 7-10; Start 02/22/20 at 07:00; Stop 02/22/20 at 15:00; Status DC Ringer's Solution 1,000 ml @ 30 mls/hr Q24H IV ; Start 02/22/20 at 07:00; Stop 02/22/20 at 12:01; Status DC Lidocaine HCl (Xylocaine-Mpf 1% 2ml Vial) 2 ml PRN 1X PRN ID PRIOR TO IV START; Start 02/22/20 at 07:00; Stop 02/22/20 at 15:00; Status DC Hydromorphone HCl (Dilaudid) 0.5 mg PRN Q10MIN PRN IV SEV PAIN, Second choice; Start 02/22/20 at 07:00; Stop 02/22/20 at 15:00; Status DC Prochlorperazine Edisylate (Compazine) 5 mg PACU PRN PRN IV NAUSEA, MRX1; Start 02/22/20 at 07:00; Stop 02/22/20 at 15:00; Status DC Iohexol (Omnipaque 300 Mg/ml) 75 ml 1X ONCE IV Last administered on 02/21/20at 22:02; Start 02/21/20 at 22:00; Stop 02/21/20 at 22:01; Status DC Info (CONTRAST GIVEN -- Rx MONITORING) 1 each PRN DAILY PRN MC SEE COMMENTS; Start 02/21/20 at 22:00; Stop 02/23/20 at 21:59; Status DC Bupivacaine HCl/ Epinephrine Bitart (Sensorcain-Epi 0.5%-1:[id number] Mpf) 30 ml STK-MED ONCE .ROUTE Last administered on 02/22/20at 08:50; Start 02/22/20 at 07:11; Stop 02/22/20 at 07:11; Status DC Rocuronium [place] (Zemuron) 50 mg STK-MED ONCE .ROUTE ; Start 02/22/20 at 07:53; Stop 02/22/20 at 07:54; Status DC Fentanyl Citrate (Fentanyl 5ml Vial) 250 mcg STK-MED ONCE .ROUTE ; Start 02/22/20 at 07:54; Stop 02/22/20 at 07:54; Status DC Propofol (Diprivan) 200 mg STK-MED ONCE IV ; Start 02/22/20 at 07:54; Stop 02/22/20 at 07:54; Status DC Desflurane (Suprane) 90 ml STK-MED ONCE IH ; Start 02/22/20 at 07:54; Stop 02/22/20 at 07:54; Status DC Lidocaine HCl (Lidocaine Pf 2% Vial) 5 ml STK-MED ONCE .ROUTE ; Start 02/22/20 at 07:54; Stop 02/22/20 at 07:54; Status DC Phenylephrine HCl (PHENYLEPHRINE in 0.9% NACL PF) 1 mg STK-MED ONCE IV ; Start 02/22/20 at 07:54; Stop 02/22/20 at 07:54; Status DC Famotidine (Pepcid Vial) 20 mg STK-MED ONCE .ROUTE ; Start 02/22/20 at 08:47; Stop 02/22/20 at 08:47; Status DC Dexamethasone Sodium Phosphate (Decadron) 4 mg STK-MED ONCE .ROUTE ; Start 02/22/20 at 08:47; Stop 02/22/20 at 08:47; Status DC Ondansetron HCl (Zofran) 4 mg STK-MED ONCE .ROUTE ; Start 02/22/20 at 08:47; Stop 02/22/20 at 08:47; Status DC Rocuronium [place] (Zemuron) 50 mg STK-MED ONCE .ROUTE ; Start 02/22/20 at 09:13; Stop 02/22/20 at 09:13; Status DC Ketamine HCl (Ketamine) 50 mg STK-MED ONCE .ROUTE ; Start 02/22/20 at 09:51; Stop 02/22/20 at 09:51; Status DC Methylene Blue (Provayblue) 10 ml STK-MED ONCE .ROUTE ; Start 02/22/20 at 09:57; Stop 02/22/20 at 09:57; Status DC Glycopyrrolate (Robinul) 1 mg STK-MED ONCE .ROUTE ; Start 02/22/20 at 10:18; Stop 02/22/20 at 10:19; Status DC Neostigmine [place] (Neostigmine Methylsulfate) 5 mg STK-MED ONCE .ROUTE ; Start 02/22/20 at 10:18; Stop 02/22/20 at 10:19; Status DC Lidocaine HCl (Lidocaine Pf 2% Vial) 5 ml STK-MED ONCE .ROUTE ; Start 02/22/20 at 10:34; Stop 02/22/20 at 10:34; Status DC Propofol (Diprivan) 200 mg STK-MED ONCE IV ; Start 02/22/20 at 10:45; Stop 02/22/20 at 10:46; Status DC Enoxaparin Sodium (Lovenox 40mg Syringe) 40 mg Q24H SQ Last administered on 02/25/20at 16:31; Start 02/22/20 at 16:00 Sodium Chloride (Normal Saline Flush) 3 ml QSHIFT PRN IV AFTER MEDS AND BLOOD DRAWS; Start 02/22/20 at 10:45 Ringer's Solution 1,000 ml @ 100 mls/hr Q10H IV Last administered on 02/25/20at 15:34; Start 02/22/20 at 12:00 Naloxone HCl (Narcan) 0.4 mg PRN Q2MIN PRN IV SEE INSTRUCTIONS; Start 02/22/20 at 10:45 Sodium Chloride 1,000 ml @ 25 mls/hr Q24H IV Last administered on 02/24/20at 08:43; Start 02/22/20 at 11:00; Stop 02/25/20 at 10:25; Status DC Morphine Sulfate 30 ml @ 0 mls/hr CONT PRN PRN IV PER PROTOCOL Last administered on 02/22/20at 11:46; Start 02/22/20 at 11:00; Stop 02/25/20 at 10:25; Status DC Ondansetron HCl (Zofran) 4 mg PRN Q6HRS PRN IVP DOMINICK, 1ST CHOICE; Start 02/22/20 at 10:45 Piperacillin Sod/ Tazobactam Sod 3.375 gm/Sodium Chloride 50 ml @ 100 mls/hr Q6HRS IV Last administered on 02/25/20at 18:11; Start 02/22/20 at 12:00 Methylprednisolone Sodium Succinate (SOLU-Medrol 40MG VIAL) 40 mg 1X ONCE IV Last administered on 02/24/20at 08:43; Start 02/24/20 at 08:30; Stop 02/24/20 at 08:31; Status DC Cefoxitin Sodium (Mefoxin) 2 gm STK-MED ONCE IVP ; Start 02/22/20 at 08:18; Stop 02/25/20 at 10:19; Status DC Morphine Sulfate (Morphine Sulfate) 2 mg PRN Q3HRS PRN IV PAIN; Start 02/25/20 at 10:30 Acetaminophen/ Hydrocodone Bitart (Lortab 7.5-325/ 15ml Oral Solution) 15 ml PRN Q6HRS PRN PO PAIN Last administered on 02/25/20at 18:11; Start 02/25/20 at 10:30 Active Scripts Active Voltaren (Diclofenac Sodium) 100 Gm Gel..gram. 1 Gm TP QID 30 Days apply to affected area(s) Ibuprofen 600 Mg Tablet 600 Mg PO PRN Q6HRS PRN take with food or milk Reported Allopurinol 100 Mg Tablet 1 Tab PO DAILY Lisinopril 20 Mg Tablet 10 Mg PO DAILY Allergies Allergies: Coded Allergies: No Known Drug Allergies (Unverified , 02/21/20) ROS General: No: Chills, Night Sweats PSYCHOLOGICAL ROS: No: Anxiety, Behavioral Disorder Eyes: No Blurry vision, No Decreased vision HEENT: No: Heacaches, Visual Changes ALLERGY AND IMMUNOLOGY: No: Nasal Congestion, Post Nasal Drip Hematological and Lymphatic: No: Bleeding Problems, Blood Clots ENDOCRINE: No: Malaise/lethargy, Mood Swings Breast: No New/Changing Breast Lumps, No Nipple changes Respiratory: No: Cough, Hemoptysis Cardiovascular: No Chest Pain, No Palpitations Gastrointestinal: Yes Abdominal Pain; No Nausea, No Vomiting, No Diarrhea, No Melena, No Hematochezia Genitourinary: No Dysuria Musculoskeletal: No Gait Disturbance, No Joint Pain Neurological: No Impaired Coord/balance, No Numbness/Tingling Skin: No Dry Skin, No Rash Physical Exam General: Alert, Oriented X3 HEENT: Atraumatic, PERRLA Lungs: Clear to auscultation Heart: Regular rate Abdomen: Normal bowel sounds, Soft Extremities: No clubbing Skin: No rashes Neuro: Normal speech Psych/Mental Status: Mental status NL MUSCULOSKELETAL: No joint tenderness Vitals VITALS Vital Signs Date Time Temp Pulse Resp B/P (MAP) Pulse Ox O2 Delivery O2 Flow Rate FiO2 02/25/20 20:08 Room Air 02/25/20 19:25 18 99 02/25/20 19:00 98.9 94 158/86 (110) 2.0 98.[address] CAP Assessment/Plan Assessment/Plan Assessment: Suspected colon cancer, preoperative CEA 34 Tobacco use Alcohol abuse Hypertension Gout Recommendations: -Counseled pt on the likely diagnosis of colon cancer -I discussed the diagnostic work-up, staging investagations and the role of pathologic staging in determining the management of resected colon cancer -Reviewed CT CAP and discussed the results with the patient -Will follow-up on pathology report -He will be scheduled to see me in clinic in 2 weeks for a follow-up visit. Will plan on repeating CEA at that time in addition to reviewing the results of surgical pathology and discussing the potential role of adjuvant chemotherapy based on the findings. -Continue inpatient care and dispo per Pastor Cheatham and Chris Kessler MD Medical Oncology-Hematology KATHYA KESSLER MD Feb 25, 2020 21:20
[2020-02-25 23:00] VITALS: BP 158/86
[2020-02-26 03:00] VITALS: BP 149/83
[2020-02-26] MEDS: IV RINGERS,LACTATED 1000ML 1,000 ML IV SCH (05:48)
[2020-02-26] MEDS: PIPERACILLIN/TAZOBACTAM 3.375 GM in IV NORMAL SALINE 50ML 50 ML IV SCH ×3 (05:48→18:28)
[2020-02-26 07:00] VITALS: BP 141/76
[2020-02-26] MEDS: ALLOPURINOL 100 MG TABLET. PO SCH (10:06)
[2020-02-26] MEDS: LISINOPRIL 10 MG TABLET PO SCH (10:06)
[2020-02-26 11:00] VITALS: BP 145/77
--- NOTE | 2020-02-26 11:01 | PDOC ---
Date of Service: DATE: 02/26/20 TIME: 10:58 Subjective: Subjective: Has stooled more, says gets to advance diet today and go home tomorrow. Objective: Objective: Reviewed onc note - suspected colon cancer, plans to follow-up as outpt. Vital Signs: Vital Signs Date Time Temp Pulse Resp B/P (MAP) Pulse Ox O2 Delivery O2 Flow Rate FiO2 02/26/20 10:06 83 141/76 02/26/20 07:00 97.6 17 99 Room Air 97.6 02/26/20 03:00 2.0 Labs: GRAM STAIN Final Final NO ORGANISMS SEEN. 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 PE: GEN: NAD LUNGS: CTAB HEART: RRR ABD: S/ND/NT NEURO/PSYCH: A & O 3 A/P: S/p right colon resection for mass, elevated CEA - colonoscopy path as above -- Plans as above. Justicifation of Admission Dx: Justifications for Admission: Justification of Admission Dx: Yes OSVALDO WATERS Feb 26, 2020 11:01
--- NOTE | 2020-02-26 11:08 | PDOC ---
PROGRESS NOTES Date of Service: DATE: 02/26/20 TIME: 11:06 Subjective Subjective hungry want to eat Objective Objective Vital Signs Date Time Temp Pulse Resp B/P (MAP) Pulse Ox O2 Delivery O2 Flow Rate FiO2 02/26/20 10:06 83 141/76 02/26/20 07:00 97.6 17 99 Room Air 97.6 02/26/20 03:00 2.0 Intake and Output 02/26/20 07:00 Intake Total 3333.5 ml Output Total 500 ml Balance 2833.5 ml Intake Oral 460 ml IV Total 2873.5 ml Output Urine Total 500 ml # Voids 2 # Bowel Movements 3 Physical Exam Abdomen: Normal bowel sounds, Soft Heart: Regular rate Extremities: No clubbing General: Alert, Oriented X3 HEENT: Atraumatic, PERRLA Lungs: Clear to auscultation MUSCULOSKELETAL: No joint tenderness Neuro: Normal speech Psych/Mental Status: Mental status NL Skin: No rashes COMMENT foot not red , mild pain Assessment Assessment FINAL IMPRESSION: 1. Right lower quadrant pain. 2. 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 3. Small lesions in the liver, not sure of the etiology. 4. A 10 mm left lung nodule. 5. Hypertension. 6. Gout. PLAN:d/c iv fluids change to po meds ADVANCE DIET ? HOME TOMORROW ONCOLOGY CONSULT APPRECIATED Date: Feb 22, 2020,POD#4 Pre-Op Diagnosis: Colon obstruction, suspect colon cancer Post-Op Diagnosis: same, favor appendiceal cancer Procedure Performed: laparoscopic converted to open right colon resection, removal of umbilical mesh Surgeon: Maximus Perez labs ok IV Zosyn May be able to start on diet Medical oncology consult CEA 35 Comment Review of Relevant I have reviewed the following items baljeet (where applicable) has been applied. Labs Microbiology 02/22/20 Gram Stain - Final, Resulted 02/22/20 Aerobic and Anaerobic Culture - Preliminary, Resulted 02/22/20 Antimicrobic Susceptibility - Preliminary, Resulted Vitals/I & O Vital Sign - Last 24 Hours 02/25/20 02/25/20 02/25/20 02/25/20 15:00 19:00 19:25 20:08 Temp 98.1 98.9 98.1 98.9 Pulse 80 94 Resp 18 18 18 B/P (MAP) 148/88 (108) 158/86 (110) Pulse Ox 99 98 99 O2 Delivery Nasal Cannula Room Air Room Air Room Air O2 Flow Rate 2.0 2.0 02/25/20 02/25/20 02/25/20 02/26/20 22:43 23:00 23:19 03:00 Temp 98.9 98.6 98.9 98.6 Pulse 94 86 Resp 18 18 18 18 B/P (MAP) 158/86 (110) 149/83 (105) Pulse Ox 99 99 99 99 O2 Delivery Room Air Room Air Room Air Room Air O2 Flow Rate 2.0 2.0 02/26/20 02/26/20 07:00 10:06 Temp 97.6 97.6 Pulse 83 83 Resp 17 B/P (MAP) 141/76 (97) 141/76 Pulse Ox 99 O2 Delivery Room Air Intake and Output 02/25/20 02/25/20 02/26/20 15:00 23:00 07:00 Intake Total 2043.5 ml 1290 ml 0 ml Output Total 300 ml 200 ml Balance 2043.5 ml 990 ml -200 ml Justifications for Admission Other Justification Other justification for admit: colon mass with obstruction Nutrition Consultation Dietary Evaluation: Recommendations by RD: Dietary education by RD, Increase Calorie Intake, Protein supplementation Comments: REC resume Ensure clear w/meals once diet advanced per surgery If unable to advance diet within 24 - 48 hrs, recommend consideration of PPN for short-term non-enteral nutrition needs Expected Outcomes/Goals: diet advancement - not met, goal ongoing Interpretation of weight loss: >10% in 6 months Malnutrition Findings: Food and Nutrition Intake (Mod: <75% est energy req 7days Body Fat Depletion (Non Severe: Mild Depletion Weight Status: Obese YANI CORBETT MD Feb 26, 2020 11:08
[2020-02-26 14:58] VITALS: BP 140/78
--- NOTE | 2020-02-26 15:30 | PDOC ---
SURGICAL PROGRESS NOTE DATE: 02/26/20 TIME: 15:29 Subjective Pt reports doing well, hollis PO, passing stools Vital Signs Vital Signs Date Time Temp Pulse Resp B/P (MAP) Pulse Ox O2 Delivery O2 Flow Rate FiO2 02/26/20 14:58 97.7 80 17 140/78 (98) 100 Room Air 97.7 02/26/20 03:00 2.0 I&O Intake and Output 02/26/20 07:00 Intake Total 3333.5 ml Output Total 500 ml Balance 2833.5 ml Intake Oral 460 ml IV Total 2873.5 ml Output Urine Total 500 ml # Voids 2 # Bowel Movements 3 General: Alert, Oriented X3, Cooperative, No acute distress Abdomen: Soft, No tenderness, Other (dressing intact inferiorly) Problem List s/p right colon ADAT will d/c candy drain prior to d/c OK to d/c home in AM Justicifation of Admission Dx: Justifications for Admission: Justification of Admission Dx: Yes IRINA CEDILLO MD Feb 26, 2020 15:30
[2020-02-26] MEDS: ENOXAPARIN 40 MG/0.4 ML SYRINGE. SQ SCH (15:45)
[2020-02-26] MEDS ORDERED: CEFD300C PO (16:21)
[2020-02-26] MEDS ORDERED: HYDR-2767 PO (16:22)
--- NOTE | 2020-02-26 17:37 | NUR ---
SHIRAZ following. Spoke with RN and reviewed chart. Plan remains discharge home self-care on oral medications. Pt will likely discharge tomorrow per Dr. Cheatham. No anticipated SW needs. Addendum: 02/26/20 at 1738 by NORBERT WELDON Family in the room and stating no SW needs.
[2020-02-26 19:00] VITALS: BP 161/81
[2020-02-26] MEDS: CEFDINIR 300 MG CAPSULE PO SCH (20:47)
[2020-02-26] MEDS: ZOLPIDEM 5 MG TABLET. PO PRN (20:47)
[2020-02-26 23:00] VITALS: BP 159/79
[2020-02-27] MEDS: HYDROcodon/APAP 7.5/325MG ORAL 15 ML SOLUTION PO PRN (01:44)
[2020-02-27 03:00] VITALS: BP 136/58
[2020-02-27 07:00] VITALS: BP 142/73
[2020-02-27] MEDS: ALLOPURINOL 100 MG TABLET. PO SCH (08:41)
[2020-02-27] MEDS: CEFDINIR 300 MG CAPSULE PO SCH (08:41)
[2020-02-27] MEDS: LISINOPRIL 10 MG TABLET PO SCH (08:42)
--- NOTE | 2020-02-27 08:54 | PDOC ---
PROGRESS NOTES Date of Service: DATE: 02/27/20 TIME: 08:52 Subjective Subjective ready to go home Objective Objective Vital Signs Date Time Temp Pulse Resp B/P (MAP) Pulse Ox O2 Delivery O2 Flow Rate FiO2 02/27/20 08:42 91 136/58 02/27/20 03:00 99.0 18 97 Room Air 2.0 99.0 Intake and Output 02/27/20 07:00 Intake Total 1250 ml Balance 1250 ml Intake Oral 1200 ml IV Total 50 ml # Voids 3 # Bowel Movements 1 Physical Exam Abdomen: Soft, No tenderness, Other (dressing intact inferiorly) Heart: Regular rate Extremities: No clubbing General: Alert, Oriented X3, Cooperative, No acute distress HEENT: Atraumatic, PERRLA Lungs: Clear to auscultation MUSCULOSKELETAL: No joint tenderness Neuro: Normal speech Psych/Mental Status: Mental status NL Skin: No rashes Assessment Assessment FINAL IMPRESSION: 1. Right lower quadrant pain. 2. 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 3. Small lesions in the liver, not sure of the etiology. 4. A 10 mm left lung nodule. 5. Hypertension. 6. Gout. PLAN:d/c home today Cefdidnir for 5 days Page for pain tolerating regular diet ONCOLOGY CONSULT APPRECIATED Date: Feb 22, 2020,POD#5 Pre-Op Diagnosis: Colon obstruction, suspect colon cancer Post-Op Diagnosis: same, favor appendiceal cancer Procedure Performed: laparoscopic converted to open right colon resection, removal of umbilical mesh Surgeon: Maximus Perez labs ok IV Zosyn May be able to start on diet Medical oncology consult CEA 35 Comment Review of Relevant I have reviewed the following items baljeet (where applicable) has been applied. Labs Microbiology 02/22/20 Gram Stain - Final, Resulted 02/22/20 Aerobic and Anaerobic Culture - Preliminary, Resulted 02/22/20 Antimicrobic Susceptibility - Preliminary, Resulted Medications Current Medications Cefdinir (Omnicef) 300 mg BID PO Last administered on 02/27/20at 08:41; Start 02/26/20 at 21:00 Vitals/I & O Vital Sign - Last 24 Hours 02/26/20 02/26/20 02/26/20 02/26/20 10:06 11:00 14:58 19:00 Temp 97.7 97.7 99.0 97.7 97.7 99.0 Pulse 83 81 80 95 Resp 17 17 18 B/P (MAP) 141/76 145/77 (99) 140/78 (98) 161/81 (107) Pulse Ox 100 100 98 O2 Delivery Room Air Room Air Room Air 02/26/20 02/26/20 02/27/20 02/27/20 19:05 23:00 01:44 02:40 Temp 99.5 99.5 Pulse 94 Resp 18 17 17 B/P (MAP) 159/79 (105) Pulse Ox 98 O2 Delivery Room Air Room Air Room Air Room Air O2 Flow Rate 2.0 02/27/20 02/27/20 03:00 08:42 Temp 99.0 99.0 Pulse 91 91 Resp 18 B/P (MAP) 136/58 (84) 136/58 Pulse Ox 97 O2 Delivery Room Air O2 Flow Rate 2.0 Intake and Output 02/26/20 02/26/20 02/27/20 15:00 23:00 07:00 Intake Total 600 ml 350 ml 300 ml Balance 600 ml 350 ml 300 ml Justifications for Admission Other Justification Other justification for admit: colon mass with obstruction Nutrition Consultation Dietary Evaluation: Recommendations by RD: Dietary education by RD, Increase Calorie Intake, Protein supplementation Comments: REC continue advancing diet as able/appropriate, goal diet cardiac w/textures per pt preference REC Ensure (strawberry) w/dinner or more often pending pt preference Expected Outcomes/Goals: diet advancement - met, new goal established New goal 02/25: PO intake to meet >75% est needs Interpretation of weight loss: >10% in 6 months Malnutrition Findings: Food and Nutrition Intake (Mod: <75% est energy req 7days Body Fat Depletion (Non Severe: Mild Depletion Weight Status: Obese YANI CORBETT MD Feb 27, 2020 08:54
--- NOTE | 2020-02-27 09:44 | NUR ---
SW following. Spoke with RN and reviewed chart. Pt to discharge home today self-care. No SW needs at this time.
[2020-02-27 11:00] VITALS: BP 158/72
--- NOTE | 2020-02-27 11:17 | PDOC ---
Date of Service: DATE: 02/27/20 TIME: 11:15 Subjective: Subjective: Waiting for drain removal, says we're probably taking our time to be paid for the whole day. Objective: Vital Signs: Vital Signs Date Time Temp Pulse Resp B/P (MAP) Pulse Ox O2 Delivery O2 Flow Rate FiO2 02/27/20 08:42 91 136/58 02/27/20 08:00 Room Air 02/27/20 07:00 97.6 18 97 97.6 02/27/20 03:00 2.0 PE: GEN: NAD LUNGS: CTAB HEART: RRR ABD: S/ND/NT NEURO/PSYCH: A & O 3 A/P: S/p right colon resection for mass - colonoscopy path w/ TVA w/ HGD -- Dc per primary, follow-up w/ oncology as planned. Justicifation of Admission Dx: Justifications for Admission: Justification of Admission Dx: Yes OSVALDO WATERS Feb 27, 2020 11:17
--- NOTE | 2020-02-28 14:49 | PDOC ---
Provider Note Provider Note Discharge summary dictated.#[id number]. Justifications for Admission Other Justification colon mass with obstruction YANI CORBETT MD Feb 28, 2020 14:49
--- NOTE | 2020-02-28 15:16 | DS ---
DATE OF DISCHARGE: 02/27/2020 REASON FOR ADMISSION TO THE HOSPITAL: Right lower abdominal pain secondary to a mass in the cecum. CONSULTATIONS: 1. Dr. Perez. 2. Dr. Serrano. 3. Oncology, Dr. Po Torres. PROCEDURES DONE: 1. Colonoscopy with biopsy. 2. Right colon resection and removal of umbilical mesh. HOSPITAL COURSE: The patient is a 79-year-old male. The patient was having pain in the right lower abdomen for a couple of weeks. Had a CT scan, shows a large 8 cm mass around the region of the cecum. The patient had a colonoscopy, which shows a mass in the cecum, which is kind of obstructing and biopsy shows villous adenoma with possible adenocarcinoma. The patient was seen by Surgery. The patient underwent right colon resection and removal of umbilical mesh. There was small perforation in the pelvic area. Postoperatively, the patient did well, was started on diet after 3 days, tolerating that. He had a gout flareup while in the hospital, was treated with prednisone and on the whole, the patient was improving, was seen by Oncology for adjuvant chemo down the road. Final pathology is still pending. FINAL DIAGNOSES: 1. 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 The patient underwent right hemicolectomy. 2. Hypertension. 3. Hyperlipidemia. 4. Gout. DISCHARGE MEDICATIONS: See MAR for discharge medications. YANI CORBETT MD DR: MAYELIN/marya JOB#: [id number] / [id number]
--- NOTE | 2020-03-10 12:06 | PATHOLOGY ---
[facility] Accession Number: [id number] . 01 Material submitted: . PART A: umbilicus - UMBILICAL MASS PART B: abdomen - OMENTAL MASS PART C: small bowel - SMALL BOWEL MESENTERIC MASS PART D: abdomen - ADHESIONAL SIDEWALL PART E: colon - RICHT COLON. Modifiers: right . 01 Clinical history: . COLON MASS . 02 Diagnosis: A. Soft tissue "umbilical mass", excision: - Mesothelial covered fibroadipose tissue with mild chronic inflammation, surrounding a piece of mesh (foreign material). - Negative for malignancy. . B. Soft tissue "omental mass", excision: - Adipose tissue demonstrating fat necrosis, dystrophic calcification, and chronic inflammation. - Negative for malignancy. . C. Small bowel "mesenteric mass", biopsy: - Nodular segment of fibrous tissue, with surrounding adipose tissue with mild chronic inflammation. - Negative for malignancy. . D. Soft tissue "adhesion - ulcer", biopsy: - Mesenteric fibroadipose tissue, with marked acute and chronic inflammation. - Negative for malignancy. . E. Terminal ileum, cecum, appendix and right colon; right hemicolectomy: - INVASIVE ADENOCARCINOMA, MODERATELY DIFFERENTIATED, WITH A PROMINENT MUCINOUS COMPONENT INVOLVING THE CECUM AT THE APPENDICEAL BASE. - Forming a 3.1 x 2.7 cm mass surrouding the appendiceal base, and extending into the proximal aspect of the appendix. - Tumor extends through the muscularis propria into subserosal adipose tissue. - Margins negative. - Please see cancer case summary below. . Lymph nodes "mesenteric (16)", excision: - Negative for metastatic carcinoma. . Vermiform appendix, excision: - Extension of cecal adenocarcinoma into base of appendix. - Marked acute appendicitis, with acute transmural inflammation, rupture, marked acute serositis, and focal adhesion to adjacent to distal ileum, occurring distal to area of tumor extension into appendix. - Please see comment. . SURGICAL PATHOLOGY CANCER CASE SUMMARY (PRIMARY CARCINOMA OF THE COLON) Procedure - Right hemicolectomy . Tumor Site - Cecum/appendiceal orfice. . Tumor Size - 3.1 x 2.7 cm . Macroscopic Tumor Perforation - Not identified . Histologic Type - Adenocarcinoma . Histologic Grade - Moderately differentiated (G2) . Tumor Extension - Tumor invades through the muscularis propria into pericolonic tissue . Margins - All margins are uninvolved by invasive carcinoma and high grade dysplasia . Tumor 9.4 cm from proximal (small bowel) margin . Tumor 9.4 cm from distal (colonic) margin . Treatment Effect - No known presurgical therapy . Lymphovascular Invasion - Present focally . Perineural Invasion - Not identified . Tumor Deposits - None identified . Regional Lymph Nodes Number of Lymph Nodes Involved - 0 . Number of Lymph Nodes Examined - 16 . Additional pathologic findings - Marked acute appendicitis with transmural inflammation, acute serositis, consitent with rupture, and adhesion to adjacent distal ileum; area of rupture is distal to extension of tumor into the base of the appendix. . Pathologic Stage Classification (pTNM, AJCC 8th Edition) . Primary Tumor (pT) - pT3 (Tumor invades through the muscularis propria into pericolorectal tissues) . Regional Lymph Nodes (pN) - pN0 (No regional lymph node metastasis) (GRAHAMK/kay; 03/03/2020) LB 03/10/2020 1127 Local . 02 Comment: . . 02 Electronically signed: . Leonidas Valenzuela MD, Pathologist NPI- [id number] . 01 Gross description: . A. The specimen is received in formalin, labeled "Shola Rodriguez, umbilical mass". Received is a segment of yellow-cutler fibroadipose tissue measuring 6.3 x 5.2 x 2.3 cm in greatest dimensions. The surgical margin is inked. Sectioning reveals a segment of mesh-like material measuring 4.3 x 4.1 cm surrounded by bright yellow lobulated tissue. No distinct nodules or lesions are noted grossly. The specimen is spitted representatively in cassettes A1 and A2. A gross photograph is taken. . B. The specimen is received in formalin, labeled "Shola Michael, omental mass". Received is a segment of pink-cutler tissue measuring 1.3 x 1.3 x 0.8 cm in greatest dimensions. Sectioning reveals light brown, necrotic-appearing cut surfaces. The specimen is bisected and entirely submitted in cassette B1. . C. The specimen is received in formalin, labeled "Shola Rodriguez, small bowel mesenteric mass". Received are two segments of pale cutler tissue measuring 0.3 and 0.5 cm in maximum dimensions. The specimen is submitted entirely in cassette C1. . D. The specimen is received in formalin, labeled "Shola Rodriguez, adhesion ulcer". Received is a segment of pink-cutler fibromembranous tissue with attached fibroadipose tissue measuring 4.3 x 1.2 x 1.0 cm in greatest dimensions. Sectioning reveals white-cutler to yellow-cutler cut surfaces throughout. The specimen is submitted representatively in cassette D1. . E. The specimen is received in formalin, labeled "Shola Rodriguez, right colon". Received is a right hemicolectomy consisting of a segment of small bowel measuring 8.3 cm in length by 2.1 cm in diameter contiguous with a segment of colon measuring 12.3 cm in length and ranges in diameter from 3.5 to 6.2 cm. Both margins are stapled closed. The serosal surface of the small bowel is pink-cutler and smooth in appearance. The colon is predominantly fat wrapped with a slight amount of exposed pink-hudson, roughened serosa. The attached pericolic fat measures up to 6.1 cm in thickness. The mesenteric margin is inked orange. The specimen is opened along the antimesenteric line to reveal light cutler mucosa with normal architectural folds within the small bowel. The ileocecal valve is pale cutler and slightly lipomatous in appearance. 1.1 cm adjacent to the ileocecal valve within the cecal pouch, there is a well-circumscribed, light cutler polypoid mass measuring 3.1 x 2.7 cm, which is 9.4 cm from the proximal margin and 9.4 cm from the distal margin. The appendix is present measuring approximately 6.5 cm in length by up to 1.9 cm in diameter. The tumor appears to surround the appendiceal orifice as it is probed to a depth of 6.5 cm. The opposing serosal surface is inked black. Sectioning reveals the mass to grossly extend down into the appendix up to 1.6 cm. Sectioning reveals the mass to possibly extend through the muscularis propria displaying fibrotic cut surfaces, and appears to grossly approach the inked serosal surface. The maximum depth of invasion is 2.1 cm. The cut surfaces of the mass are pale cutler, friable to mucinous in appearance. Sectioning also reveals the colon to be adhesed onto the small bowel, however, tumor invasion does not appear to extend into the small bowel. The remainder of the colonic mucosa is light cutler in appearance with normal architectural folds. 2.7 cm distal to the mass, a moderate amount of tattooing is identified. No additional nodules or lesions are noted grossly. Sectioning. 10 pericolic fat reveals 10 readily identifiable lymph nodes ranging in size from 0.5 to 1.2 cm in maximum dimensions. The specimen is placed into a lymph node enhancement solution. The specimen is submitted representatively as follows: . E1 proximal margin, en face E2 distal margin, en face E3 perpendicular section through mesenteric margin E4-E5 tax compliance representative sections of fibrotic cut surfaces to show possible extension through muscular is propria to inked serosal surface E6-E7 tax compliance representative sections of mass to show relationship with appendiceal orifice E8-E9 additional tax compliance representative sections of mass E10 tax compliance representative section to show adhesion between colon and small bowel E11 tax compliance representative section of mass to show adhesion of colon and small bowel with colonic tumor present E12-E13 horizontal cross-sections of the appendiceal tip E14 small bowel mucosa E15 ileocecal valve E16 colonic mucosa with tattooing E17 uninvolved colonic mucosa E18 intact lymph nodes E19 single intact lymph node at mesenteric margin (orange ink) E20-E21 one bisected lymph node in each cassette E22 one bisected lymph node at mesenteric margin E23 one bisected lymph node. . Gross photographs are taken. . After additional fixation in a lymph node enhancement solution, further sectioning through the pericolic fat reveals 5 additional possible lymph nodes ranging in size from 0.1 to 0.4 cm in maximum dimensions. The possible lymph nodes are submitted intact in cassette E24. (CAA; 02/25/2020) QA/QAC 03/04/2020 1708 Local . 02 Microscopic: . Special stain results (blocks B1 and C1) Congo red - Negative for amyloid . 02 Pathologist provided ICD-10: C18.2, K66.8, I96, K65.8 . 02 CPT . 781039, [id number], 165530, 914400, 107568, 090421, 848110 Specimen Comment: A courtesy copy of this report has been sent to [phone], [phone] Specimen Comment: [id number] Specimen Comment: Report sent to / DR CORBETT Performed at: 01 [facility] [address] [id number] MD Cody Pham MD Phone: [phone] Performed at: 02 [facility] [address] [id number] MD Yoav Hairston MD Phone: [phone]
== END 2020-02-27 14:30 | disposition home or self-care (01) | DRG 329 ==
LOC: 5 NORTH 13:45
PROVIDERS: ADMIT Internal Medicine; ATTEND Internal Medicine
PROC: 0DBL8ZX Excision of Transverse Colon, Via Natural or Artificial Opening Endoscopic, Diagnostic (ICD-10-PCS; 2020-02-21)
PROC: 0DTF0ZZ Resection of Right Large Intestine, Open Approach (ICD-10-PCS; 2020-02-22)
PROC: 0WPF0JZ Removal of Synthetic Substitute from Abdominal Wall, Open Approach (ICD-10-PCS; 2020-02-22)
PROC: 0DBB4ZZ Excision of Ileum, Percutaneous Endoscopic Approach (ICD-10-PCS; 2020-02-22)
PROC: 0DJD4ZZ Inspection of Lower Intestinal Tract, Percutaneous Endoscopic Approach (ICD-10-PCS; principal; 2020-02-22 08:00)
DX: C18.1 Malignant neoplasm of appendix (principal); K63.1 Perforation of intestine (nontraumatic); K35.32 Acute appendicitis with perforation, localized peritonitis, and gangrene, without abscess; E44.0 Moderate protein-calorie malnutrition; K63.89 Other specified diseases of intestine; M10.9 Gout, unspecified; Z68.30 Body mass index [BMI] 30.0-30.9, adult; D64.9 Anemia, unspecified; E78.5 Hyperlipidemia, unspecified; F10.10 Alcohol abuse, uncomplicated; F17.210 Nicotine dependence, cigarettes, uncomplicated; I12.9 Hypertensive chronic kidney disease with stage 1 through stage 4 chronic kidney disease, or unspecified chronic kidney disease; K57.90 Diverticulosis of intestine, part unspecified, without perforation or abscess without bleeding; K64.8 Other hemorrhoids; K66.0 Peritoneal adhesions (postprocedural) (postinfection); N18.9 Chronic kidney disease, unspecified; Z20.828 Contact with and (suspected) exposure to other viral communicable diseases; Z53.31 Laparoscopic surgical procedure converted to open procedure; Z82.49 Family history of ischemic heart disease and other diseases of the circulatory system; M19.90 Unspecified osteoarthritis, unspecified site
CPT/HCPCS: 36415; 45380; 45381; 71046; 71260; 74018; 74183; 80048; 80053; 82378; 83540; 83550; 85025; 85610; 87071; 87075; 87077; 87186; 87426; 88304; 88305; 88309; 88313; A7015; A9575; J0694; J1100; J1650; J2270; J2370; J2405; J2543; J2704; J2710; J2920; J3010; J3490; J7030; J7042; J7120; Q9967; Q9968; G0378; Q0163; U0003-CS

== ENCOUNTER → 2020-03-18 | Outpatient (CLI) | payer MEDICARE ==
[2020-02-27 11:00] VITALS: BP 158/72
[~2020-03-18] MED LIST changes: +CEFD300C PO; +HYDR-2767 PO
[2020-03-18 13:26] LABS: BASO # 0.1 x10^3/uL (0.0-0.2); BASO % 1 % (0-3); EOS # 0.3 x10^3/uL (0.0-0.7); EOS % 6 % (0-3); HEMATOCRIT 33.8 % (39.0-53.0); HEMOGLOBIN 11.3 g/dL (13.0-17.5); LYMPH % 18 % (24-48); MEAN CORPUSCULAR HEMOGLOBIN 32 pg (25-35); MEAN CORPUSCULAR HGB CONC 33 g/dL (31-37); MEAN CORPUSCULAR VOLUME 95 fL (79-100); MONO # 0.5 x10^3/uL (0.0-1.1); MONO % 9 % (0-9); NEUT # 3.5 x10^3/uL (1.8-7.7); NEUT % 65 % (31-73); PLATELET COUNT 277 x10^3/uL (140-400); RED BLOOD COUNT 3.56 x10^6/uL (4.30-5.70); WHITE BLOOD COUNT 5.4 x10^3/uL (4.0-11.0)
[2020-03-18 14:10] LABS: ALBUMIN 3.5 g/dL (3.4-5.0); ALBUMIN/GLOBULIN RATIO 0.9 (1.0-1.7); CALCIUM 9.3 mg/dL (8.5-10.1); POTASSIUM 4.9 mmol/L (3.5-5.1); TOTAL PROTEIN 7.4 g/dL (6.4-8.2)
[2020-03-18 14:22] LABS: CREATININE 1.3 mg/dL (0.7-1.3); GFR 64.6; TOTAL BILIRUBIN 0.3 mg/dL (0.2-1.0)
== END | disposition home or self-care (01) ==
LOC: ONCLAB 13:08
PROVIDERS: ATTEND Internal Medicine Hematology & Oncology
DX: R93.3 Abnormal findings on diagnostic imaging of other parts of digestive tract (principal)
CPT/HCPCS: 36415; 80053; 82378; 85025

== ENCOUNTER → 2020-06-08 | Outpatient (CLI) | payer MEDICARE ==
[~2020-06-08] MED LIST changes: +IOHEXOL 240 MG/ML 50ML VIAL. PO ONE; +IOHEXOL 300 MG/ML 100ML VIAL. IV ONE
--- NOTE | 2020-06-08 17:08 | RAD ---
PQRS Compliance Statement: One or more of the following individualized dose reduction techniques were utilized for this examination: 1. Automated exposure control 2. Adjustment of the mA and/or kV according to patient size 3. Use of iterative reconstruction technique CT CHEST ABD PELVIS W/CONTRAST 06/08/2020 1:00 PM INDICATION: Colon cancer; restaging COMPARISON: CT abdomen/pelvis 02/11/2020, MRI abdomen 02/19/2020 TECHNIQUE: Multiple axial CT images of the chest, abdomen and pelvis were obtained after the intravenous administration of 75 mL Omnipaque 300. Coronal and sagittal reformats are provided. FINDINGS: Thyroid gland is normal in appearance. Calcified right hilar lymph nodes suggestive of sequela prior granulomatous exposure. Size is within normal limits. No pericardial effusion. Thoracic aorta is normal in course and caliber. No pathologically enlarged thoracic lymph nodes. There is a 6 mm calcified granuloma in the anterior right lower lobe. No suspicious solid noncalcified pulmonary nodules. Mild centrilobular pulmonary emphysema noted at the lung apices. No pleural effusions, pulmonary vascular congestion or pneumothorax. There is focal calcification identified deep to the left pectoralis major muscle measuring 9 mm, nonspecific and possibly associated with heterotopic ossification. Similar groundglass change in the medial anterior left upper lobe without solid component. Simple appearing hepatic cysts are identified measuring up to 2.6 cm in the lateral segment left hepatic lobe, segment II. No new or enlarging hepatic lesions are identified. This focal fatty infiltration along the fissure of ligamentum teres. Gallbladder is normal in appearance. Portal venous system is widely patent. Spleen, bilateral adrenal glands and pancreas are normal in appearance. There is moderate calcified atheromatous plaque involving the abdominal aorta. No pathologically enlarged lymph nodes are identified in the abdomen and pelvis. There is no free fluid or free intraperitoneal air. Simple appearing bilateral renal cortical cysts are identified without significant interval change. No new or suspicious renal lesion is identified. No hydronephrosis. Urinary bladder is within normal limits given degree of distention. Prostate and seminal vesicles are normal. Surgical clips are identified along the seminal vesicles. There is circumferential wall thickening involving the lower rectum with hazy attenuation in the mesorectal fat. Presacral edema is identified. Consideration may be given for proctitis. Mild colonic diverticulosis. Previously seen cecal mass is not visualized. Right hemicolectomy changes are present without local residual or recurrent disease. No suspicious omental nodule. No suspicious osseous abnormality is identified. Grade 1 anterolisthesis of L4 on L5 with moderate bilateral neuroforaminal stenosis. IMPRESSION: 1. Right hemicolectomy changes are present without local residual or recurrent disease. 2. Circumferential wall thickening involving the lower rectum with hazy attenuation in the mesorectal fat. Consideration may be given for proctitis. 3. No evidence for metastatic disease involving the chest, abdomen and pelvis. Previously seen 10 mm groundglass nodular opacity identified in the medial left upper lobe anteriorly without significant change. Appearance favors scarring or atelectasis. Electronically signed by: Heaven Shaw MD (06/08/2020 5:05 PM) [facility]
== END ==
LOC: CT 11:46
PROVIDERS: ATTEND Internal Medicine Hematology & Oncology
DX: C18.0 Malignant neoplasm of cecum (principal); J43.2 Centrilobular emphysema; K76.89 Other specified diseases of liver; I70.0 Atherosclerosis of aorta; M43.16 Spondylolisthesis, lumbar region; M48.061 Spinal stenosis, lumbar region without neurogenic claudication; K57.30 Diverticulosis of large intestine without perforation or abscess without bleeding; R93.3 Abnormal findings on diagnostic imaging of other parts of digestive tract
CPT/HCPCS: 71260; 74177; Q9966; Q9967

== ENCOUNTER → 2020-06-17 | Outpatient (CLI) | payer MEDICARE ==
[~2020-06-17] MED LIST changes: -IOHEXOL 240 MG/ML 50ML VIAL. PO ONE; -IOHEXOL 300 MG/ML 100ML VIAL. IV ONE
[2020-06-17 12:39] LABS: BASO % 1 % (0-3); EOS # 0.2 x10^3/uL (0.0-0.7); EOS % 4 % (0-3); HEMATOCRIT 34.2 % (39.0-53.0); HEMOGLOBIN 11.8 g/dL (13.0-17.5); LYMPH # 0.7 x10^3/uL (1.0-4.8); LYMPH % 14 % (24-48); MEAN CORPUSCULAR HEMOGLOBIN 35 pg (25-35); MEAN CORPUSCULAR HGB CONC 34 g/dL (31-37); MEAN CORPUSCULAR VOLUME 101 fL (79-100); MONO # 0.6 x10^3/uL (0.0-1.1); MONO % 11 % (0-9); NEUT # 3.7 x10^3/uL (1.8-7.7); NEUT % 71 % (31-73); PLATELET COUNT 184 x10^3/uL (140-400); RED BLOOD COUNT 3.39 x10^6/uL (4.30-5.70); RED CELL DISTRIBUTION WIDTH 13.6 % (11.5-14.5); WHITE BLOOD COUNT 5.2 x10^3/uL (4.0-11.0)
[2020-06-17 12:57] LABS: CALCIUM 8.9 mg/dL (8.5-10.1); CREATININE 0.9 mg/dL (0.7-1.3); GFR 98.5; POTASSIUM 3.8 mmol/L (3.5-5.1)
[2020-06-17 13:03] LABS: ALBUMIN 3.4 g/dL (3.4-5.0); TOTAL BILIRUBIN 0.5 mg/dL (0.2-1.0); TOTAL PROTEIN 6.7 g/dL (6.4-8.2)
== END ==
LOC: ONCLAB 12:23
PROVIDERS: ATTEND Internal Medicine Hematology & Oncology
DX: C18.0 Malignant neoplasm of cecum (principal)
CPT/HCPCS: 36415; 80053; 82378; 82728; 83540; 83550; 85025

== ENCOUNTER → 2020-09-15 | Outpatient (CLI) | payer MEDICARE ==
[~2020-09-15] MED LIST changes: -LISI-334 PO; +LISI20TA18 PO
[2020-09-15 13:08] LABS: BASO % 1 % (0-3); EOS # 0.2 x10^3/uL (0.0-0.7); EOS % 5 % (0-3); HEMATOCRIT 36.6 % (39.0-53.0); HEMOGLOBIN 12.7 g/dL (13.0-17.5); LYMPH % 27 % (24-48); MEAN CORPUSCULAR HEMOGLOBIN 35 pg (25-35); MEAN CORPUSCULAR HGB CONC 35 g/dL (31-37); MEAN CORPUSCULAR VOLUME 100 fL (79-100); MONO # 0.4 x10^3/uL (0.0-1.1); MONO % 12 % (0-9); NEUT # 2.1 x10^3/uL (1.8-7.7); NEUT % 56 % (31-73); PLATELET COUNT 198 x10^3/uL (140-400); RED BLOOD COUNT 3.65 x10^6/uL (4.30-5.70); RED CELL DISTRIBUTION WIDTH 14.2 % (11.5-14.5); WHITE BLOOD COUNT 3.7 x10^3/uL (4.0-11.0)
[2020-09-15 13:20] LABS: CALCIUM 8.6 mg/dL (8.5-10.1); CREATININE 1.2 mg/dL (0.7-1.3); GFR 70.7; POTASSIUM 4.1 mmol/L (3.5-5.1)
[2020-09-15 13:25] LABS: ALBUMIN 3.5 g/dL (3.4-5.0); TOTAL BILIRUBIN 0.6 mg/dL (0.2-1.0); TOTAL PROTEIN 7.1 g/dL (6.4-8.2)
== END ==
LOC: ONCLAB 12:51
PROVIDERS: ATTEND Internal Medicine Hematology & Oncology
DX: C18.0 Malignant neoplasm of cecum (principal)
CPT/HCPCS: 80053; 82378; 85025

== ENCOUNTER → 2021-02-03 | Outpatient (CLI) | payer MEDICARE ==
[2021-02-03 14:50] LABS: BASO % 1 % (0-3); EOS # 0.2 x10^3/uL (0.0-0.7); EOS % 6 % (0-3); HEMATOCRIT 37.1 % (39.0-53.0); HEMOGLOBIN 12.6 g/dL (13.0-17.5); LYMPH # 0.7 x10^3/uL (1.0-4.8); LYMPH % 25 % (24-48); MEAN CORPUSCULAR HEMOGLOBIN 36 pg (25-35); MEAN CORPUSCULAR HGB CONC 34 g/dL (31-37); MEAN CORPUSCULAR VOLUME 104 fL (79-100); MONO # 0.4 x10^3/uL (0.0-1.1); MONO % 14 % (0-9); NEUT # 1.6 x10^3/uL (1.8-7.7); NEUT % 54 % (31-73); PLATELET COUNT 201 x10^3/uL (140-400); RED BLOOD COUNT 3.56 x10^6/uL (4.30-5.70); WHITE BLOOD COUNT 2.9 x10^3/uL (4.0-11.0)
[2021-02-03 15:09] LABS: CALCIUM 9.5 mg/dL (8.5-10.1); CREATININE 1.1 mg/dL (0.7-1.3); GFR 78.1; POTASSIUM 5.2 mmol/L (3.5-5.1)
[2021-02-03 15:15] LABS: ALBUMIN 3.6 g/dL (3.4-5.0); TOTAL BILIRUBIN 0.4 mg/dL (0.2-1.0); TOTAL PROTEIN 7.1 g/dL (6.4-8.2)
== END ==
LOC: ONCLAB 14:13
PROVIDERS: ATTEND Internal Medicine Hematology & Oncology
DX: C18.0 Malignant neoplasm of cecum (principal)
CPT/HCPCS: 36415; 80053; 82378; 85025

== ENCOUNTER 2021-03-10 11:26 | Emergency (ER) | payer MEDICARE ==
[~2021-03-10] VITALS: Ht 170.2 cm; Wt 82.0 kg
--- NOTE | 2021-03-10 12:45 | RAD ---
EXAM: XR FOOT_RIGHT 3 VIEWS 03/10/2021 12:04 PM CLINICAL INDICATION: Stubbed great toe on something, pain and bleeding COMPARISON: None TECHNIQUE: 3 views of the right foot FINDINGS: No acute fracture. There is hallux valgus and moderate joint space narrowing of the great toe MTP joint with small osteophytes. Degenerative changes of the great toe sesamoids. Small dorsal o steophytes in the midfoot. There is a soft tissue bunion at the great toe MTP joint. IMPRESSION: 1. No acute osseous abnormality. 2. 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 Electronically signed by: Shannon Hayward MD (03/10/2021 12:42 PM) [id number]
--- NOTE | 2021-03-10 13:04 | PHYS DOC ---
Past Medical History Past Medical History: Hypertension Additional Past Medical Histor: GOUT, ABDOMINAL AND UMBILICAL HERNIA Past Surgical History: Other Additional Past Surgical Histo: VASECTOMY, HERNIA REPAIR Smoking Status: Current Every Day Smoker Alcohol Use: Heavy Drug Use: None General Adult EDM: Chief Complaint: TOE PROBLEM HPI: HPI: Patient is a 80 year old male with history of hypertension who presents to the ED today complaining of an abrasion on the right great toe that he sustained last night. Patient states he does not know what he stubbed his toe on. He states "there could be something in the toe" Review of Systems: Review of Systems: Constitutional: Denies fever or chills. [] Musculoskeletal: Denies back pain or joint pain. [] Integument: Reports right great toe abrasion Neurologic: Denies headache, focal weakness or sensory changes. [] Psychiatric: Denies depression or anxiety. [] Heart Score: C/O Chest Pain: N/A Risk Factors: Risk Factors: DM, Current or recent (<one month) smoker, HTN, HLP, family history of CAD, obesity. Risk Scores: Score 0 - 3: 2.5% MACE over next 6 weeks - Discharge Home Score 4 - 6: 20.3% MACE over next 6 weeks - Admit for Clinical Observation Score 7 - 10: 72.7% MACE over next 6 weeks - Early Invasive Strategies Allergies: Allergies: Allergies Coded Allergies Type Severity Reaction Last Updated Verified No Known Drug Allergies 02/21/20 No Physical Exam: PE: Constitutional: Well developed, well nourished, no acute distress, non-toxic appearance. [] Skin: Warm, dry, no erythema, no rash. [] Back: No tenderness, no CVA tenderness. [] Extremities: Right great toe with a tiny abrasion on the lateral aspect of the external. There is no active bleeding. Range of motion is intact to the right foot and toes. +2 right pedal pulse. Cap refill less than 2 seconds to right toes. Sensation intact Neurologic: Alert and oriented X 3, normal motor function, normal sensory function, no focal deficits noted. [] Psychologic: Affect normal, judgement normal, mood normal. [] Current Patient Data: Vital Signs: Vital Signs Date Time Temp Pulse Resp B/P (MAP) Pulse Ox O2 Delivery O2 Flow Rate FiO2 03/10/21 11:37 98.7 93 16 162/79 (100) 98 Room Air 98.7 EKG: EKG: [] Radiology/Procedures: Radiology/Procedures: []PROCEDURE: FOOT RIGHT 3V EXAM: XR FOOT_RIGHT 3 VIEWS 03/10/2021 12:04 PM CLINICAL INDICATION: Stubbed great toe on something, pain and bleeding COMPARISON: None TECHNIQUE: 3 views of the right foot FINDINGS: No acute fracture. There is hallux valgus and moderate joint space narrowing of the great toe MTP joint with small osteophytes. Degenerative changes of the great toe sesamoids. Small dorsal osteophytes in the midfoot. There is a soft tissue bunion at the great toe MTP joint. IMPRESSION: 1. No acute osseous abnormality. 2. 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 Electronically signed by: Shannon Hayward MD (03/10/2021 12:42 PM) [id number] DICTATED and SIGNED BY: SHANNON HAYWARD MD DATE: 03/10/21 [id number] 0 Course & Med Decision Making: Course & Med Decision Making Pertinent Labs and Imaging studies reviewed. (See chart for details) This is a 80-year-old male patient presenting to the ED today with a tiny abrasion on the right great toe. Patient was concerned something is in the toe. Right foot x-rays are negative for any acute findings. Tetanus is up-to-date. Discharged home. Wound care instructions and return precautions provided Savana Disclaimer: Savana Disclaimer: This electronic medical record was generated, in whole or in part, using a voice recognition dictation system. Departure Departure Impression: Primary Impression: Toe abrasion Qualified Codes: S90.414A - Abrasion, right lesser toe(s), initial encounter Disposition: HOME / SELF CARE / HOMELESS Condition: STABLE Referrals: YANI CORBETT MD (PCP) follow up with your doctor in 1-2 weeks Patient Instructions: Abrasions Additional Instructions: You have an abrasion to the right great toe. Keep the area clean and dry. Apply Neosporin to the abrasion twice a day for 7 days. Follow-up with your primary care doctor in 1 to 2 weeks. Please return to the ED at any point wound condition worsens. DARREL DIM[employer]INTENA[employer]CE TECHNICIAN Mar 10, 2021 13:04
[2021-03-10 13:06] VITALS: BP 152/87
== END 2021-03-10 13:06 | disposition home or self-care (01) ==
LOC: ER 11:26
DX: S90.414A Abrasion, right lesser toe(s), initial encounter (principal); I10 Essential (primary) hypertension; M20.11 Hallux valgus (acquired), right foot; F17.200 Nicotine dependence, unspecified, uncomplicated; M10.9 Gout, unspecified; Z98.890 Other specified postprocedural states; M19.071 Primary osteoarthritis, right ankle and foot; W22.8XXA Striking against or struck by other objects, initial encounter; Y93.89 Activity, other specified; Y92.89 Other specified places as the place of occurrence of the external cause; Y99.8 Other external cause status
CPT/HCPCS: 73630; 99283

== ENCOUNTER → 2021-03-18 | Outpatient (CLI) | payer MEDICARE ==
[2021-03-10 13:06] VITALS: BP 152/87
[~2021-03-18] MED LIST changes: +CONTRAST GIVEN. MC PRN; +IOHEXOL 240 MG/ML 50ML VIAL. PO ONE; +IOHEXOL 300 MG/ML 100ML VIAL. IV ONE
--- NOTE | 2021-03-19 08:51 | RAD ---
EXAM: CT OF THE CHEST, ABDOMEN AND PELVIS WITH CONTRAST. HISTORY: Colon cancer. TECHNIQUE: Computed tomography of the chest, abdomen and pelvis was performed after the intravenous a dministration of iodinated contrast. One or more of the following individualized dose reduction techn iques were utilized for this examination: 1. Automated exposure control. 2. Adjustment of the mA and/or kV according to patient size. 3. Use of iterative reconstruction technique. COMPARISON: 06/08/2020. FINDINGS: Bone windows reveal grade 1 anterolisthesis at L4-5. Central canal stenosis appears severe at this level. There are no pathologically enlarged mediastinal or axillary lymph nodes. There is no pleural or rashaad cardial effusion. The heart is not enlarged. There are atherosclerotic calcifications of the coronary arteries. There is mild paraseptal emphysema in the apices. Focal scarring in the left upper lobe medially is n ot significantly changed and appears benign. There is a calcified granuloma in the right lower lobe. 2 hypoattenuating lesions in hepatic segment 4A are stable and likely reflect cysts measuring up to 1 .3 cm. Multiple additional cysts or inferiorly measure up to 2.2 cm. The largest cyst previously has decreased in size and now measures 1.3 cm with overlying capsular retraction. The gallbladder, pancreas, spleen and adrenal glands are unremarkable. Benign-appearing bilateral kings al cysts measure up to 12 mm. There are no pathologically enlarged lymph nodes. The prostate is moderately enlarged at 5.5 x 4.0 cm. The bladder is decompressed but demonstrates mil d wall thickening. There are changes of right partial colectomy. Mild fat stranding lateral to the anastomosis has incre ased since the prior study, there is now a 9 mm adjacent mesenteric lymph node. No clear recurrent ma ss is appreciated at the anastomosis. There is no ascites. No omental or peritoneal lesions are appre ciated. There is no small bowel obstruction. Previously noted rectal wall thickening and perirectal s tranding has resolved. IMPRESSION: 1. New mild stranding adjacent to the right colonic anastomosis, with a new 9 mm regional mesenteric lymph node. This may be postprocedural or inflammatory, but is indeterminate. No clear mass is apprec iable at the anastomosis. Three-month follow-up is suggested. 2. Resolution of previously noted rectal wall thickening and perirectal stranding. 3. Nonfocal bladder wall thickening suggests chronic outlet obstruction or inflammation. Electronically signed by: Edwin Forrester MD (03/19/2021 8:48 AM) [facility]
== END ==
LOC: CT 10:45
PROVIDERS: ATTEND Internal Medicine Hematology & Oncology
DX: C18.0 Malignant neoplasm of cecum (principal); I25.10 Atherosclerotic heart disease of native coronary artery without angina pectoris; J84.10 Pulmonary fibrosis, unspecified; J98.4 Other disorders of lung; K76.89 Other specified diseases of liver; N28.1 Cyst of kidney, acquired
CPT/HCPCS: 71260; 74177; Q9966; Q9967

== ENCOUNTER 2021-04-19 12:15 | Emergency (ER) | payer MEDICARE ==
[~2021-04-19] VITALS: Ht 165.1 cm; Wt 65.0 kg
[~2021-04-19 12:15] MED LIST changes: -CONTRAST GIVEN. MC PRN; -IOHEXOL 240 MG/ML 50ML VIAL. PO ONE; -IOHEXOL 300 MG/ML 100ML VIAL. IV ONE
--- NOTE | 2021-04-19 13:04 | PHYS DOC ---
Past Medical History Past Medical History: Hypertension Additional Past Medical Histor: GOUT, ABDOMINAL AND UMBILICAL HERNIA Past Surgical History: Other Additional Past Surgical Histo: VASECTOMY, HERNIA REPAIR Smoking Status: Current Every Day Smoker Alcohol Use: Heavy Drug Use: None General Adult EDM: Chief Complaint: DIZZY/LIGHT HEADED HPI: HPI: Patient is a 80 year old male who is here for an episode of dizziness which began at home today, while standing up and cooking food. He describes lightheadedness. He denies symptoms of vertigo. He denies headache, vision loss, numbness or tingling, motor weakness, chest pain, palpitations, dyspnea, nausea vomiting, abdominal pain. He denies fall, head injury or syncope. He reports that he is already feeling better since being here. He admits to daily alcohol use. He drank alcohol last night, into the morning. He denies any history of alcohol withdrawal or seizures. He reports that he thought he has been eating and drinking appropriately. Review of Systems: Review of Systems: Constitutional: Denies fever or chills. [] Eyes: Denies change in visual acuity. [] HENT: Denies nasal congestion or sore throat. [] Respiratory: Denies cough or shortness of breath. [] Cardiovascular: Denies chest pain or edema. [] GI: Denies abdominal pain, nausea, vomiting, bloody stools or diarrhea. [] : Denies urinary symptoms. Musculoskeletal: Denies back pain or joint pain. [] Integument: Denies rash. [] Neurologic: Denies headache, focal weakness or sensory changes. Reports dizziness/lightheadedness. Denies vertigo. Denies numbness, tingling, motor weakness. Denies syncope or near syncope. Psychiatric: Denies depression or anxiety. Admits to chronic alcohol use, admits to marijuana use. Heart Score: C/O Chest Pain: No Risk Factors: Risk Factors: DM, Current or recent (<one month) smoker, HTN, HLP, family history of CAD, obesity. Risk Scores: Score 0 - 3: 2.5% MACE over next 6 weeks - Discharge Home Score 4 - 6: 20.3% MACE over next 6 weeks - Admit for Clinical Observation Score 7 - 10: 72.7% MACE over next 6 weeks - Early Invasive Strategies Allergies: Allergies: Allergies Coded Allergies Type Severity Reaction Last Updated Verified No Known Drug Allergies 02/21/20 No Physical Exam: PE: Constitutional: Well developed, well nourished, no acute distress, non-toxic appearance. [] HENT: Normocephalic, atraumatic, bilateral external ears normal, oropharynx moist, no oral exudates, nose normal. [] Eyes: PERRL, EOMI, conjunctiva normal, no discharge. [] Neck: Normal range of motion, no tenderness, supple, trachea is midline. Cardiovascular:Heart rate regular rhythm, +2 radial and dorsalis pedis pulses bilaterally. Lungs & Thorax: Bilateral breath sounds clear to auscultation [] Abdomen: Bowel sounds normal, soft, no tenderness, no masses, no pulsatile masses. [] Skin: Warm, dry, no erythema, no rash. [] Back: No tenderness, no CVA tenderness. [] Extremities: No tenderness, no cyanosis, no clubbing, ROM intact, no edema. No calf tenderness. [] Neurologic: Alert and oriented X 3, normal motor function, normal sensory function, no focal deficits noted. Cranial nerves II through XII grossly intact. 5 out of 5 motor strength in all 4 extremities. No limb ataxia, no dysmetria. Ambulates with a steady gait. Speech is clear and fluent. Psychologic: Affect normal, judgement normal, mood normal. He is cooperative and pleasant. EKG: EKG: EKG interpreted at 1300 Rhythm: sinus Rate: 89 bpm [place]: normal No STEMI Radiology/Procedures: Radiology/Procedures: IMAGING REPORT Signed PATIENT: JULI BALL ACCOUNT: [id number] : 1940 LOCATION: ER AGE: 80 SEX: M EXAM STATUS: PRE ER ORD. PHYSICIAN: ERICKA NOEL DO REASON: dizziness PROCEDURE: CT HEAD WO CONTRAST CT Head W/O Contrast: History: Reason: dizziness / Spl. Instructions: / History: Comparison: none Axial images were obtained without contrast. The hudson and white matter appears normal and symmetrical for the patients age. There is no mass effect, extraaxial fluid collections or hydrocephalus. There is no gross bleed. There is no focal loss of hudson-white matter distinction to suggest acute ischemia, i.e. stroke. Impression: No acute findings. PQRS Compliance Statement: One or more of the following individualized dose reduction techniques were utilized for this examination: 1. Automated exposure control 2. Adjustment of the mA and/or kV according to patient size 3. Use of iterative reconstruction technique Electronically signed by: Sheyla Paniagua III, MD (04/19/2021 2:03 PM) [facility] DICTATED and SIGNED BY: SHEYLA PANIAGUA III, MD DATE: 04/19/21 [id number] 0 Course & Med Decision Making: Course & Med Decision Making Pertinent Labs and Imaging studies reviewed. (See chart for details) Patient is given IV fluid bolus. He is resting comfortably. He is anxiously awaiting discharge. He is smiling, is asking for food and drink, he is still ambulatory with a steady gait. He denies any dizziness. He denies pain or discomfort. He manifests no evidence of alcohol withdrawal or any distress. I have discussed the findings, differential diagnosis and plan of care with him. No indication for further emergent imaging, invasive exams or admission at this time. I recommend that he follow up with his PCP. I recommend that he regularly and stay well hydrated. Strict return precautions are given. He verbalizes understanding. Dragon Disclaimer: Dragon Disclaimer: This electronic medical record was generated, in whole or in part, using a voice recognition dictation system. Departure Departure Impression: Primary Impression: Dizziness Disposition: 01 HOME / SELF CARE / HOMELESS Condition: STABLE Referrals: YANI CORBETT MD (PCP) Patient Instructions: Dizziness Additional Instructions: Stay well-hydrated, drink plenty of clear fluids. Stand up slowly. Avoid any unnecessary, new or strenuous activity. Return to the ER for chest pain, shortness of breath, nausea vomiting, dehydration, focal weakness, fall, head injury or passing out or any other concerns. Please follow-up with your primary care physician. ERICKA NOEL DO Apr 19, 2021 13:04
[2021-04-19] MEDS ORDERED: IV NORMAL SALINE 1000ML BAG 1,000 ML IV ONE (13:15)
[2021-04-19 13:44] LABS: BASO % 1 % (0-3); EOS % 1 % (0-3); HEMATOCRIT 38.7 % (39.0-53.0); HEMOGLOBIN 13.3 g/dL (13.0-17.5); LYMPH # 0.4 x10^3/uL (1.0-4.8); LYMPH % 7 % (24-48); MEAN CORPUSCULAR HEMOGLOBIN 35 pg (25-35); MEAN CORPUSCULAR HGB CONC 34 g/dL (31-37); MEAN CORPUSCULAR VOLUME 103 fL (79-100); MONO # 0.4 x10^3/uL (0.0-1.1); MONO % 6 % (0-9); NEUT # 5.7 x10^3/uL (1.8-7.7); NEUT % 86 % (31-73); PLATELET COUNT 202 x10^3/uL (140-400); RED BLOOD COUNT 3.77 x10^6/uL (4.30-5.70); RED CELL DISTRIBUTION WIDTH 13.1 % (11.5-14.5); WHITE BLOOD COUNT 6.6 x10^3/uL (4.0-11.0)
[2021-04-19 13:54] LABS: CREATININE 1.1 mg/dL (0.7-1.3); GFR 78.1; MAGNESIUM 1.8 mg/dL (1.8-2.4); POTASSIUM 4.3 mmol/L (3.5-5.1)
--- NOTE | 2021-04-19 14:06 | RAD ---
CT Head W/O Contrast: History: Reason: dizziness / Spl. Instructions: / History: Comparison: none Axial images were obtained without contrast. The hudson and white matter appears normal and symmetrical for the patients age. There is no mass effe ct, extraaxial fluid collections or hydrocephalus. There is no gross bleed. There is no focal loss of hudson-white matter distinction to suggest acute ischemia, i.e. stroke. Impression: No acute findings. RS Compliance Statement: One or more of the following individualized dose reduction techniques were utilized for this examinat ion: 1. Automated exposure control 2. Adjustment of the mA and/or kV according to patient size 3. Use of iterative reconstruction technique Electronically signed by: Harsha Gonzalez III, MD (04/19/2021 2:03 PM) [facility]
[2021-04-19 15:51] VITALS: BP 157/68
[2021-04-19 16:06] LABS: BILIRUBIN,URINE NEGATIVE (NEG); CLARITY,URINE CLEAR; COLOR,URINE YELLOW; NITRITE,URINE NEGATIVE (NEG); PROTEIN,URINE 30 mg/dL (NEG-TRACE); UROBILINOGEN,URINE 0.2 mg/dL (0.2 mg/dL)
[2021-04-19 16:20] LABS: HYALINE CASTS, URINE MANY /HPF
[2021-04-19 16:21] LABS: BACTERIA,URINE 0 /HPF (0-FEW)
== END 2021-04-19 16:15 | disposition home or self-care (01) ==
LOC: ER 12:15
DX: R42 Dizziness and giddiness (principal); I10 Essential (primary) hypertension; F17.200 Nicotine dependence, unspecified, uncomplicated
CPT/HCPCS: 36415; 70450; 80048; 81001; 83735; 84484; 85025; 96360; 99284; G0480; J7030

== ENCOUNTER 2021-05-16 14:21 | Inpatient (IN) | payer MEDICARE ==
[~2021-05-16] VITALS: Ht 170.2 cm; Wt 81.8 kg
[2021-05-16] MEDS ORDERED: IV NORMAL SALINE 1000ML BAG 1,000 ML IV ONE (15:00)
--- NOTE | 2021-05-16 15:09 | PHYS DOC ---
Past Medical History Past Medical History: Hypertension Additional Past Medical Histor: GOUT, ABDOMINAL AND UMBILICAL HERNIA, COLON CA Past Surgical History: Other Additional Past Surgical Histo: VASECTOMY, HERNIA REPAIR, COLON SX Smoking Status: Current Every Day Smoker Alcohol Use: Heavy Drug Use: None General Adult EDM: Chief Complaint: NEAR SYNCOPE HPI: HPI: Is an 81-year-old male who presents to the emergency department for lightheadedness. Patient reports that he has had lightheadedness for a while and he has been previously seen in this emergency department 1 month ago for similar complaint. Lightheadedness is not worse with position changes or head movements. Patient reports that he is a daily drinker and he has drank a pint of whiskey and 3 beers prior to ER arrival. He denies any pain, chest pain, shortness of breath, vision changes, nausea, vomiting, abdominal pain, falls or trauma or syncopal episodes. Review of Systems: Review of Systems: Eyes: See HPI Respiratory: See HPI Cardiovascular: See HPI GI: See HPI Neurologic: See HPI Heart Score: C/O Chest Pain: No Risk Factors: Risk Factors: DM, Current or recent (<one month) smoker, HTN, HLP, family history of CAD, obesity. Risk Scores: Score 0 - 3: 2.5% MACE over next 6 weeks - Discharge Home Score 4 - 6: 20.3% MACE over next 6 weeks - Admit for Clinical Observation Score 7 - 10: 72.7% MACE over next 6 weeks - Early Invasive Strategies Current Medications: Current Medications Medications (Trade) Dose Ordered Sig/Li Start Time Stop Time Status Last Admin Dose Admin Sodium Chloride 1,000 ml @ 1,000 mls/hr 1X ONCE 05/16/21 15:00 05/16/21 15:59 Allergies: Allergies: Allergies Coded Allergies Type Severity Reaction Last Updated Verified No Known Drug Allergies 02/21/20 No Physical Exam: PE: Constitutional: Well developed, well nourished, no acute distress, non-toxic appearance. [] HENT: Normocephalic, atraumatic, bilateral external ears normal, oropharynx moist, no oral exudates, nose normal. [] Eyes: PERRL, 3mm bilaterally, EOMI, conjunctiva normal, no discharge. [] Neck: Normal range of motion, no tenderness, supple, no stridor. [] Cardiovascular:Heart rate regular rhythm, no murmur [] Lungs & Thorax: Bilateral breath sounds clear to auscultation [] Abdomen: Bowel sounds normal, soft, no tenderness, no masses, no pulsatile masses. [] Skin: Warm, dry, no erythema, no rash. [] Back: No tenderness, normal rom Extremities: No tenderness, no cyanosis, no clubbing, ROM intact, no edema. [] Neurologic: Alert and oriented X 3, normal motor function, normal sensory function, no focal deficits noted, no pronator drift, moving all 4 extremities equally, no speech changes. [] Psychologic: Affect normal, judgement normal, mood normal. [] Current Patient Data: Labs: Laboratory Tests Test 05/16/21 15:00 05/16/21 15:20 05/16/21 16:00 White Blood Count 4.7 x10^3/uL Red Blood Count 3.66 x10^6/uL Hemoglobin 13.2 g/dL Hematocrit 38.4 % Mean Corpuscular Volume 105 fL Mean Corpuscular Hemoglobin 36 pg Mean Corpuscular Hemoglobin Concent 34 g/dL Red Cell Distribution Width 13.9 % Platelet Count 169 x10^3/uL Neutrophils (%) (Auto) 79 % Lymphocytes (%) (Auto) 11 % Monocytes (%) (Auto) 8 % Eosinophils (%) (Auto) 1 % Basophils (%) (Auto) 1 % Neutrophils # (Auto) 3.7 x10^3/uL Lymphocytes # (Auto) 0.5 x10^3/uL Monocytes # (Auto) 0.4 x10^3/uL Eosinophils # (Auto) 0.0 x10^3/uL Basophils # (Auto) 0.1 x10^3/uL Sodium Level 133 mmol/L Potassium Level 3.5 mmol/L Chloride Level 98 mmol/L Carbon Dioxide Level 20 mmol/L Anion Gap 15 Blood Urea Nitrogen 13 mg/dL Creatinine 1.1 mg/dL Estimated GFR (Cockcroft-Gault) 77.9 BUN/Creatinine Ratio 12 Glucose Level 45 mg/dL Calcium Level 8.2 mg/dL Magnesium Level 1.8 mg/dL Total Bilirubin 0.5 mg/dL Aspartate Amino Transf (AST/SGOT) 78 U/L Alanine Aminotransferase (ALT/SGPT) 34 U/L Alkaline Phosphatase 73 U/L Troponin I High Sensitivity 17 ng/L Total Protein 6.9 g/dL Albumin 3.5 g/dL Albumin/Globulin Ratio 1.0 Ethyl Alcohol Level 101 mg/dL Urine Collection Type Unknown Urine Color Yellow Urine Clarity Clear Urine pH 5.0 Urine Specific [place] 1.015 Urine Protein 30 mg/dL Urine Glucose (UA) Negative mg/dL Urine Ketones (Stick) 15 mg/dL Urine Blood Negative Urine Nitrite Negative Urine Bilirubin Negative Urine Urobilinogen Dipstick 0.2 mg/dL Urine Leukocyte Esterase Negative Urine RBC 0 /HPF Urine WBC 0 /HPF Urine Bacteria 0 /HPF Urine Mucus Slight /LPF Urine Opiates Screen Neg Urine Methadone Screen Neg Urine Barbiturates Neg Urine Phencyclidine Screen Neg Urine Amphetamine/Methamphetamine Neg Urine Benzodiazepines Screen Neg Urine Cocaine Screen Neg Urine Cannabinoids Screen Pos Urine Ethyl Alcohol Pos Glucose (Fingerstick) 142 mg/dL Current Medications Medications (Trade) Dose Ordered Sig/Li Route PRN Reason Start Time Stop Time Status Last Admin Dose Admin Sodium Chloride 1,000 ml @ 1,000 mls/hr 1X ONCE IV 05/16/21 15:00 05/16/21 15:59 DC 05/16/21 15:19 Dextrose (Dextrose 50%-Water Syringe) 25 gm 1X ONCE IV 05/16/21 15:45 05/16/21 15:46 DC 05/16/21 15:38 Vital Signs: Vital Signs Date Time Temp Pulse Resp B/P (MAP) Pulse Ox O2 Delivery O2 Flow Rate FiO2 05/16/21 14:49 97.4 71 18 173/81 (111) 97 Room Air 97.4 EKG: EKG: EKG performed by ER staff at 1458 shows sinus rhythm, no STEMI read by Dr. Johnson at 1506 Radiology/Procedures: Radiology/Procedures: [] Chest AP portable at 1502: Reason for examination: near syncope Comparison is made to previous study dated 02/19/2020.: The heart size is normal. Mediastinum is unremarkable. Lung de santiago are clear except for small calcified granuloma in the right lower lung field. No acute bony abnormalities are seen. Impression: No acute cardiopulmonary disease. Electronically signed by: Elissa Eagle MD (05/16/2021 3:15 PM) [id number] DICTATED and SIGNED BY: ELISSA EAGLE MD DATE: 05/16/21 [id number] 0 Course & Med Decision Making: Course & Med Decision Making Pertinent Labs and Imaging studies reviewed. (See chart for details) Patient presents to ER for lightheadedness. Work up consists of blood work, EKG, CXR, and CT scan of head. Patient treated with IV fluids. Patient's AST was 78, likely due to his alcoholism, alcohol level was 101. His blood sugar was 45, this was treated with an amp of dextrose and patient is tolerating juice. Following treatment his blood sugar is 142. Patient is alert and oriented x4. He stated that he did not wanted being admitted to the hospital for his near syncope and hypoglycemia he is capable of making his own medical decisions. Patient understands the risks associated with leaving AGAINST MEDICAL ADVICE which includes worsening of condition and . Following my discussion with patient, he was assisted to the bathroom and became very dizzy, he is agreeable to admission at this time. I discussed patient's findings with Dr. Soto who agreed to admit the patient under his services. ER bridge orders placed. Savana Disclaimer: Savana Disclaimer: This electronic medical record was generated, in whole or in part, using a voice recognition dictation system. Departure Departure Impression: Primary Impression: Hypoglycemia Additional Impression: Near syncope Disposition: ADMITTED INPATIENT Condition: STABLE Referrals: YANI CORBETT MD (PCP) KATHARINE HUITRON IT ADMINISTRATIVE ASSISTANT May 16, 2021 15:09
[2021-05-16 15:10] LABS: BASO # 0.1 x10^3/uL (0.0-0.2); BASO % 1 % (0-3); EOS % 1 % (0-3); HEMATOCRIT 38.4 % (39.0-53.0); HEMOGLOBIN 13.2 g/dL (13.0-17.5); LYMPH # 0.5 x10^3/uL (1.0-4.8); LYMPH % 11 % (24-48); MEAN CORPUSCULAR HEMOGLOBIN 36 pg (25-35); MEAN CORPUSCULAR HGB CONC 34 g/dL (31-37); MEAN CORPUSCULAR VOLUME 105 fL (79-100); MONO # 0.4 x10^3/uL (0.0-1.1); MONO % 8 % (0-9); NEUT # 3.7 x10^3/uL (1.8-7.7); NEUT % 79 % (31-73); PLATELET COUNT 169 x10^3/uL (140-400); RED BLOOD COUNT 3.66 x10^6/uL (4.30-5.70); RED CELL DISTRIBUTION WIDTH 13.9 % (11.5-14.5); WHITE BLOOD COUNT 4.7 x10^3/uL (4.0-11.0)
--- NOTE | 2021-05-16 15:17 | RAD ---
Chest AP portable at 1502: Reason for examination: near syncope Comparison is made to previous study dated 02/19/2020.: The heart size is normal. Mediastinum is unremarkable. Lung de santiago are clear except for small calcifi ed granuloma in the right lower lung field. No acute bony abnormalities are seen. Impression: No acute cardiopulmonary disease. Electronically signed by: Elissa Davenport MD (05/16/2021 3:15 PM) [id number]
[2021-05-16 15:25] LABS: ALBUMIN 3.5 g/dL (3.4-5.0); CALCIUM 8.2 mg/dL (8.5-10.1); CREATININE 1.1 mg/dL (0.7-1.3); GFR 77.9; MAGNESIUM 1.8 mg/dL (1.8-2.4); POTASSIUM 3.5 mmol/L (3.5-5.1); TOTAL BILIRUBIN 0.5 mg/dL (0.2-1.0); TOTAL PROTEIN 6.9 g/dL (6.4-8.2)
[2021-05-16 15:33] LABS: BILIRUBIN,URINE NEGATIVE (NEG); CLARITY,URINE CLEAR; COLOR,URINE YELLOW; NITRITE,URINE NEGATIVE (NEG); PROTEIN,URINE 30 mg/dL (NEG-TRACE); UROBILINOGEN,URINE 0.2 mg/dL (0.2 mg/dL)
[2021-05-16 15:37] LABS: BARBITURATES NEG (NEG); BENZODIAZEPINES NEG (NEG); CANNABINOIDS POS (NEG); COCAINE NEG (NEG); METHADONE NEG (NEG); OPIATES NEG (NEG); PHENCYCLIDINE NEG (NEG)
[2021-05-16 15:41] LABS: BACTERIA,URINE 0 /HPF (0-FEW); RBC,URINE 0 /HPF (0-2); WBC,URINE 0 /HPF (0-4)
--- NOTE | 2021-05-16 15:41 | RAD ---
CT HEAD INDICATION: Near syncope COMPARISON: None Available. Exposure: One or more of the following individualized dose reduction techniques were utilized for thi s examination: 1. Automated exposure control 2. Adjustment of the mA and/or kV according to patient size 3. Use of iterative reconstruction technique TECHNIQUE: 5 mm contiguous axial images were obtained from the skull base to the vertex in both bone and soft tissue algorithm. FINDINGS: No abnormal attenuation within the brain parenchyma. No evidence of acute intracranial hemorrhage. No extra-axial fluid collections. No mass effect or midline shift. Ventricular size is appropriate. Basal cisterns are patent. No fractures identified.Emanuel-white differentiation is preserved.Globes and orbits are within normal l imits. Paranasal sinuses and mastoid air cells are clear. IMPRESSION: No acute intracranial findings. . Electronically signed by: Mono Santiago MD (05/16/2021 3:38 PM) [id number]
[2021-05-16 15:44] LABS: AMPHETAMINE/METHAMPHETAMINE NEG (NEG)
[2021-05-16] MEDS ORDERED: DEXTROSE 50% 25 GM / 50ML DISP.SYRIN. IV ONE (15:45)
[2021-05-16] MEDS ORDERED: DEXTROSE 50% 25 GM / 50ML DISP.SYRIN. IV PRN (16:15)
[2021-05-16 16:37] VITALS: BP 191/88
--- NOTE | 2021-05-16 17:28 | EKG ---
[facility] [address] [place] [address] Test Date: 2021-05-16 Test Time: 14:58:27 Pat Name: JULI BALL Department: Room: 548 1 Gender: M Pharmacy Specialist: Silvia : 1940 Requested By: KATHARINE HUITRON Order Number: [id number] Reading MD: De Pablo MD Measurements Intervals [place] Rate: 67 P: 16 NC: 194 QRS: 23 QRSD: 82 T: 24 QT: 414 QTc: 440 Interpretive Statements SINUS RHYTHM Electronically Signed On 05-16-2021 20:18:28 WATER METER INSTALLER by De Pablo MD
[2021-05-16] MEDS ORDERED: THIAMINE INJ 100 MG in IV DEXTROSE 5% 50 ML IV ONE (17:30)
[2021-05-17] MEDS ORDERED: ALLOPURINOL 100 MG TABLET. PO SCH (09:00)
[2021-05-17] MEDS ORDERED: LISINOPRIL 20 MG TABLET PO SCH (09:00)
[2021-05-17] MEDS ORDERED: THIAMINE 100 MG TABLET. PO SCH (09:00)
--- NOTE | 2021-05-20 21:44 | PDOC ---
Provider Note Date of Service: DATE: 05/20/21 TIME: 21:43 Provider Note combined H&P and Discharge summary dictated.#[id number]. Justifications for Admission Other Justification colon mass with obstruction YANI CORBETT MD May 20, 2021 21:44
--- NOTE | 2021-05-20 22:36 | DS ---
DATE OF DISCHARGE: 05/16/2021 COMBINED HISTORY AND PHYSICAL AND DISCHARGE SUMMARY HOSPITAL COURSE: The patient is an 81-year-old male. The patient was seen in the Emergency Room for lightheadedness and he has been drinking heavily. His blood sugar was low, 45. The patient was given D50 and his condition improved. He was supposed to be admitted for hypoglycemia but the patient discharged from the Emergency Room against medical advice. He left the Emergency Room AMA before the patient could be seen, so this is a combined H and P and discharge summary on the patient. CBC and chem profile unremarkable except glucose 45, went up to 142. Urine negative for infection. Alcohol 101. Cannabinoid was positive. CT head, no acute abnormality. Chest x-ray, chronic scarring. FINAL IMPRESSION: 1. Hypoglycemia secondary to excessive alcohol intake. 2. Hypertension. 3. History of colon cancer, status post resection. DISPOSITION: The patient left the hospital against medical advice from the Emergency Room. GRETA DR: Jorge L TID: [id number]
== END 2021-05-16 18:00 | disposition left against medical advice (07) | DRG 641 ==
LOC: ER 14:21 → 5 SOUTH 16:19
PROVIDERS: ADMIT Internal Medicine; ATTEND Internal Medicine
DX: E16.2 Hypoglycemia, unspecified (principal); I10 Essential (primary) hypertension; Z85.038 Personal history of other malignant neoplasm of large intestine; Z87.891 Personal history of nicotine dependence; M10.9 Gout, unspecified; Z53.29 Procedure and treatment not carried out because of patient's decision for other reasons
CPT/HCPCS: 36415; 70450; 71045; 80053; 80307; 81001; 82962; 83735; 84484; 85025; 93005; 96361; 96374; G0480; J7030; 99285-25; G0378

== ENCOUNTER → 2021-09-30 | Outpatient (CLI) | payer BC ==
[~2021-09-30] MED LIST changes: +IOHEXOL 240 MG/ML 50ML VIAL. PO ONE; +IOHEXOL 300 MG/ML 100ML VIAL. IV ONE
--- NOTE | 2021-09-30 16:30 | RAD ---
CT CHEST+ABD+PELVIS W dated 09/30/2021 1:39 PM Indication:Reason: COLON CANCER FOLLOW UP, ABDOMINAL PAIN / Spl. Instructions: [id number] 75ML, OMNI 240 PO 30 MLS / History: Comparison: CT 03/18/2021. Technique: Helical images were obtained through the chest, abdomen and pelvis following oral contrast ingestion and using an infusion of 75 mL Omnipaque 300. One or more of the following individualized dose reduction techniques were utilized for this examinat ion: 1. Automated exposure control 2. Adjustment of the mA and/or kV according to patient size 3. Use of iterative reconstruction technique Findings: CT chest: No significant pulmonary mass or nodule is seen. The central airways appear normal. No enla rged lymph nodes are seen. Bone windows show no significant lesion. CT abdomen and pelvis: There is suggestion of some fatty infiltration of the liver. Small low-attenua tion liver lesions persist without clear-cut change. These may be cysts. No new liver parenchymal abn ormality is seen. The spleen appears normal. Both kidneys enhance with contrast. Small cysts are pres ent. No solid mass or obstruction is seen. The adrenal glands are not enlarged. The pancreas appears normal. No retroperitoneal adenopathy is seen. Postoperative changes are again shown from right hemic olectomy. There is less inflammation in the adjacent fat, and a previously described lymph node appea rs to have regressed. No new mesenteric adenopathy is seen. There is no new abdominal mass or other i nflammatory process. Images through the pelvis show no abnormality of the distal ureters or bladder. No pelvic or inguinal adenopathy is seen. There is no new pelvic mass or inflammatory process. No new bone lesion is seen. IMPRESSION: CT chest: No significant new findings. CT abdomen and pelvis: Regression of probable inflammatory changes seen previously near the bowel fredrick stomosis as well as mildly prominent adjacent lymph node. No new adenopathy or new findings to sugges t metastatic disease. Electronically signed by: Huy Carrillo Jr., MD (09/30/2021 4:28 PM) [id number]
== END ==
LOC: CT 12:23
PROVIDERS: ATTEND Internal Medicine
DX: N28.1 Cyst of kidney, acquired (principal); K76.89 Other specified diseases of liver; Z98.890 Other specified postprocedural states
CPT/HCPCS: 71260; 74177; Q9966; Q9967